=== PATIENT | male | born 1950 | race Caucasian/White ===

== ENCOUNTER → 2021-05-08 | Outpatient (CLI) | payer OTHER ==
[~2021-05-08] MED LIST: ATOR80TA59 PO; FLOM0.4C39 PO; METF-839 PO; OMEP10CASR PO; RAMI1CAP21 PO; VITA-183 PO; VITMTA PO
== END ==
LOC: M LABSMTC 09:11
PROVIDERS: ATTEND Anesthesiology
DX: Z11.52 Encounter for screening for COVID-19 (principal)

== ENCOUNTER 2021-05-13 12:52 | Day surgery (SDC) | payer OTHER ==
[~2021-05-13] VITALS: Ht 182.9 cm; Wt 71.3 kg
[~2021-05-13 12:52] MED LIST changes: +LR 1,000 ML IV ONE; +ceFAZolin SOD 2 GM in IV 1 EA IV ONE
--- OUTSIDE RECORDS SUMMARY | 2021-05-13 12:57 | CCD ---
Author Author [facility] Organization [facility] Address Unknown Phone Unavailable Care Team Providers Care Negative Cutter Name Role Phone Amado Nj Unavailable PROBLEMS Type Condition ICD9-CM Code [id number] Code Onset Dates Condition S tatus W/U Status Risk SNOMED Code Notes Problem Elevated PSA R97.20 Active confirmed 5744735 05 Problem Prostate cancer C61 Active confirmed 2549 92204 Problem Other specified disorders of kidney and ureter N28 .89 Active confirmed 634474978 Problem Urinary retention due to benign prostatic hyperplasia N28.89 Active confirmed 837911516 ALLERGIES Allergen (clinical drug ingredient) Drug/Non Drug Allergy do cumented on EMR Reaction Allergy Type Onset Date Status Bee Sting Unknown Drug Allergy Active ENCOUNTERS from 1950 to 2021-05-06 Encounter Location Date Provider Diagnosis [facility] Urology [address] [phone] [place] [address] May, Amado Nj Urinary retention due to benign prostati c hyperplasia N28.89 IMMUNIZATIONS No Information SOCIAL HISTORY Tobacco Use: Social History Observation Description Date Details (start date - stop date) Current Smoker Sex Assigned At : Social History Observation Description Sex Assigned At Unknown Tobacco Use: Question Answer Notes Are you a: current smoker How many cigarettes a day do you smoke? 05-25 REASON FOR REFERRAL No Information VITAL SIGNS Weight 165 lbs May, Weight-kg 74.84 kg May, Height 72 in May, BMI 22.38 kg/m2 May, Heart Rate 88 /min May, Respiratory Rate 18 /min May, Temperature 97.6 degrees Fahrenheit May, Oximetry 99 May, Blood pressure systolic 126 mm Hg May, Blood pressure diastolic 74 mm Hg May, MEDICATIONS Medication SIG (Take, Route, Frequency, Duration) Notes Start Da te End Date Status metFORMIN HCl 500 MG 1 tablet with a meal Orally Once a day for 30 da y(s) Active Tamsulosin HCl 0.4 MG 1 capsule Orally Once a day for 30 day(s) Active Cipro 500 MG 1 tablet Orally every 12 hrs (start taking the evening prior to your procedure) Jan, Not-Taking Ciprofloxacin HCl 500 MG 1 tablet Orally every 12 hrs for 10 day(s) Not-Taking Digestive Advantage - as directed Orally Active Fleet Enema 7-19 GM/118ML as directed Rectal as direct ed the morning of procedure Jan, Not-Taking Atorvastatin Calcium 80 MG 1 tablet Orally Once a day for 30 day(s) Active Multivitamin - 1 tablet Orally Once a day for 30 day(s) Active Ramipril 1.25 MG 1 capsule Orally Once a day for 30 day(s) Active Cholecalciferol 25 MCG (1000 UT) 1 capsule Orally Once a day for 30 day(s) Active Omeprazole 20 MG 1 capsule 30 minutes before morning meal Orally Once a day for 30 day(s) Active PROCEDURES from 1950 to 2021-05-06 Procedure Date Ordered Result Body Site Valdez Catheter Insertion 16F 2021-05-06 N/A Med: Lidocaine Jelly 2% 6ml Intravesically (Glydo) 2021-05-06 N/A RESULTS No Results REASON FOR VISIT CATH CHANGE WITH UCULT COLLECTION MEDICAL (GENERAL) HISTORY Type Description Date Medical History diabetes type 2 Medical History gross hematuria Medical History urinary retention Medical History elevated psa Medical History prostate cancer Surgical History hernia repair Surgical History appendectomy Surgical History stent placement in heart Surgical History TRUS Bx Surgical History fiducial marker placement 02/2021 Hospitalization History surgery Goals Section No Information Health Concerns No Information MEDICAL EQUIPMENT No Information MENTAL STATUS No Information FUNCTIONAL STATUS No Information ASSESSMENTS Encounter Date Diagnosis Assessment Notes Treatment Notes Treatm ent Clinical Notes May, Urinary retention due to sherman ign prostatic hyperplasia (ICD-10 - N28.89) PLAN OF TREATMENT Future Test Test Name Order Date URINE CULTURE [id number] UA URINALYSIS [id number] Next Appt Details Provider Name:Zeynep Oh, 2021-05-06 0 08:00:00 AM, [address], , [place], [address], Provider Name:Amado Llanos Clem, 01:00:00 PM, [address] [address], , [place], [address], Insurance Providers Payer Name Payer Address Payer Phone Insured Name Patient Relati onship to Insured Coverage Start Date Coverage End Date MEDICARE Part A and B [address] [facility] [address] [place] 'S ADMINSTRATION [place] CARE [address] [address] [facility] [address] [place]
--- OUTSIDE RECORDS SUMMARY | 2021-05-13 12:57 | CCD ---
Author Author [facility] Organization [facility] Address Unknown Phone Unavailable Care Team Providers Care Cap And Hat Production Supervisor Name Role Phone Clem Amado Unavailable PROBLEMS Type Condition ICD9-CM Code [id number] Code Onset Dates Condition S tatus W/U Status Risk SNOMED Code Notes Problem Elevated PSA R97.20 Active confirmed 1844503 05 Problem Prostate cancer C61 Active confirmed 2549 27447 Problem Other specified disorders of kidney and ureter N28 .89 Active confirmed 094513754 Problem Urinary retention due to benign prostatic hyperplasia N28.89 Active confirmed 038387553 ALLERGIES Allergen (clinical drug ingredient) Drug/Non Drug Allergy do cumented on EMR Reaction Allergy Type Onset Date Status Bee Sting Unknown Drug Allergy Active ENCOUNTERS from 1950 to 2021-05-10 Encounter Location Date Provider Diagnosis [facility] Urology [address] [address] [phone] [place] [address] May, Amado Nj IMMUNIZATIONS No Information SOCIAL HISTORY Tobacco Use: Social History Observation Description Date Details (start date - stop date) Current Smoker Sex Assigned At : Social History Observation Description Sex Assigned At Unknown Tobacco Use: Question Answer Notes Are you a: current smoker How many cigarettes a day do you smoke? 05-25 REASON FOR REFERRAL No Information VITAL SIGNS No information MEDICATIONS Medication SIG (Take, Route, Frequency, Duration) Notes Start Da te End Date Status Atorvastatin Calcium 80 MG 1 tablet Orally Once a day for 30 day(s) Unknown Multivitamin - 1 tablet Orally Once a day for 30 day(s) Unknown Tamsulosin HCl 0.4 MG 1 capsule Orally Once a day for 30 day(s) Unknown Cipro 500 MG 1 tablet Orally every 12 hrs (start taking the evening prior to your procedure) Jan, Unknown Omeprazole 20 MG 1 capsule 30 minutes before morning meal Orally Once a day for 30 day(s) Unknown Fleet Enema 7-19 GM/118ML as directed Rectal as direct ed the morning of procedure Jan, Unknown Cholecalciferol 25 MCG (1000 UT) 1 capsule Orally Once a day for 30 day(s) Unknown metFORMIN HCl 500 MG 1 tablet with a meal Orally Once a day for 30 da y(s) Unknown Ciprofloxacin HCl 500 MG 1 tablet Orally every 12 hrs for 10 day(s) Unknown levoFLOXacin 500 MG 1 tablet Orally Once a day May, Active Ramipril 1.25 MG 1 capsule Orally Once a day for 30 day(s) Unknown Digestive Advantage - as directed Orally Unknown PROCEDURES No Information RESULTS No Results REASON FOR VISIT abx MEDICAL (GENERAL) HISTORY Type Description Date Medical [...] No Information FUNCTIONAL STATUS No Information ASSESSMENTS No Information PLAN OF TREATMENT Medication Medication Name Sig Start Date Stop Date levoFLOXacin 500 MG 1 tablet Orally Once a day May, Next Appt Details Provider Name:Zeynep Oh, 2021-05-06 0 08:00:00 AM, [address] [address], , [place], [address], Provider Name:Amado Nj, 01:00:00 PM, [address] [address], , [place], [address], Insurance Providers Payer Name Payer Address Payer Phone Insured Name Patient Relati onship to Insured Coverage Start Date Coverage End Date MEDICARE Part A and B [address] [facility] [phone] [place] 'S ADMINSTRATION [place]) NON VA CARE [address] [address] [place] [address] [address] [address]
--- OUTSIDE RECORDS SUMMARY | 2021-05-13 12:57 | CCD ---
Author Author [facility] Organization [facility] Address Unknown Phone Unavailable Care Team Providers Care Salvager Helper Name Role Phone Clem Amado Unavailable PROBLEMS Type Condition ICD9-CM Code INM46-NC Code Onset Dates Condition S tatus W/U Status Risk SNOMED Code Notes Problem Elevated PSA R97.20 Active confirmed 7827278 05 Problem Prostate cancer C61 Active confirmed 2549 59516 Problem Other specified disorders of kidney and ureter N28 .89 Active confirmed 348021790 Problem Urinary retention due to benign prostatic hyperplasia N28.89 Active confirmed 095222676 ALLERGIES Allergen (clinical drug ingredient) Drug/Non Drug Allergy do cumented on EMR Reaction Allergy Type Onset Date Status Bee Sting Unknown Drug Allergy Active ENCOUNTERS from 1950 to 2021-05-06 Encounter Location Date Provider Diagnosis [facility] Urology [address] [address] [phone] [place] [address] May, Amado Nj IMMUNIZATIONS No Information SOCIAL [...] a day for 30 day(s) Active PROCEDURES No Information RESULTS No Results REASON FOR VISIT cath orders and culture orders MEDICAL (GENERAL) HISTORY Type Description Date Medical [...] Information ASSESSMENTS No Information PLAN OF TREATMENT Next Appt Details Provider Name:Zeynep Oh, 2021-05-06 0 08:00:00 AM, [address] [address], , [place], [address], Provider Name:Amado Nj, 01:00:00 PM, [address] [address], , [place], [address], Insurance Providers Payer Name Payer Address Payer Phone Insured Name Patient Relati onship to Insured Coverage Start Date Coverage End Date 'S ADMINSTRATION ([place]) NON VA CARE [address] [address] [facility] [address] [place] MEDICARE Part A and B [address] [facility] [address] [place]
--- OUTSIDE RECORDS SUMMARY | 2021-05-13 12:58 | CCD ---
Author Author [facility] Organization [facility] ems Address Unknown Phone Unavailable Care Team Providers Care Ice Cream Truck Driver Name Role Phone Amado Nj Unavailable PROBLEMS Type Condition ICD9-CM Code UFY40-DG Code Onset Dates Condition S tatus W/U Status Risk SNOMED Code Notes Problem Elevated PSA R97.20 Active confirmed 5555841 05 Problem Prostate cancer C61 Active confirmed 2549 75303 Problem Urinary retention due to benign prostatic hyperplasia N28.89 Active confirmed 968222309 ALLERGIES Allergen (clinical drug ingredient) Drug/Non Drug Allergy do cumented on EMR Reaction Allergy Type Onset Date Status Bees Unknown Non Drug Allergy Active ENCOUNTERS from 1950 to 2021-02-26 Encounter Location Date Provider Diagnosis [facility] Urology [address] [facility] [phone] [place] [address] Feb, Amadodane Montenegroler Prostate cancer C61 IMMUNIZATIONS No Information SOCIAL HISTORY Tobacco Use: Social History Observation Description Date Details (start date - stop date) Current Smoker Sex Assigned At : Social History Observation Description Sex Assigned At Unknown Tobacco Use: Question Answer Notes Are you a: current smoker How many cigarettes a day do you smoke? 05-25 REASON FOR REFERRAL No Information VITAL SIGNS Weight 165 lbs Feb, Weight-kg 74.84 kg Feb, Height 72 in Feb, BMI 22.38 kg/m2 Feb, Heart Rate 97 /min Feb, Respiratory Rate 18 /min Feb, Oximetry 98 Feb, Blood pressure systolic 124 mm Hg Feb, Blood pressure diastolic 80 mm Hg Feb, MEDICATIONS Medication SIG (Take, Route, Frequency, Duration) Notes Start Da te End Date Status metFORMIN HCl 500 MG 1 tablet with a meal Orally Once a day for 30 da y(s) Active Ciprofloxacin HCl 500 MG 1 tablet Orally every 12 hrs for 10 day(s) Not-Taking Atorvastatin Calcium 80 MG 1 tablet Orally Once a day for 30 day(s) Active Omeprazole 20 MG 1 capsule 30 minutes before morning meal Orally Once a day for 30 day(s) Active Fleet Enema 7-19 GM/118ML as directed Rectal as direct ed the morning of procedure Jan, Active Tamsulosin HCl 0.4 MG 1 capsule Orally Once a day for 30 day(s) Active Digestive Advantage - as directed Orally Active Multivitamin - 1 tablet Orally Once a day for 30 day(s) Active Ramipril 1.25 MG 1 capsule Orally Once a day for 30 day(s) Active Cholecalciferol 25 MCG (1000 UT) 1 capsule Orally Once a day for 30 day(s) Active Cipro 500 MG 1 tablet Orally every 12 hrs (start taking the evening prior to your procedure) Jan, Active PROCEDURES No Information RESULTS No Results REASON FOR VISIT f/u CT and Bone Scan results MEDICAL (GENERAL) HISTORY Type Description Date Medical History diabetes type 2 Medical History gross hematuria Medical History urinary retention Medical History elevated psa Surgical History hernia repair Surgical History appendectomy Surgical History stent placement in heart Surgical History TRUS Bx Hospitalization History surgery Goals Section No Information Health Concerns No Information MEDICAL EQUIPMENT No Information MENTAL STATUS No Information FUNCTIONAL STATUS No Information ASSESSMENTS Encounter Date Diagnosis Assessment Notes Treatment Notes Treatm ent Clinical Notes Feb, Prostate cancer (ICD-10 - C61) - CT and bone scan results discussed - EBRT recommended for treatment - will send a referral to [facility] rad onc for EBRT - informed consent signed for prostate fiducial marker placement - f/u for fiducials, eligard injection, and cath change in approx 2 wks PLAN OF TREATMENT Medication Medication Name Sig Start Date Stop Date Cipro 500 MG 1 tablet Orally every 12 hrs (start taking the evening prior to your procedure) Jan, Fleet Enema 7-19 GM/118ML as directed Rectal as direct ed the morning of procedure Jan, Treatment Notes Assessment Notes Clinical Notes Prostate cancer - CT and bone scan r esults discussed- EBRT recommended for treatment- will send a referral to [facility] rad onc for EBRT- informed consent signed for prostate fiducial marker placement- f/u for fiducials, eligard injection, and cath change in approx 2 wks Next Appt Details Provider Name:Amado Nj, 10:15:00 AM, [address] [address], , [place], [address], Insurance Providers Payer Name Payer Address Payer Phone Insured Name Patient Relati onship to Insured Coverage Start Date Coverage End Date 'S ADMINSTRATION ([place]) NON VA CARE [address] [address] [facility] [address] [address] MEDICARE Part A and B [address] [facility] [address] [place] self
--- OUTSIDE RECORDS SUMMARY | 2021-05-13 12:58 | CCD ---
Author Author [facility] [employer] Organization [facility] [employer] [facility] Address Unknown Phone Unavailable Care Team Providers Care Loaf Counter Name Role Phone Amado Nj Unavailable PROBLEMS Type Condition ICD9-CM Code CDH34-TL Code Onset Dates Condition S tatus W/U Status Risk SNOMED Code Notes Problem Elevated PSA R97.20 Active confirmed 2171438 05 Problem Prostate cancer C61 Active confirmed 2549 13892 Problem Urinary retention due to benign prostatic hyperplasia N28.89 Active confirmed 671319684 ALLERGIES Allergen (clinical drug ingredient) Drug/Non Drug Allergy do cumented on EMR Reaction Allergy Type Onset Date Status Bees Unknown Non Drug Allergy Active ENCOUNTERS from 1950 to 2021-03-06 Encounter Location Date Provider Diagnosis [facility] [address] [facility] [facility] [phone] [place] [address] Feb, Amado Nj Prostate cancer C61 and Urinary retentio n due to benign prostatic hyperplasia N28.89 IMMUNIZATIONS No Information SOCIAL HISTORY Tobacco Use: Social History Observation Description Date Details (start date - stop date) Current Smoker Sex Assigned At : Social History Observation Description Sex Assigned At Unknown Tobacco Use: Question Answer Notes Are you a: current smoker How many cigarettes a day do you smoke? 11-20 REASON FOR REFERRAL No Information VITAL SIGNS No information MEDICATIONS Medication SIG (Take, Route, Frequency, Duration) Notes Start Da te End Date Status Digestive Advantage - as directed Orally Active metFORMIN HCl 500 MG 1 tablet with a meal Orally Once a day for 30 da y(s) Active Cholecalciferol 25 MCG (1000 UT) 1 capsule Orally Once a day for 30 day(s) Active Multivitamin - 1 tablet Orally Once a day for 30 day(s) Active Cipro 500 MG 1 tablet Orally every 12 hrs (start taking the evening prior to your procedure) Jan, Active Ciprofloxacin HCl 500 MG 1 tablet Orally every 12 hrs for 10 day(s) Not-Taking Ramipril 1.25 MG 1 capsule Orally Once a day for 30 day(s) Active Omeprazole 20 MG 1 capsule 30 minutes before morning meal Orally Once a day for 30 day(s) Active Atorvastatin Calcium 80 MG 1 tablet Orally Once a day for 30 day(s) Active Tamsulosin HCl 0.4 MG 1 capsule Orally Once a day for 30 day(s) Active Fleet Enema 7-19 GM/118ML as directed Rectal as direct ed the morning of procedure Jan, Active PROCEDURES from 1950 to 2021-03-06 Procedure Date Ordered Result Body Site Valdez Catheter Coude Insertion 16F 2021-03-05 N/A Medication: Bupivacaine 0.25% Dilutent 30ml (Marcaine) 2021-02-05 1 N/A Medication: 2% Lidocaine Dilutent 2021-03-05 N/A Medication: Eligard 45mg SQ (Leuprolide) 2021-03-05 N/A Med: Lidocaine Jelly 2% 6ml Intravesically (Glydo) 2021-03-05 N/A RESULTS No Results REASON FOR VISIT fiducial marker, Eligarmariana, Cath change MEDICAL (GENERAL) HISTORY Type Description Date Medical [...] Notes Feb, Prostate cancer (ICD-10 - C61) Feb, Urinary retention due to sherman ign prostatic hyperplasia (ICD-10 - N28.89) PLAN OF TREATMENT Treatment Notes Test Name Order Date SMT FIDUCIARY MARKER PLACEMENT 2021-03-05 Next Appt Details monthly on nurse schedule for humza navarro, 6 months w/ me for eligard and TOV Reason:prostate cancer, urinary retention Provider Name:Amado Nj, 09:00:00 AM, [address] [address], , [place], [address], Provider Name:Amado Nj, 01:00:00 PM, [address] [address], , [place], [address], Follow Up:monthly on nurse schedule for cath changes, 6 months w/ me for eligard and TOVprostate cancer, urinary retention Insurance Providers Payer Name Payer Address Payer Phone Insured Name Patient Relati onship to Insured Coverage Start Date Coverage End Date MEDICARE Part A and B [address] [facility] [phone] [place] 'S [place]MINSTRATION [place]) NON [place]ARE [address] [address] [facility] [address] [address] [address] [address]
--- OUTSIDE RECORDS SUMMARY | 2021-05-13 12:58 | CCD ---
Author Author [facility] [employer] [facility] Organization [facility] [employer] Address Unknown Phone Unavailable Care Team Providers Care Oracle Hrms Developer Name Role Phone ClemAmado russell Unavailable PROBLEMS Type Condition ICD9-CM Code [id number] Code Onset Dates Condition S tatus W/U Status Risk SNOMED Code Notes Problem Elevated PSA R97.20 Active confirmed 6103797 05 Problem Prostate cancer C61 Active confirmed 2549 41500 Problem Urinary retention due to benign prostatic hyperplasia N28.89 Active confirmed 972941924 ALLERGIES Allergen (clinical drug ingredient) Drug/Non Drug Allergy do cumented on EMR Reaction Allergy Type Onset Date Status Bees Unknown Non Drug Allergy Active ENCOUNTERS from 1950 to 2021-02-20 Encounter Location Date Provider Diagnosis [facility] [address] [facility] [facility] [phone] [place] [address] Feb, Amado Nj IMMUNIZATIONS No Information SOCIAL HISTORY [...] a day for 30 da y(s) Active Fleet Enema 7-19 GM/118ML as directed Rectal as directed the morning of biopsy Jan, Active Cholecalciferol 25 MCG (1000 UT) 1 capsule Orally Once a day for 30 day(s) Active Multivitamin - 1 tablet Orally Once a day for 30 day(s) Active Digestive Advantage - as directed Orally Active Omeprazole 20 MG 1 capsule 30 minutes before morning meal Orally Once a day for 30 day(s) Active Cipro 500 MG 1 tablet Orally 1 tab the ni ght before biospy and 1 tab the morning of Jan, Active Atorvastatin Calcium 80 MG 1 tablet Orally Once a day for 30 day(s) Active Ramipril 1.25 MG 1 capsule Orally Once a day for 30 day(s) Active Ciprofloxacin HCl 500 MG 1 tablet Orally every 12 hrs for 10 day(s) Active Tamsulosin HCl 0.4 MG 1 capsule Orally Once a day for 30 day(s) Active PROCEDURES No Information RESULTS No Results REASON FOR VISIT Needs Appt MEDICAL (GENERAL) HISTORY Type Description Date Medical History diabetes type 2 Medical History gross hematuria Medical History urinary retention Medical History elevated psa Surgical History hernia repair Surgical History appendectomy Surgical History stent placement in heart Hospitalization History surgery Goals Section No Information Health Concerns No Information MEDICAL EQUIPMENT No Information MENTAL STATUS No Information FUNCTIONAL STATUS No Information ASSESSMENTS No Information PLAN OF TREATMENT Next Appt Details Provider Name:Amado Nj, 02:00:00 PM, [address] [address], , [place], [address], Insurance Providers Payer Name Payer Address Payer Phone Insured Name Patient Relati onship to Insured Coverage Start Date Coverage End Date MEDICARE Part A and B [address] [facility] [phone] [place] 'S [place]STRATION [place]) [place] [address] [address] [facility] [id number] [place]
--- OUTSIDE RECORDS SUMMARY | 2021-05-13 12:58 | CCD | Summary of Care ---
Author Author [facility] Organization [facility] Address Unknown Phone Unavailable Care Team Providers Care Juice Weigher Name Role Phone Jose Maria Montes De Oca MD PCP Reason for Visit * Reason Comments Prostate Cancer Consult * Consultation (Routine) Referred By Contact Referred To Contact Status Reason Specialty Diagnoses [place] [address] [place] [address] Naren Roque MD [address] [place] [id number] Authorized Radiation Diagnoses Oncology Prostate Ca P rocedures CONSULT Encounter Details Care Team Description Date Type Department Naren Roque MD [address] [place] [address] [id number] Malignant neoplasm of prostate (CMS/HCC) (Primary Dx) 03/13/2021 [facility] RADIATION MEDI CINE Encounter [facility] [address] [place] [address] Allergies No Known Active Allergiesdocumented as of this encounter (statuses as of 04/13/2021) Medications End Date Status Medication Sig Dispensed Refills Start Date Active tamsulosin (FLOMAX) 0.4 Take 0.4 mg 0 mg 24 hr capsule by mouth 1 1 (one) time each day. Active cholecalciferol, vitamin Take by 0 D3, 100 mcg (4,000 unit) mouth. capsule Active multivitamin capsule Take 1 0 capsule by mouth 1 (one) time each day. Active metFORMIN (GLUCOPHAGE) Take 500 mg 0 500 mg tablet by mouth 1 (one) time each day. Active ramipriL (ALTACE) 1.25 mg Take 1.25 mg 0 capsule by mouth 1 (one) time each day. Active atorvastatin (LIPITOR) 80 Take 80 mg by 0 mg tablet mouth 1 (one) time each day. Active omeprazole (PriLOSEC) 20 Take 20 mg by [address] capsule mouth 1 (one) time each day. Do not crush or chew. documented as of this encounter (statuses as of 04/13/2021) Active Problems Problem Noted Date Malignant neoplasm of prostate 03/13/2021 Cancer Staging: Clinical: Stage IIIA (c T1c, cN0, cM0, PSA: 53, Grade Group: 4) - Signed by Naren Roque MD on 03/13/20 21 documented as of this encounter (statuses as of 04/13/2021) Social History Date Tobacco Use Types Packs/Day Years Used Current Every Day Smoker Cigarettes 1 62 Smokeless Tobacco: Never Used Comments Alcohol Use Standard Drinks/Week rare use Yes 0 (1 standard drink = 0.6 o z pure alcohol) Alcohol Habits Answer Date Recorded How often do you have a drink containing alcohol? No t asked How many drinks containing alcohol do you have on No t asked a typical day when you are drinking? How often do you have six or more drinks on one Not asked occasion? Comment: rare use 03/13/2021 Sex Assigned at Date Recorded Not on file Date Recorded COVID-19 Exposure Response 03/13/2021 2:26 PM EDT In the last month, have you been in contact with No / Unsure someone who was confirmed or suspected to have Coronavirus / COVID-19? documented as of this encounter Last Filed Vital Signs Reading Time Taken Comments Vital Sign 132/75 03/13/2021 2:43 PM EDT Blood Pressure 94 03/13/2021 2:43 PM EDT Pulse 36.5 C (97.7 F) 03/13/2021 2:43 PM EDT Temperature 20 03/13/2021 2:43 PM EDT Respiratory Rate - - Oxygen Saturation - - Inhaled Oxygen Concentration 74.3 kg (163 lb 12.8 oz) 03/13/2021 2:43 PM EDT Weight 177.8 cm (5' 10") 03/13/2021 2:43 PM EDT Height 23.5 03/13/2021 2:43 PM EDT Body Mass Index documented in this encounter Progress Notes * Naren Roque MD - 03/13/2021 3:00 PM EDT Images from the original note were not included. RADIATION ONCOLOGY CONSULT NAME: Jerson Ken Date of consultation: 03/13/2021 Referring doctor: Amado Nj MD RADIATION ONCOLOGIST: Dr. Roque UROLOGIST: Dr. Nj PCP: Dr. Montes De Oca Diagnosis and stage: Cancer Staging Malignant neoplasm of prostate (CMS/HCC) Staging form: Prostate, AJCC 8th Edition - Clinical: Stage IIIA (cT1c, cN0, cM0, PSA: 53, Grade Group: 4) - Signed by Virgil Roque MD on 03/13/2021 Subjective HISTORY OF PRESENT ILLNESS: Jerson Ken is a 70 y.o. male with prostate carcinoma group IIIA ([id number], Gleaso n 8 = 4 + 4, pre-treatment PSA 53). The patient is here for discussion about ra diotherapy by the request of Dr. Nj. His oncologic history started with an elevated PSA. He underwent prostate biopsy on 01/22/21. 06/16 cores positive for carcinoma. T he highest score was Abrahan 8 = 4 + 4. Bone scan and CT abd/pelvis on 02/13/21 was negative for disease. He underwent ADT and prostate fiducials on 03/05/21. He currently has a catheter placed because of urinary obstruction. His current AUA symptom breakdown is as follows: Symptom Score Incomplete Emptying 0 Frequency 5 Intermittency 0 Urgency 0 Weak Stream 0 Straining 0 Nocturia 0 Total AUA Symptom Score 5 (Total: 0-7 mild symptoms; 8-19 moderate; 20-35 severe) His current quality of life due to urinary symptoms is: Terrible His modified international index of erectile function (IIEF) breakdown is as fol lows: Domain Score Erectile Confidence 1 Penetration Difficulty 0 Erectile Maintenance 0 Erectile Durability 0 [place] Satisfaction 0 Total Erectile Function Score 1 (Total: 0-7 severe dysfunction; 8-11 moderate; 12-16 [id number], 17-21 mil d, 22-25 none) History of radiation therapy: No History of connective tissue disorders: No Pacemaker present: No Last colonoscopy: Never ECO PAST MEDICAL HISTORY: Past Medical History: Diagnosis Date Chronic kidney disease COPD (chronic obstructive pulmonary disease) ([facility]/HCC) Diabetes mellitus (CMS/HCC) GERD (gastroesophageal reflux disease) Hypertension Myocardial infarction (CMS/HCC) Prostate cancer (CMS/HCC) 01/22/2021 Prostatic adenocarcinoma PAST SURGICAL HISTORY: Past Surgical History: Procedure Laterality Date APPENDECTOMY CORONARY ARTERY BYPASS GRAFT HERNIA REPAIR N/A FAMILY HISTORY: Family History Problem Relation Age of Onset Cancer Mother Cancer Father Cancer Sister Cervical cancer Sister Cancer Maternal Grandmother Cancer Maternal Grandfather Cancer Paternal Grandmother Cancer Paternal Grandfather SOCIAL HISTORY: Social History Tobacco Use Smoking status: Current Every Day Smoker Packs/day: 1.00 Years: 62.00 Pack years: 62.00 Types: Cigarettes Smokeless tobacco: Never Used Substance Use Topics Alcohol use: Yes Comment: rare use Drug use: Never ALLERGIES: Allergies as of 03/13/2021 (No Known Allergies) MEDICATIONS: Current Outpatient Medications Medication Sig Dispense Refill atorvastatin (LIPITOR) 80 mg tablet Take 80 mg by mouth 1 (one) time each day. cholecalciferol, vitamin D3, 100 mcg (4,000 unit) capsule Take by mouth. metFORMIN (GLUCOPHAGE) 500 mg tablet Take 500 mg by mouth 1 (one) time ea ch day. multivitamin capsule Take 1 capsule by mouth 1 (one) time each day. omeprazole (PriLOSEC) [address] capsule Take 20 mg by mouth 1 (one) time e ach day. Do not crush or chew. ramipriL (ALTACE) 1.25 mg capsule Take 1.25 mg by mouth 1 (one) time each day. tamsulosin (FLOMAX) 0.4 mg 24 hr capsule Take 0.4 mg by mouth 1 (one) cain e each day. No current facility-administered medications for this encounter. REVIEW OF SYSTEMS: Review of Systems All other systems reviewed and are negative. Objective PHYSICAL EXAM: Visit Vitals BP 132/75 Pulse (!) 94 Temp 36.5 C (97.7 F) Resp 20 Ht 1.778 m (5' 10") Wt 74.3 kg (163 lb 12.8 oz) BMI 23.50 kg/m Smoking Status Current Every Day Smoker BSA 1.92 m Body mass index is 23.5 kg/m. Physical Exam Vitals and nursing note reviewed. Constitutional: Appearance: Normal appearance. HENT: Head: Normocephalic and atraumatic. Pulmonary: Effort: Pulmonary effort is normal. Neurological: General: No focal deficit present. Mental Status: He is alert and oriented to person, place, and time. Psychiatric: Mood and Affect: Mood normal. Behavior: Behavior normal. Thought Content: Thought content normal. Judgment: Judgment normal. Assessment/Plan IMPRESSION: Jerson Ken is a 70 y.o. male with prostate carcinoma group IIIA ([id number], Gleaso n 8 = 4 + 4, pre-treatment PSA 53). RECOMMENDATIONS: The patient has high risk prostate cancer. Staging work-up is complete. Treatment options were discussed in detail with the patient including active randee veillance, external beam radiation therapy, brachytherapy, and prostatectomy. We would not recommend active surveillance given high risk disease. Prostatectomy is not an options. He is only a candidate for external beam radiation. The logi stics, advantages, and disadvantages of all treatment approaches were discussed at length. The details of course of external beam radiation therapy including those of martín tment planning simulation to be followed daily treatments given Thursday through for 20 to 30 minutes of his time daily was described at length. Patient is only eligible for 9 weeks of treatment. We have concern for 5.5 week s with his current urinary obstruction and risk of increased acute side effects. He is not a candidate for brachytherapy. Side effects of radiation therapy may include but are not necessarily limited to fatigue, increased urinary frequency, urgency, nocturia, and dysuria. The patie nt may additionally experience increased frequency of bowel movements, loose sto ols, rectal straining, gas, eructation, or diarrhea. Long-term risks include but not limited to urinary stricture, urinary incontinence, dysuria, proctitis, rec moody ulcer, change in bowel habits, small bowel obstruction, increased risk of pe lvic fracture, lymphedema. Long-term risks of erectile dysfunction were discuss ed in detail. The rare but potentially serious complications permanent tissue in jury to the bladder or rectum requiring surgical intervention to correct was dis cussed as well. We finally discussed the risk of secondary malignancy from radi ation. The use of androgen deprivation therapy (ADT) was discussed in detail including the pros and cons. The patient will follow-up with his urologist to discuss and obtain ADT. For high risk prostate cancer, he will require 2-3 years of the rmones. We will discuss treatment for his urinary obstruction. We have concern that con tinuing with radiation now may lead to persistent urinary obstruction and/or per manent carbone need. We will talk to Dr. Nj about management. 45 minutes were spent [id number] with the patient with more than 50 percent co unseling and/or coordination of care including discussing work-up and treatment. At the end of our consultation, all questions were answered in great detail to lamar leon and the patient demonstrated a good understanding of our recom mendations. Thank you very much for allowing us to participate in the care of your patient. Should there be any questions or concerns regarding any aspect of this consulta tion please feel free to contact me directly. Naren Roque MD Cloud Architect of Radiation Oncology, [facility] Clinical Science Tutor, [facility] * Erendira Paul RN - 03/13/2021 3:00 PM EDT Todays date: 03/13/2021 Patients name: Jerson Ken Patients : 1950 Visit Vitals BP 132/75 Pulse (!) 94 Temp 36.5 C (97.7 F) Resp 20 Ht 1.778 m (5' 10") Wt 74.3 kg (163 lb 12.8 oz) BMI 23.50 kg/m Smoking Status Current Every Day Smoker BSA 1.92 m The patient does not have a documented plan of care to address pain. No Known Allergies Current Outpatient Medications on File Prior to Encounter Medication Sig Dispense Refill atorvastatin (LIPITOR) 80 mg tablet Take 80 mg by mouth 1 (one) time each day. cholecalciferol, vitamin D3, 100 mcg (4,000 unit) capsule Take by mouth. metFORMIN (GLUCOPHAGE) 500 mg tablet Take 500 mg by mouth 1 (one) time ea ch day. multivitamin capsule Take 1 capsule by mouth 1 (one) time each day. omeprazole (PriLOSEC) [address] capsule Take 20 mg by mouth 1 (one) time e ach day. Do not crush or chew. ramipriL (ALTACE) 1.25 mg capsule Take 1.25 mg by mouth 1 (one) time each day. tamsulosin (FLOMAX) 0.4 mg 24 hr capsule Take 0.4 mg by mouth 1 (one) cain e each day. No current facility-administered medications on file prior to encounter. Review of Systems Constitutional: Positive for appetite change and unexpected weight change. Negat ochoa for fatigue. 40 pound weight loss in past two months Respiratory: Positive for cough. Negative for hemoptysis and shortness of breath . Cardiovascular: Negative for chest pain and palpitations. Gastrointestinal: Negative for constipation, diarrhea, nausea and vomiting. Genitourinary: Positive for difficulty urinating. Indwelling catheter since January 11 due. Erendira Paul RN [facility] Radiation Oncology documented in this encounter Plan of Treatment Health Maintenance Due Date Last Done Comments Colonoscopy 1950 Colorectal Cancer 1950 Screening FIT-DNA 1950 FOBT Annual 1950 Sigmoidoscopy 1950 MMR Vaccines (1 of 1 - 10/12/1951 Standard series) Varicella Vaccines (1 of 10/12/1951 2 - 2-dose childhood series) Pneumococcal Vaccine: 65+ 1956 Years (1 of 4 - PCV13) DTaP,Tdap,and Td Vaccines 1957 (1 - Tdap) COVID-19 Vaccine (1) 1966 Lung Cancer Screening 2005 Influenza Vaccine (#1) 2021 HIB Vaccines Aged Out No longer eligible based on patient's age to complete this topic Hepatitis A Vaccines Aged Out No longer eligibl e based on patient's age to complete this topic Hepatitis B Vaccines Aged Out No longer eligibl e based on patient's age to complete this topic IPV Vaccines Aged Out No longer eligible based on patient's age to complete this topic documented as of this encounter Results Not on filedocumented in this encounter Visit Diagnoses Diagnosis Malignant neoplasm of prostate (CMS/HCC ) - Primary Malignant neoplasm of prostate documented in this encounter Insurance Type Payer Benefit Subscriber ID Effective Phone Address Plan / Dates Group [employer] VACCN [id number] 2014- [phone] [place] [address] [phone] documented as of this encounter
--- OUTSIDE RECORDS SUMMARY | 2021-05-13 12:58 | CCD ---
Author Author [facility] Organization [facility] Address Unknown Phone Unavailable Care Team Providers Care Head Inspector And Center Marker Name Role Phone Zeynep Oh Unavailable PROBLEMS Type Condition ICD9-CM Code [id number] Code Onset Dates Condition S tatus W/U Status Risk SNOMED Code Notes Problem Elevated PSA R97.20 Active confirmed 2831638 05 Problem Prostate cancer C61 Active confirmed 2549 30998 Problem Urinary retention due to benign prostatic hyperplasia N28.89 Active confirmed 259411363 ALLERGIES Allergen (clinical drug ingredient) Drug/Non Drug Allergy do cumented on EMR Reaction Allergy Type Onset Date Status Bees Unknown Non Drug Allergy Active ENCOUNTERS from 1950 to 2021-04-05 Encounter Location Date Provider Diagnosis [facility] [address] [phone] [place] [address] Mar, Zeynep Oh Urinary retention due to benign prostati c hyperplasia N28.89 ; Prostate cancer C61 and Pre-op testing Z01.818 IMMUNIZATIONS No Information SOCIAL HISTORY Tobacco Use: Social History Observation Description Date Details (start date - stop date) Current Smoker Sex Assigned At : Social History Observation Description Sex Assigned At Unknown Tobacco Use: Question Answer Notes Are you a: current smoker How many cigarettes a day do you smoke? - REASON FOR REFERRAL No Information VITAL SIGNS Weight 165 lbs Mar, Height 72 in Mar, BMI 22.38 kg/m2 Mar, Heart Rate 92 /min Mar, Respiratory Rate 18 /min Mar, Temperature 97.0 degrees Fahrenheit Mar, Oximetry 97 Mar, Blood pressure systolic 128 mm Hg Mar, Blood pressure diastolic 66 mm Hg Mar, MEDICATIONS Medication SIG (Take, Route, Frequency, Duration) Notes Start Da te End Date Status Fleet Enema 7-19 GM/118ML as directed Rectal as direct ed the morning of procedure Jan, Not-Taking Ciprofloxacin HCl 500 MG 1 tablet Orally every 12 hrs for 10 day(s) Not-Taking Cipro 500 MG 1 tablet Orally every 12 hrs (start taking the evening prior to your procedure) Jan, Not-Taking Tamsulosin HCl 0.4 MG 1 capsule Orally Once a day for 30 day(s) Active Ramipril 1.25 MG 1 capsule Orally Once a day for 30 day(s) Active metFORMIN HCl 500 MG 1 tablet with a meal Orally Once a day for 30 da y(s) Active Multivitamin - 1 tablet Orally Once [...] 30 day(s) Active PROCEDURES from 1950 to 2021-04-05 Procedure Date Ordered Result Body Site Valdez Catheter Insertion 16F 2021-04-04 N/A Med: Lidocaine Jelly 2% 6ml Intravesically (Glydo) 2021-04-04 N/A RESULTS No Results REASON FOR VISIT set up surg - see tcom per Dr. Nj cath [facility] MEDICAL (GENERAL) HISTORY Type Description Date Medical [...] Notes Treatment Notes Treatm ent Clinical Notes Mar, Urinary retention due to sherman ign prostatic hyperplasia (ICD-10 - N28.89) Mar, Prostate cancer (ICD-10 - C61) Mar, Pre-op testing (ICD-10 - Z01.818) PLAN OF TREATMENT Treatment Notes Test Name Order Date PLZ CHEST 2 VIEW 2021-04-04 Electrocardiogram (EKG) 2021-04-04 Future Test Test Name Order Date Basic Metabolic Profile (BMP) [id number] CBC - Complete Blood Count [id number] PT & APTT [id number] Next Appt Details Provider Name:Amado Nj, 01:00:00 PM, [address] , , [place], [address], Insurance Providers Payer Name Payer Address Payer Phone Insured Name Patient Relati onship to Insured Coverage Start Date Coverage End Date MEDICARE Part A and B [address] [facility] [phone] [address] 'S ADMINSTRATION [place] [address] [address] [facility] [id number] [address] [address]
--- OUTSIDE RECORDS SUMMARY | 2021-05-13 12:58 | CCD ---
Author Author [facility] Organization [facility] Address Unknown Phone Unavailable Care Team Providers Care Thread Laster Name Role Phone ClemAmado russell Unavailable PROBLEMS Type Condition ICD9-CM Code KEP94-WH Code Onset Dates Condition S tatus W/U Status Risk SNOMED Code Notes Problem Elevated PSA R97.20 Active confirmed 2806987 05 Problem Prostate cancer C61 Active confirmed 2549 23377 Problem Urinary retention due to benign prostatic hyperplasia N28.89 Active confirmed 188574877 ALLERGIES Allergen (clinical drug ingredient) Drug/Non Drug Allergy do cumented on EMR Reaction Allergy Type Onset Date Status Bees Unknown Non Drug Allergy Active ENCOUNTERS from 1950 to 2021-04-02 Encounter Location Date Provider Diagnosis [facility] [address] [phone] [place] [address] Mar, Amado Nj IMMUNIZATIONS No Information SOCIAL HISTORY Tobacco Use: Social History Observation Description Date Details (start date - stop date) Current Smoker Sex Assigned At : Social History Observation Description Sex Assigned At Unknown Tobacco Use: Question Answer Notes Are you a: current smoker How many cigarettes a day do you smoke? -20 REASON FOR REFERRAL No Information VITAL SIGNS [...] the morning of procedure Jan, Active PROCEDURES No Information RESULTS No Results REASON FOR VISIT turP/[facility] MEDICAL (GENERAL) HISTORY Type Description Date Medical [...] TREATMENT Next Appt Details Provider Name:Zeynep Oh, 2021-03-08 0 08:30:00 AM, [address], , [place], [address], Provider Name:Amado Nj, 01:00:00 PM, [address], , [place], [address], Insurance Providers Payer Name Payer Address Payer Phone Insured Name Patient Relati onship to Insured Coverage Start Date Coverage End Date 'S [place]STR[place] CARE [address] [address] [facility] [id number] [address] MEDICARE Part A and B [address] [facility] [id number] [phone] [address] [employer] [address]
--- OUTSIDE RECORDS SUMMARY | 2021-05-13 12:59 | CCD ---
Author Author [facility] Organization [facility] Address Unknown Phone Unavailable Care Team Providers Care Religious Studies Professor Name Role Phone CASSANDRA, Srinivas HERNANDEZ MD Unavailable Unavailable PARSHALL, A DAVID CHU Unavailable Unavailable PARSHALL, A DAVID CHU Unavailable Unavailable PARSHALL, A DAVID CHU Unavailable Unavailable PARSHALL, A DAVID CHU Unavailable Unavailable PARSHALL, A DAVID CHU Unavailable Unavailable PARSHALL, A DAVID CHU Unavailable Unavailable PARSHALL, A DAVID CHU Unavailable Unavailable PARSHALL, A DAVID CHU Unavailable Unavailable PARSHALL, A DAVID CHU Unavailable Unavailable PARSHALL, A DAVID CHU Unavailable Unavailable PARSHALL, A DAVID CHU Unavailable Unavailable PARSHALL, A DAVID CHU Unavailable Unavailable PARSHALL, A DAVID CHU Unavailable Unavailable PARSHALL, A DAVID CHU Unavailable Unavailable PARSHALL, A DAVID CHU Unavailable Unavailable PARSHALL, A DAVID CHU Unavailable Unavailable PARSHALL, A DAVID CHU Unavailable Unavailable PARSHALL, A DAVID CHU Unavailable Unavailable PARSHALL, A DAVID CHU Unavailable Unavailable PARSHALL, A DAVID CHU Unavailable Unavailable PARSHALL, A DAVID CHU Unavailable Unavailable PARSHALL, A DAVID CHU Unavailable Unavailable PARSHALL, A DAVID CHU Unavailable Unavailable PARSHALL, A DAVID CHU Unavailable Unavailable PARSHALL, A DAVID CHU Unavailable Unavailable PARSHALL, A DAVID CHU Unavailable Unavailable PARSHALL, A DAVID CHU Unavailable Unavailable PARSHALL, A DAVID CHU Unavailable Unavailable PARSHALL, A DAVID CHU Unavailable Unavailable PARSHALL, A DAVID CHU Unavailable Unavailable PARSHALL, A DAVID CHU Unavailable Unavailable DiBella, Thiago Jiménez MD Unavailable Unavailable DiBella, Thiago Jiménez MD Unavailable Unavailable DiBella, Thiago Jiménez MD Unavailable Unavailable DiBella, Thiago Jiménez MD Unavailable Unavailable DiBella, Thiago Jiménez MD Unavailable Unavailable DiBella, Thiago Jiménez MD Unavailable Unavailable DiBella, Thiago Jiménez MD Unavailable Unavailable DiBella, Thiago Jiménez MD Unavailable Unavailable KOPIDLANSKY, Mary Ann COPPOLA JAVA LEAD ENGINEER-WEB CONTENT PRODUCER-C Unavailable Unava ilable KOPIDLANSKY, Mary Ann COPPOLA JAVA LEAD ENGINEER-WEB CONTENT PRODUCER-C Unavailable Unava ilable KOPIDLANSKY, Mary Ann COPPOLA APRN-WEB CONTENT PRODUCER-C Unavailable Unava ilable KOPIDLANSKY, Mary Ann COPPOLA APRN-WEB CONTENT PRODUCER-C Unavailable Unava ilable KOPIDLANSKY, Mary Ann COPPOLA APRN-WEB CONTENT PRODUCER-C Unavailable Unava ilable KOPIDLANSKY, Mary Ann COPPOLA APRN-WEB CONTENT PRODUCER-C Unavailable Unava ilable KOPIDLANSKY, Mary Ann COPPOLA APRN-WEB CONTENT PRODUCER-C Unavailable Unava ilable KOPIDLANSKY, Mary Ann COPPOLA APRN-WEB CONTENT PRODUCER-C Unavailable Unava ilable KOPIDLANSKY, Mary Ann COPPOLA APRN-WEB CONTENT PRODUCER-C Unavailable Unava ilable KOPIDLANSKY, Mary Ann COPPOLA APRN-WEB CONTENT PRODUCER-C Unavailable Unava ilable KOPIDLANSKY, Mary Ann COPPOLA JAVA LEAD ENGINEER-WEB CONTENT PRODUCER-C Unavailable Unava ilable KOPIDLANSKY, Mary Ann COPPOLA JAVA LEAD ENGINEER-WEB CONTENT PRODUCER-C Unavailable Unava ilable KOPIDLANSKY, Mary Ann COPPOLA JAVA LEAD ENGINEER-WEB CONTENT PRODUCER-C Unavailable Unava ilable KOPIDLANSKY, Mary Ann COPPOLA JAVA LEAD ENGINEER-WEB CONTENT PRODUCER-C Unavailable Unava ilable KOPIDLANSKY, Mary Ann COPPOLA APRN-WEB CONTENT PRODUCER-C Unavailable Unava ilable KOPIDLANSKY, Mary Ann COPPOLA APRN-WEB CONTENT PRODUCER-C Unavailable Unava ilable KOPIDLANSKY, Mary Ann COPPOLA JAVA LEAD ENGINEER-WEB CONTENT PRODUCER-C Unavailable Unava ilable KOPIDLANSKY, Mary Ann COPPOLA JAVA LEAD ENGINEER-WEB CONTENT PRODUCER-C Unavailable Unava ilable KOPIDLANSKY, Mary Ann COPPOLA JAVA LEAD ENGINEER-WEB CONTENT PRODUCER-C Unavailable Unava ilable KOPIDLANSKY, Mary Ann COPPOLA JAVA LEAD ENGINEER-WEB CONTENT PRODUCER-C Unavailable Unava ilable KOPIDLANSKY, Mary Ann COPPOLA APRN-WEB CONTENT PRODUCER-C Unavailable Unava ilable KOPIDLANSKY, Mary Ann COPPOLA APRN-WEB CONTENT PRODUCER-C Unavailable Unava ilable KOPIDLANSKY, Mary Ann COPPOLA APRN-WEB CONTENT PRODUCER-C Unavailable Unava ilable KOPIDLANSKY, Mary Ann COPPOLA APRN-WEB CONTENT PRODUCER-C Unavailable Unava ilable KOPIDLANSKY, Mary Ann COPPOLA APRN-WEB CONTENT PRODUCER-C Unavailable Unava ilable KOPIDLANSKY, Mary Ann COPPOLA APRN-WEB CONTENT PRODUCER-C Unavailable Unava ilable KOPIDLANSKY, Mary Ann COPPOLA APRN-WEB CONTENT PRODUCER-C Unavailable Unava ilable KOPIDLANSKY, Mary Ann COPPOLA APRN-WEB CONTENT PRODUCER-C Unavailable Unava ilable KOPIDLANSKY, Mary Ann COPPOLA APRN-WEB CONTENT PRODUCER-C Unavailable Unava ilable KOPIDLANSKY, Mary Ann COPPOLA APRN-WEB CONTENT PRODUCER-C Unavailable Unava ilable KOPIDLANSKY, Mary Ann COPPOLA APRN-WEB CONTENT PRODUCER-C Unavailable Unava ilable KOPIDLANSKY, Mary Ann COPPOLA APRN-WEB CONTENT PRODUCER-C Unavailable Unava ilable KOPIDLANSKY, Mary Ann COPPOLA APRN-WEB CONTENT PRODUCER-C Unavailable Unava ilable KOPIDLANSKY, Mary Ann COPPOLA JAVA LEAD ENGINEER-WEB CONTENT PRODUCER-C Unavailable Unava ilable Recore, Zeynep Jesi WHNP Unavailable Unavailable Recore, Zeynep Jesi WHNP Unavailable Unavailable Recore, Zeynep Jesi WHNP Unavailable Unavailable Recore, Zeynep Jesi WHNP Unavailable Unavailable Recore, Zeynep Jesi WHNP Unavailable Unavailable Recore, Zeynep Jesi WHNP Unavailable Unavailable Recore, Zeynep Jesi WHNP Unavailable Unavailable Recore, Zeynep Jesi WHNP Unavailable Unavailable Recore, Zeynep Jesi WHNP Unavailable Unavailable Recore, Zeynep Jesi WHNP Unavailable Unavailable Recore, Zeynep Jesi WHNP Unavailable Unavailable Recore, Zeynep Jesi WHNP Unavailable Unavailable Recore, Zeynep Jesi WHNP Unavailable Unavailable Recore, Zeynep Jesi WHNP Unavailable Unavailable Recore, Zeynep Jesi WHNP Unavailable Unavailable Recore, Zeynep Jesi WHNP Unavailable Unavailable Recore, Zeynep Jesi WHNP Unavailable Unavailable Recore, Zeynep Jesi WHNP Unavailable Unavailable Recore, Zeynep Jesi WHNP Unavailable Unavailable Recore, Zeynep Jesi WHNP Unavailable Unavailable Recore, Zeynep Jesi WHNP Unavailable Unavailable Recore, Zeynep Jesi WHNP Unavailable Unavailable Recore, Zeynep Jesi WHNP Unavailable Unavailable Recore, Zeynep Jesi WHNP Unavailable Unavailable Recore, Zeynep Jesi WHNP Unavailable Unavailable Recore, Zeynep Jesi WHNP Unavailable Unavailable Recore, Zeynep Jesi WHNP Unavailable Unavailable Recore, Zeynep Jesi WHNP Unavailable Unavailable Recore, Zeynep Jesi WHNP Unavailable Unavailable Recore, Zeynep Jesi WHNP Unavailable Unavailable Recore, Zeynep Jesi WHNP Unavailable Unavailable Boaz Gambino PA-C Unavailable Unavailable Boaz Gambino PA-C Unavailable Unavailable Mya, T Naren MD Unavailable Unavailable Mya, T Naren MD Unavailable Unavailable Mya, T Naren MD Unavailable Unavailable Mya, T Naren MD Unavailable Unavailable Mya, T Naren MD Unavailable Unavailable Mya, T Naren MD Unavailable Unavailable Mya, T Naren MD Unavailable Unavailable Mya, T Naren MD Unavailable Unavailable Mya, T Naren MD Unavailable Unavailable Mya, T Naren MD Unavailable Unavailable Mya, T Naren MD Unavailable Unavailable Mya, T Naren MD Unavailable Unavailable Mya, T Naren MD Unavailable Unavailable Mya, T Naren MD Unavailable Unavailable Mya, T Naren MD Unavailable Unavailable Mya, T Naren MD Unavailable Unavailable Mya, T Naern MD Unavailable Unavailable Mya, T Naren MD Unavailable Unavailable Mya, T Naren MD Unavailable Unavailable Mya, T Naren MD Unavailable Unavailable Mya, T Naren MD Unavailable Unavailable Mya, T Naren MD Unavailable Unavailable AMADO TORO Unavailable Unavailable Romi TORO MD Unavailable Unavailable Romi TORO MD Unavailable Unavailable Romi TORO MD Unavailable Unavailable Romi TORO MD Unavailable Unavailable Romi TORO MD Unavailable Unavailable Romi TORO MD Unavailable Unavailable Romi TORO MD Unavailable Unavailable Romi TORO MD Unavailable Unavailable Romi TORO MD Unavailable Unavailable Romi TORO MD Unavailable Unavailable Romi TORO MD Unavailable Unavailable Romi TORO MD Unavailable Unavailable Romi TORO MD Unavailable Unavailable Romi TORO MD Unavailable Unavailable Romi TORO MD Unavailable Unavailable Romi TORO MD Unavailable Unavailable Romi TORO MD Unavailable Unavailable Romi TORO MD Unavailable Unavailable Romi TORO MD Unavailable Unavailable Romi TORO MD Unavailable Unavailable Romi TORO MD Unavailable Unavailable Romi TORO MD Unavailable Unavailable Romi TORO MD Unavailable Unavailable Romi TORO MD Unavailable Unavailable Romi TORO MD Unavailable Unavailable Romi TORO MD Unavailable Unavailable Romi TORO MD Unavailable Unavailable Romi TORO MD Unavailable Unavailable Romi TORO MD Unavailable Unavailable Romi TORO MD Unavailable Unavailable Romi TORO MD Unavailable Unavailable Romi TORO MD Unavailable Unavailable Romi TORO MD Unavailable Unavailable Romi TORO MD Unavailable Unavailable Romi TORO MD Unavailable Unavailable Romi TORO MD Unavailable Unavailable Romi TORO MD Unavailable Unavailable Romi TORO MD Unavailable Unavailable Romi TORO MD Unavailable Unavailable Romi TORO MD Unavailable Unavailable Romi TORO MD Unavailable Unavailable BRANDON, Srinivas HUA MD Unavailable Unavailable TAYLOR, Srinivas HUA MD Unavailable Unavailable TAYLOR, Srinivas JOSE MD Unavailable Unavailable TAYLOR, Srinivas JOSE MD Unavailable Unavailable TAYLOR, Srinivas JOSE MD Unavailable Unavailable TAYLOR, Srinivas JOSE MD Unavailable Unavailable TAYLOR, Srinivas JOSE MD Unavailable Unavailable TAYLOR, Srinivas JOSE MD Unavailable Unavailable TAYLOR, Srinivas JOSE MD Unavailable Unavailable TAYLOR, Srinivas JOSE MD Unavailable Unavailable TAYLOR, A JOSE MD Unavailable Unavailable TAYLOR, A JOSE MD Unavailable Unavailable TAYLOR, A JOSE MD Unavailable Unavailable TAYLOR, A JOSE MD Unavailable Unavailable TAYLOR, A JOSE MD Unavailable Unavailable TAYLOR, A JOSE MD Unavailable Unavailable TAYLOR, A JOSE MD Unavailable Unavailable TAYLOR, Srinivas JOSE MD Unavailable Unavailable TAYLOR, A JOSE MD Unavailable Unavailable TAYLOR, A JOSE MD Unavailable Unavailable TAYLOR, A JOSE MD Unavailable Unavailable TAYLOR, A JOSE MD Unavailable Unavailable TAYLOR, A JOSE MD Unavailable Unavailable TAYLOR, A JOSE MD Unavailable Unavailable TAYLOR, A JOSE MD Unavailable Unavailable TAYLOR, A JOSE MD Unavailable Unavailable TAYLOR, A JOSE MD Unavailable Unavailable TAYLOR, A JOSE MD Unavailable Unavailable TAYLOR, A JOSE MD Unavailable Unavailable TAYLOR, A JOSE MD Unavailable Unavailable Re-disclosure Warning The records that you are about to access may contain information from federally-assisted alcohol or drug abuse programs. If such information is present, then the following federally mandated warning applies: This information has been disclosed to you from records protected by federal confidentiality rules (42 CFR part 2). The federal rules prohibit you from making any further disclosure of this information unless further disclosure is expressly permitted by the written consent of the person to whom it pertains or as otherwise permitted by 42 CFR part 2. A general authorization for the release of medical or other information is NOT sufficient for this purpose. The Federal rules restrict any use of the information to criminally investigate or prosecute any alcohol or drug abuse patient.The records that you are about to access may contain highly sensitive health information, the redisclosure of which is protected by Article 27-F of the [facility] Public Health law. If you continue you may have access to information: Regarding HIV / AIDS; Provided by facilities licensed or operated by the [facility] Office of Mental Health; or Provided by the [facility] Office for People With Developmental Disabilities. If such information is present, then the following [facility] mandated warning applies: This information has been disclosed to you from confidential records which are protected by state law. State law prohibits you from making any further disclosure of this information without the specific written consent of the person to whom it pertains, or as otherwise permitted by law. Any unauthorized further disclosure in violation of state law may result in a fine or long-term sentence or both. A general authorization for the release of medical or other information is NOT sufficient authorization for further disc losure. Allergies and Adverse Reactions Type Description Substance Reaction Status Data Source(s ) Propensity to adverse reactions NO ALLERGIES ON FILE NO ALLERGIES ON FILE [facility] Propensity to adverse reactions NO KNOWN ALLERGIES NO KNOWN ALLERGIES [facility] Environmental Allergy BEE STINGS BEE STINGS ANGIOEDEMA SV [facility] NKDA [facility] Family History Family Member Name Family Member Gender Family Member Status Date o f Status Description Data Source(s) Unknown Condition [facility] Unknown Condition [facility] Unknown Condition [facility] Unknown Condition [facility] Unknown Condition [facility] Unknown Condition [facility] Unknown Condition [facility] Unknown Condition [facility] Unknown Condition [facility] Unknown Condition [facility] Unknown Condition [facility] Unknown Condition [facility] Unknown Condition [facility] Unknown Condition [facility] Unknown Condition [facility] Unknown Condition [facility] Unknown Condition [facility] Unknown [facility] Unknown Condition [facility] Unknown Condition [facility] Unknown Condition [facility] Unknown Condition [facility] Unknown Condition [facility] Unknown Condition [facility] Encounters Encounter Providers Location Date Indications Data Source(s ) Unknown [address] [place] [id number] 05/10/2021 12:00:00 AM EDT eCW1 ([facility]) Outpatient [address] [place] [phone] 05/06/2021 12:00:00 AM EDT eCW1 ([facility]) Unknown [address] [place] [phone] 05/06/2021 12:00:00 AM EDT eCW1 ([facility]) Outpatient Attender: Zeynep YEUNG 021 07:19:00 AM EDT N28.89,Z01.818,PRE OP [facility] N28.89,Z01.818,PRE OP Outpatient [address] [place] [phone] 04/04/2021 12:00:00 AM EDT eCW1 ([facility]) Unknown [address] [place] [id number] 03/19/2021 12:00:00 AM EDT eCW1 ([facility]) RADIATION/ON Attender: Naren Roque MDReferrer: AMADO TORO 5F-RO 03/13/2021 02:31:28 PM EDT [facility] (Trus Bx1) Urology [address] [place] [address] 03/05/2021 12:00:00 AM EDT eCW1 ([facility]) Outpatient Attender: Naren Roque MD 5F-RO 02/25/2021 09:26:09 AM EDT [facility] Admission cancelled. Disregard status an d admitted date. [place] [address] [facility] [address] 02/22/2021 12:00:00 AM EDT eCW1 ([facility]) [place] [address] [facility] [address] 02/20/2021 12:00:00 AM EDT eCW1 ([facility]) Outpatient Attender: AMADO TORO MD 02/13/2021 08 :35:00 AM EDT PROSTATE CANCER,C61 [facility] PROSTATE CANCER,C61 Outpatient [address] [facility] [address] 02/04/2021 12:00:00 AM EDT eCW1 ([facility]) Emergency Attender: JOSE TAYLOR MD 01/04 10:59:00 AM EDT - 01/26/2021 01:02:00 PM EDT CATHETER PLUGGED [facility] CATHETER PLUGGED Patient discharged. Emergency Attender: JOSE TAYLOR MD 01/04 02:33:00 PM EDT - 01/25/2021 03:28:00 PM EDT CATHETAR PLUGGED [facility] CATHETAR PLUGGED Patient discharged. [place] [address] [facility] [address] 01/23/2021 12:00:00 AM EDT eCW1 ([facility]) (Trus Bx1) Urology [address] [place] [address] 01/22/2021 12:00:00 AM EDT eCW1 ([facility]) [place] [address] [facility] [address] 01/18/2021 12:00:00 AM EDT eCW1 ([facility]) Emergency Attender: DAVID WOODARD MD 01/17 01:41:00 PM EDT - 01/17/2021 02:55:00 PM EDT PLUGGED CATHETER [facility] PLUGGED CATHETER Patient discharged. Emergency Attender: JOSE TAYLOR MD 01/03 07:16:00 PM EDT - 01/16/2021 10:03:00 PM EDT SOB,CATHETER IS PLUGGED [facility] SOB,CATHETER IS PLUGGED Patient discharged. Emergency Attender: Donny Gambino PA-C 06/2021 07:33:00 PM EDT - 01/15/2021 12:48:00 AM EDT BLOOD IN CATHETER [facility] BLOOD IN CATHETER Patient discharged. Emergency Attender: ANAT KHAN APRN-FNP-CAttender: Tino Desir MDConsultant: ANAT JHA 01/13/20 02:13:00 PM EDT - 01/12/2021 07:11:00 PM EDT CATHETER FALLING OUT [facility] al CATHETER FALLING OUT Patient discharged. Emergency Attender: Donny Gambino PA-C 02/2021 05:05:00 AM EDT - 01/10/2021 07:23:00 AM EDT BACK PAIN, ABDOMINAL PAIN, TROUBLE URINATING [facility] BACK PAIN, ABDOMINAL PAIN, TROUBLE URINA TING Patient discharged. Emergency Attender: Tino Desir MD 01/2021 01:22:00 PM EDT - 01/09/2021 01:50:00 PM EDT URINARY RETENTION [facility] URINARY RETENTION Patient discharged. Medications Medication Brand Name Start Date Product Form Dose Route Admi nistrative Instructions Pharmacy Instructions Status Indications Reaction Description Data Source(s) Levofloxacin 500 MG Oral Tablet levoFLOXacin 500 MG levoFLOX acin 500 MG 05/10/2021 12:00:00 AM EDT 1.0 {tablet} active levoFLOXacin 500 MG eCW1 ([facility]) 500 mg 02/22/2021 12:00:00 AM EDT tablet 2 TAKE ONE TABLET BY MOUTH EVERY 12 HOURS *START THE EVENING PRIOR TO PROCEDURE TAKE ONE TABLET BY MOUTH EVERY 12 HOURS *START THE EVENING PRIOR TO PROCEDURE SOLD: 02/25/2021 [facility] 500 mg 01/21/2021 12:00:00 AM EDT tablet 2 TAKE ONE TABLET BY MOUTH THE NIGHT BEFORE BIOPSY AND 1 THE MORNING OF TAKE ONE TABLET BY MOUTH THE NIGHT BEFORE BIOPSY AND 1 THE MORNING OF SOLD: 01/21/2021 [facility] Sodium Phosphate, Dibasic 59.3 MG/ML / S odium Phosphate, Monobasic 161 MG/ML Enema [facility] Enema 7-19 GM/118ML Fleet Enema 7-19 GM/118ML 01/18/2021 12:00:00 AM EDT active Fleet Enema 7-19 GM/118ML eCW1 ([facility]) Sodium Phosphate, Dibasic 59.3 MG/ML / S odium Phosphate, Monobasic 161 MG/ML Enema Fleet Enema 7-19 GM/118ML Fleet Enema 7-19 GM/118ML 01/18/2021 12:00:00 AM EDT suspended Fleet Enema 7- 19 GM/118ML eCW1 ([facility]) Ciprofloxacin 500 MG Oral Tablet [Cipro] Cipro 500 MG Cipro 500 MG 01/18/2021 12:00:00 AM EDT 1.0 {tablet} active Ci pro 500 MG eCW1 ([facility]) Ciprofloxacin 500 MG Oral Tablet [Cipro] Cipro 500 MG Cipro 500 MG 01/18/2021 12:00:00 AM EDT 1.0 {tablet} active eCW1 ([facility]) Ciprofloxacin 500 MG Oral Tablet [Cipro] Cipro 500 MG Cipro 500 MG 01/18/2021 12:00:00 AM EDT 1.0 {tablet} active Ci pro 500 MG eCW1 ([facility]) Ciprofloxacin 500 MG Oral Tablet [Cipro] Cipro 500 MG Cipro 500 MG 01/18/2021 12:00:00 AM EDT 1.0 {tablet} active Ci pro 500 MG eCW1 ([facility]) Ciprofloxacin 500 MG Oral Tablet [Cipro] Cipro 500 MG Cipro 500 MG 01/18/2021 12:00:00 AM EDT 1.0 {tablet} active Ci pro 500 MG eCW1 ([facility]) Ciprofloxacin 500 MG Oral Tablet [Cipro] Cipro 500 MG Cipro 500 MG 01/18/2021 12:00:00 AM EDT 1.0 {tablet} suspended Cipro 500 MG eCW1 ([facility]) Sodium Phosphate, Dibasic 59.3 MG/ML / S odium Phosphate, Monobasic 161 MG/ML Enema Fleet Enema 7-19 GM/118ML Fleet Enema 7-19 GM/118ML 01/18/2021 12:00:00 AM EDT active Fleet Enema 7-19 GM/118ML eCW1 ([facility]) Sodium Phosphate, Dibasic 59.3 MG/ML / S odium Phosphate, Monobasic 161 MG/ML Enema Fleet Enema 7-19 GM/118ML Fleet Enema 7-19 GM/118ML 01/18/2021 12:00:00 AM EDT active Fleet Enema 7-19 GM/118ML eCW1 ([facility]) Sodium Phosphate, Dibasic 59.3 MG/ML / S odium Phosphate, Monobasic 161 MG/ML Enema Fleet Enema 7-19 GM/118ML Fleet Enema 7-19 GM/118ML 01/18/2021 12:00:00 AM EDT active Fleet Enema 7-19 GM/118ML eCW1 ([facility]) Ciprofloxacin 500 MG Oral Tablet [Cipro] Cipro 500 MG Cipro 500 MG 01/18/2021 12:00:00 AM EDT 1.0 {tablet} suspended Cipro 500 MG eCW1 ([facility]) Sodium Phosphate, Dibasic 59.3 MG/ML / S odium Phosphate, Monobasic 161 MG/ML Enema Fleet Enema 7-19 GM/118ML Fleet Enema 7-19 GM/118ML 01/18/2021 12:00:00 AM EDT active Fleet Enema 7-19 GM/118ML eCW1 ([facility]) Sodium Phosphate, Dibasic 59.3 MG/ML / S odium Phosphate, Monobasic 161 MG/ML Enema Fleet Enema 7-19 GM/118ML Fleet Enema 7-19 GM/118ML 01/18/2021 12:00:00 AM EDT active Fleet Enema 7-19 GM/118ML eCW1 ([facility]) Sodium Phosphate, Dibasic 59.3 MG/ML / S odium Phosphate, Monobasic 161 MG/ML Enema Fleet Enema 7-19 GM/118ML Fleet Enema 7-19 GM/118ML 01/18/2021 12:00:00 AM EDT active Fleet Enema 7-19 GM/118ML eCW1 ([facility]) Sodium Phosphate, Dibasic 59.3 MG/ML / S odium Phosphate, Monobasic 161 MG/ML Enema Fleet Enema 7-19 GM/118ML Fleet Enema 7-19 GM/118ML 01/18/2021 12:00:00 AM EDT active eCW1 ([facility]) Ciprofloxacin 500 MG Oral Tablet [Cipro] Cipro 500 MG Cipro 500 MG 01/18/2021 12:00:00 AM EDT 1.0 {tablet} active Ci pro 500 MG eCW1 ([facility]) Sodium Phosphate, Dibasic 59.3 MG/ML / S odium Phosphate, Monobasic 161 MG/ML Enema Fleet Enema 7-19 GM/118ML Fleet Enema 7-19 GM/118ML 01/18/2021 12:00:00 AM EDT active Fleet Enema 7-19 GM/118ML eCW1 ([facility]) Ciprofloxacin 500 MG Oral Tablet [Cipro] Cipro 500 MG Cipro 500 MG 01/18/2021 12:00:00 AM EDT 1.0 {tablet} suspended Cipro 500 MG eCW1 ([facility]) Ciprofloxacin 500 MG Oral Tablet [Cipro] Cipro 500 MG Cipro 500 MG 01/18/2021 12:00:00 AM EDT 1.0 {tablet} active Ci pro 500 MG eCW1 ([facility]) Ciprofloxacin 500 MG Oral Tablet [Cipro] Cipro 500 MG Cipro 500 MG 01/18/2021 12:00:00 AM EDT 1.0 {tablet} active Ci pro 500 MG eCW1 ([facility]) Sodium Phosphate, Dibasic 59.3 MG/ML / S odium Phosphate, Monobasic 161 MG/ML Enema Fleet Enema 7-19 GM/118ML Fleet Enema 7-19 GM/118ML 01/18/2021 12:00:00 AM EDT suspended Fleet Enema 7- 19 GM/118ML eCW1 ([facility]) Ciprofloxacin 500 MG Oral Tablet [Cipro] Cipro 500 MG Cipro 500 MG 01/18/2021 12:00:00 AM EDT 1.0 {tablet} active Ci pro 500 MG eCW1 ([facility]) Sodium Phosphate, Dibasic 59.3 MG/ML / S odium Phosphate, Monobasic 161 MG/ML Enema Fleet Enema 7-19 GM/118ML Fleet Enema 7-19 GM/118ML 01/18/2021 12:00:00 AM EDT suspended Fleet Enema 7- 19 GM/118ML eCW1 ([facility]) Tamsulosin hydrochloride 0.4 MG Oral Capsule Tamsulosi n (Flomax) 0.4 mg capsule Tamsulosin (Flomax) 0.4 mg capsule 01/15/2021 12:10:51 AM EDT 0.4 MG active [facility] 0.4 mg 01/15/2021 12:00:00 AM EDT capsule 10 TAKE ONE CAPSULE BY MOUTH EVERY DAY TAKE ONE CAPSULE BY MOUTH EVERY DAY SOLD: 01/17/2021 [facility] Tamsulosin hydrochloride 0.4 MG Oral Cap jonny tamsulosin (FLOMAX) 0.4 mg 24 hr capsule tamsulosin (FLOMAX) 0.4 mg 24 hr capsule 01/15/2021 12:00:00 AM EDT 0.4 mg oral active Take 0.4 mg by mouth 1 ( one) time each day. [place] [facility] 01/13/2021 12:00:00 AM EDT tablet 20 TAKE ONE TABLET BY MOUTH TWICE A DAY TAKE ONE TABLET BY MOUTH TWICE A DAY SOLD: 01/13/2021 [facility] Bacillus Coagulans (Probiotic (B. Coagul ans)) 10 billion cell capsule,delayed release(DR/EC) 01/12/2021 06:57:20 PM EDT 1 CELL a ctive [facility] Ciprofloxacin 500 MG Oral Tablet Ciprofloxacin Hcl (Ci pro) 500 mg tablet Ciprofloxacin Hcl (Cipro) 500 mg tablet 01/12/2021 06:56:59 PM EDT 50 0 MG active [facility] Sulfamethoxazole 800 MG / Trimethoprim 1 60 MG Oral Tablet Sulfamethoxazole- Trimethoprim (Bactrim Ds) 800-160 mg tablet Sulfamethoxazole-Trimethoprim (Bactrim Ds) 800-160 mg tablet 01/10/2021 07:10:56 AM EDT 1 TAB completed [facility] 800-160 mg 01/10/2021 12:00:00 AM EDT tablet 7 TAKE ONE TABLET BY MOUTH TWICE A DAY TAKE ONE TABLET BY MOUTH TWICE A DAY SOLD: 01/11/2021 [facility] Lisinopril 5 MG Oral Tablet Lisinopril 01/02/2014 12:38:00 PM EDT 5 MG completed [facility] Albuterol Sulfate (Proair Hfa) 8.5 GM HFA aerosol inhaler 12/27/2013 06:34:00 PM EDT 2 PUFFS completed [facility] Acetaminophen 325 MG / Oxycodone Hydroch loride 7.5 MG Oral Tablet Oxycodone- Acetaminophen (Percocet 7.5-325 Mg Tablet) 1 EACH tablet Oxycodone-Acetaminophen (Percocet 7.5-325 Mg Tablet) 1 EACH tablet 12/09/2013 08:40:00 AM EDT TAB completed [facility] Pregabalin (Lyrica) 50 MG capsule 12/09/2013 08:40:00 AM EDT 50 MG completed [facility] Aspirin 325 MG Oral Tablet Aspirin 12/05/2013 03:07:00 PM EDT 32 5 MG [facility] Fluticasone Propion-Salmeterol (Advair 2 50-50 Diskus) 1 EACH blister with device 10/28/2013 04:43:00 PM EDT 1 PUFFS completed [facility] Sertraline 50 MG Oral Tablet Sertraline (Zoloft) 50 MG tablet Sertraline (Zoloft) 50 MG tablet 10/27/2013 10:51:00 AM EDT 50 MG c ompleted [facility] Albuterol Sulfate (Proair Hfa) 8.5 GM HFA aerosol inhaler 09/06/2013 09:31:00 AM EST 2 PUFFS completed [facility] Niacin 08/08/2013 03:59:00 PM EST 3 TAB completed [facility] Insurance Providers Payer name Policy type / Coverage type Policy ID Covered green party ID Covered green party's relationship to galicia Policy Galicia Plan Information [employer] [id number] [employer] [id number] Self [id number] 0 'S ADMINISTRATION [id number] SP [id number] OPTUM [facility] [id number] SP [id number] MEDICARE [id number] SP [id number] [employer] Problems, Conditions, and Diagnoses Code Display Name Description Problem Type Effective Dates Data Source(s) Consult Consult Diagnosis 03/13/2021 02:31:28 PM ED T [facility] Prostate Cancer Prostate Cancer Diagnosis 03/13/2021 02:3 1:28 PM EDT [facility] N28.89 [id number] Other specified disorders of kidney and u reter Problem 04/22/2021 12:00:00 AM EDT eCW1 ([facility]) C61 Prostate cancer Prostate cancer Problem 02/04/2021 12:0 0:00 AM EDT eCW1 ([facility]) R97.20 Elevated PSA Elevated PSA Problem 01/22/2021 12:00:00 A M EDT eCW1 ([facility]) N28.89 Disorder of kidney and/or ureter Urinary retention due to benign prostatic hyperplasia Problem 01/18/2021 12:00:00 AM EDT eCW1 ([facility]) Surgeries/Procedures Procedure Description Date Indications Data Source(s) Med: Lidocaine Jelly 2% 6ml Intravesically (Glydo) 05/06/2021 12:00:00 AM EDT eCW1 ([facility]) Carbone Catheter Insertion 16F 05/06/2021 12:00:00 AM ED T eCW1 ([facility]) Med: Lidocaine Jelly 2% 6ml Intravesically (Glydo) 04/04/2021 12:00:00 AM EDT eCW1 ([facility]) Carbone Catheter Insertion 16F 04/04/2021 12:00:00 AM ED T eCW1 ([facility]) Med: Lidocaine Jelly 2% 6ml Intravesically (Glydo) 03/05/2021 12:00:00 AM EDT eCW1 ([facility]) Medication: 2% Lidocaine Dilutent 03/05/2021 12:00:00 AM EDT eCW1 ([facility]) Medication: Bupivacaine 0.25% Dilutent 30ml (Marcaine) 03/05/2021 12:00:00 AM EDT eCW1 ([facility]) Carbone Catheter Coude Insertion 16F 03/05/2021 12:00:00 AM EDT eCW1 ([facility]) Med: Lidocaine Jelly 2% 6ml Intravesically (Glydo) 02/04/2021 12:00:00 AM EDT eCW1 ([facility]) 02/04/2021 12:00:00 AM EDT e CW1 ([facility]) Urine Culture 01/25/2021 12:00:00 AM EDT [facility] Med: Lidocaine Jelly 2% 6ml Intravesically (Glydo) 01/22/2021 12:00:00 AM EDT eCW1 ([facility]) Medication: 2% Lidocaine Dilutent 01/22/2021 12:00:00 AM EDT eCW1 ([facility]) Medication: Bupivacaine 0.25% Dilutent 30ml (Marcaine) 01/22/2021 12:00:00 AM EDT eCW1 ([facility]) Carbone Catheter Insertion 18F 01/22/2021 12:00:00 AM ED T eCW1 ([facility]) Urine culture (procedure) 01/16/2021 12:00:00 AM EDT [facility] Urine culture (procedure) 01/14/2021 12:00:00 AM EDT [facility] Urine culture (procedure) 01/12/2021 12:00:00 AM [facility] Blood culture for bacteria, including anaerobic screen (proc edure) 01/12/2021 12:00:00 AM EDT [facility] Blood culture for bacteria, including anaerobic screen (proc edure) 01/12/2021 12:00:00 AM EDT [facility] Plain chest X-ray (procedure) 01/10/2021 05:40:00 AM E DT [facility] CT Abd/pel w/o contrast 01/10/2021 05:39:00 AM T [facility] Blood culture for bacteria, including anaerobic screen (proc edure) 01/10/2021 12:00:00 AM [facility] Results ID Date Data Source [id number] 04/30/2021 08:32:00 AM [facility] [address] [place] [id number] [phone] NAME SEX PT STATUS ACCOUNT NUMBER MCKINLEY KEN SR REG REF [id number] ORDERING PHYSICIAN LOCATION MEDICAL RECORD NO. Zeynep MENDIETA [facility] [id number] ATTENDING PHYSICIAN DATE OF DATE OF EXAM/TIME KARINE MONTES DE OCA 1950 04/30/21743 TYPE / EXAM Xray Chest 2 view PA/LAT REASON FOR EXAM URINARY RETENTION DUE TO PROSTATIC HYPERPLASIA, PRE OP CLINICAL HISTORY: [facility] URINARY RETENTION DUE TO PROSTATIC HYPERPLASIA, PRE OP TECHNIQUE: 2 view chest x-ray. COMPARISON: January 10, 2021.. FINDINGS: The lungs are well-inflated and clear. The pleural angles are sharp. Heart size is normal. Pulmonary vasculature is not increased. No significant bony abnormality is seen.. IMPRESSION: No active disease. Reported By Shahid Lazo MD on 04/30/21831 Signed By Shahid Lazo MD on 04/30/21832 Date Time CC: Karine Montes De Oca; Shahid Lazo M.D. Techn: FROSA Trans Dt/Tm: Trans by: DT Prt Dt/Tm: [id number]: Total DLP = 0.00 mGy-cm Fluoroscopy Time (in secs): Name Value Range Interpretation Code Description Data Martine rce(s) Supporting Document(s) ID Date Data Source [id number] 04/30/2021 07:40:00 AM EDT [facility] Name Value Range Interpretation Code Description Data Martine rce(s) Supporting Document(s) Leukocytes [#/volume] in Blood by Automated count 5.6 10*3/uL 4.45-10 .71 N [facility] Erythrocytes [#/volume] in Blood by Automated count 4.02 10*6/uL 4.3-6.1 Below low normal [facility] Hemoglobin [Moles/volume] in Blood 11.9 g/dL 13-18 Below low no rmal [facility] Hematocrit [Volume Fraction] of Blood by Automated count 36.3 % 42-52 Below low normal [facility] Erythrocyte mean corpuscular volume [Ent itic volume] in Cord blood by Automated count 90 fL 80-96 N [facility] ital Erythrocyte mean corpuscular hemoglobin [Entitic mass] by Au tomated count 30 pg 27-31 N [facility] Erythrocyte mean corpuscular hemoglobin concentration [Mass/volume] in Cord blood 33 g/dL 33-37 N [facility] ital Erythrocyte distribution width [Entitic volume] by Automated count 14 % 11-15 N [facility] Platelets [#/volume] in Blood by Automated count 241 10*3/uL 130-472 N [facility] Platelet mean volume [Entitic volume] in Blood 10.1 fL 9.1-13.1 N [facility] Neutrophils/100 leukocytes in Blood by Automated count 60.4 % 41- 77 N [facility] Neutrophils [#/volume] in Blood by Automated count 3.4 U 1.7-7.6 N [facility] Lymphocytes/100 leukocytes in Blood by Automated count 25.9 % 14- 46 N [facility] Lymphocytes [#/volume] in Blood by Automated count 1.4 U 0.6-4.6 N [facility] Monocytes/100 leukocytes in Blood by Automated count 9.2 % 4-12 N [facility] Monocytes [#/volume] in Blood by Automated count 0.5 U 0.2-1.2 N [facility] Eosinophils/100 leukocytes in Blood by Automated count 3.6 % 0-7 N [facility] Eosinophils [#/volume] in Blood by Automated count 0.2 U 0.0-0.5 N [facility] Basophils/100 leukocytes in Blood by Automated count 0.5 % 0.4-1 .3 N [facility] Basophils [#/volume] in Blood by Automated count 0.0 U 0.0-0.2 N [facility] NUCLEATED RED BLOOD CELL 0 % [facility] NUCLEATED RED BLOOD CELL# 0 U [facility] Immature granulocytes [Presence] in Blood by Automated count 0-2 N [facility] Immature granulocytes [#/volume] in Blood by Automated count 0.0 U 0-0.1 [facility] Manual Differential panel - Blood NO [facility] ID Date Data Source [id number] 04/30/2021 08:00:00 AM EDT [facility] Name Value Range Interpretation Code Description Data Martine rce(s) Supporting Document(s) Prothrombin Time (Patient) 10.7 s 9.6-12.3 N [facility] INR 1.0 0.9-1.1 [facility] THE INR IS OPERATIONALLY DEFINED FOR DIVINE SH PLASMA FROMPATIENTS STABILIZED ON ORAL ANTICOAGULANTS.ROUTINE ANTICOAGULANT THERAPY 2.0-3.0RECURRENT SYSTEMIC EMBOLISM/HEART VALVE REPLACEMENT 2.5-3.5 aPTT.lupus sensitive (LA screen) 27.1 s 22.7-31.6 N [facility] ID Date Data Source [id number] 04/30/2021 08:32:00 AM EDT [facility] Name Value Range Interpretation Code Description Data Martine rce(s) Supporting Document(s) Urea nitrogen [Mass/volume] in Serum or Plasma 14 mg/dL 9-23 N [facility] Sodium [Moles/volume] in Serum or Plasma 142 mmol/L 132-146 [facility] Potassium [Moles/volume] in Serum or Plasma 4.3 mmol/L 3.5-5.5 [facility] Chloride [Moles/volume] in Serum or Plasma 107 mmol/L 99-109 [facility] Carbon dioxide, total [Moles/volume] in Serum or Plasma 30 mmol/L 20 -31 N [facility] Anion gap in Serum or Plasma 9 mmol/L 8-16 N [facility] Glucose [Mass/volume] in Serum or Plasma 96 mg/dL 74-106 N [facility] Creatinine 1.1 mg/dL 0.5-1.1 [facility] Glomerular filtration rate/1.73 sq M.pre dicted [Volume Rate/Area] in Serum or Plasma Greater Than 60 ABOVE 60 [facility] Calcium [Mass/volume] in Serum or Plasma 9.8 mg/dL 8.5-10.1 N [facility] ID Date Data Source [id number] 03/15/2021 01:44:15 PM EDT [facility] Name Value Range Interpretation Code Description Data Martine rce(s) Supporting Document(s) Progress Notes [facility] KOVNOb7jOvMHYuWh42/BCJqtNUZqv7NtXIdgLEp3WMscWNBfF7ZyXWU4tA8fZYO5DHsXFoCeUhVkPSSj lbm TnMizHIpPdDRGmMggEJpVjUFqmNxwuaQVxXZ1CrLS5TSScO00yRTMfDUQwV5CeHKD8Dea+Hb1EVJFlgE BvTW2ZLnzZ8Cuwa9z40jmJ+x/6ftSuu9KvdQsyUsSG3mdWVQ7tQUp0+3F3phMLu4Y0XiZnb2Cn1+eUOb PbUv5WlBnalfB0jpURshgJW7cFD045C/7vx5jPITSF +39TnJConJqce9/nNWeJpk7k8tVcJIZeJlQCjntH3UQyTa5g9hsHqAjDwpSnwfp4R3vtcH/5NpkwyuU5 HYJfh+dwDHdBMYd3iuOAM55QC44YwEyn9oLIwr/G1V1ddlZDJgn0WUx8Ew1wXQfu4Igg3suc6kAmXl1I JSuXYVStzqpNpZxYV+UyindBA+F+hIDuqyVPXGdfQx [file] AgICAgICAgICAgICAgICAgICAgICAgICAgICAgICAgICAgICAgICAgICAgICAgICAgICAgICAgICAgIC IsJQQxODWpMKJgZDWkBIGuKQTcKFDrGBXyORWtJKExYRGzGO8YQOCpRZFkNTDzZUXkMQZxLFXaITOzUY AgICAgICAgICAgICAgICAgICAgICAgICAgICAgICAg KEJnOADtHPGjLOGqZQVsEAWdMFQmMMHcPOHlJGWwCQBgIQKnFAViLJToEQHfGK8JRJIiYIWyHWDlDZTs ICAgICAgICAgICAgICAgICAgICAgICAgICAgICAgICAgICAgICAgICAgICAgICAgICAgICAgICAgICAg JGIfHGNwCREeAJWoOSJxFQLkXGWqENRkSDTjAS3JGZ AgICAgICAgICAgICAgICAgICAgICAgICAgICAgICAgICAgICAgICAgICAgICAgICAgICAgICAgICAgIC WqCCIxUMKlKQKwLTBrLBSbIMTqAVRdRYEoUBSiSCTtTZPcMHKiFX1VZQDzFVXlQCXbAYZeHVWkVYOaBV AgICAgICAgICAgICAgICAgICAgICAgICAgICAgICAg ELYcAOTwMVCyMHDcBHIdDFYvVWYgTWKjBCSqGXZxGEEyHZJkXBMdLAMjTMSgTSCfEO8IHVIiXWGmCSDn ICAgICAgICAgICAgICAgICAgICAgICAgICAgICAgICAgICAgICAgICAgICAgICAgICAgICAgICAgICAg ICAgICAgICAgICAgICAgICAgICAgICAgICAgICAgIA 0KICAgICAgICAgICAgICAgICAgICAgICAgICAgICAgICAgICAgICAgICAgICAgICAgICAgICAgICAgIC YdSOFhTXNaJXYpTCDdRKGiYXWaKABrMYMeCOQcRYZgRTOeLPNiAYIvHY8ITQTcIFJbJPPaBGPjCKKpSJ AgICAgICAgICAgICAgICAgICAgICAgICAgICAgICAg XRObJBOjCYAaMRXmOXOrKZNxLWPtTLPkXWIeZQIrGDInKXOqJCTxKFVsFQGbRHDeKNKsFJ3TQLTyYWBs ICAgICAgICAgICAgICAgICAgICAgICAgICAgICAgICAgICAgICAgICAgICAgICAgICAgICAgICAgICAg ICAgICAgICAgICAgICAgICAgICAgICAgICAgICAgIC DnNS0QYQQpNZNdXXBiNEInDQSvRQAbDBPtCCDhDRMhSKSzPFJzWTOlEGCkAFWtMVQkAAVnWUIlAESvZD DnQSVgDBBcYQCbFPVhVJYxXUGjSDJiSIYbEJUcGBNnHACrRJQqVPUwBLChLZ6LMU18zNLkg8X4PFVhDJ 0ndyc/Zi9GKBwrqcKibUUtOV4AQpRiZL3fqb4LCvUz ZX1fob7KDQdQCzXcR4N8xZAiGGUgQDXKLkIaZ38gHPqcZr73GVjyUREyYfHdVSp5Hq2XMlGqX6ffFSKj LtS2YWUtEoO7NZFhZxGeTSPmNESjIDCoSLJREHZ7EQIaLkDnUeIrSTSvRQ6ZQDMqT022esJwZn7JFz3O JsCiJR5jlb6ZBHfmENGiUbsOLzy6PVrzFG4ZuNTgyM R8SFPgWNYUHwCwR0iyb0MePZCqQUHLOXenEY9Rx9MmaHVhCCz+Lj0EPM2hp7WjSLh7FTWbOH7fne6QSF dDYeRqH5VtjZyhYCXvk3apZKXuZU5xnKHdAUX8XCemqb2sUWS5taFfOE7GCKG3BVxtRZ7cAXNfMKJrNr SlGCFLFZ2GIHEsNSKasCKpZSTzMRJEWR5WTCnnPKV0 IrrtmpQwhHTyRXbaNC1RFYDidwAwHJvoNCTMKEf+Sp7NVF8py4VkIWc8YBAdl6ClMPw3DL6NLUAaTTiz JTEzRX5gt5SwN6A8DiG0xECoN0vmccwkM4MefeImwsHwXDIkIROtER1NCK5VDS6AFKSrKTbfGW2TJTE8 JSg3PwT7GRzvKYIeJKUqON7eSIhvBU4LOTe8C0VrK3 RKWJCgBCCDACUglLW6GQUGNk7VF7MRUbtMVNHNDx5SUmDwJ2PQI3eBH50KIV6FJUZ+PiANCj4+DQplbm YzOsiWBiVnGNFoy7GbYWs5AK6CMXPuQQsnOE3FPKKyvT7dTBenBV4HLgW2PjIzOUQEMbLmM55baAAnYI h4X3PkMzJoPYNyQrhrZMXmVNinUzCzMADdStVbAJez ID4+ID4+GQnlMS3RCCokwiTyFCMrVt4VGBTqCMQsSJ6oOLJaMDObX1N4nAbdMGVFFjSdD5upjwcvPO8r BORtD513fPkevxQxOFU4QASkDh2SNDWmLQS7LTHevEDrYAicTNHZFYfjXP6SyQIsFXE4uW0bBXdfZRGf XFDvM9oOVgCtyHdcMV89jVspvzPwxDKtUPy+Pg0KZW 9uu2JhBZv0vjYsQKmfQFMeGZzeAXRdOUSrWDZuZXI4TOU3SNUGPvUiNPUwPDLzEGcdWXToPQNiip0UJM FwAWR4OER5OHIeSVFtYYLzXZhdXAIuMQDoBpFaNDVgBSQnGD0VQsDvAEAlQVYeJEizLYVdXGQxbx6HOL ZlZNWiZkY4VnOlOVDrADHxQRlbWWRvXYYjKWMcEEWd MOZnVZ2VSwXbITMiIRO2SLuhZERzEQAcig7IDPHrUIAaMUQlQLTtFCGuSIKeWOrkZDFcLEY6WgAcGVZk NILyKZ8EYoGrRWAeSNr2XFTwZSLqPFVuin2LXUCkUTQaGcKiNJPfUODgGOIyWKyrSABiGPC3IXNdWDOm MVMtJD3UGkOuYMUnIHDnKEgwEKMzTTFoip9ZQAQmZD QuZiY8BCLyRBEtZYLvIUuiMFQgZKKyKlF5KTHwYYXcEG9VVqXqRWKqBLO8XcIeFZXkUJQodf2JINBvNV XeBZNbFySjCSEpZIYjFBvtQHWvBYU6XYh6GWDjPULlFY4EPnBgJHOxBQDdCXbbHCDzODRrrp3XNMIfJT AxYcU9ZTCyUZEaNHMaQQzcFHOuBEA9CQN7KZBsWYTj GQ6ZRtEzATHxITf7LMGnXCVsMKQdlg4VXATcQVCxMgvcNZDpFTNiGYHkYCgjSYHjILEhLOf9EKIlJHWx GP0BJjNsPVCnMqB2UDZmGIHdZXNwol8RLECeGFFeQAJ2EETdDINoFAJnIMphYRDmHHCeIOT3ICTqNJJw TS1FSxPoNTLnCcOwGVSvWTPoYHXpiw4RJDNlFZVxNz ZeMGOfQMTpTVLnINqsRSPdPYWhLkI8OMDlWNUhVY8CTeYwITNvTrQeTZweXTOtFTAard9HWPXqKHMaMw EtQAGeUTFqMBCbNOtpPAXpBOCjPCT1UWYvBOBpUC1CQsUoXWPmTyY1MBnpROZqZOSbag2OISFsWSLxJJ D3JMSeJBPaILSoFUldRISkGWF5MEJ8WFWdICBtGU4A SpXkKEEjObXyEsYvHACyHEJylq1BLDRbJTQxQJe9GKDkUIMtMMHnZYsvAPBkAQM4HIQ1RAKvTRKdPD4W QaAzTTZzGzArJlzlFGOlBCEmrr9WPNAaLLD5YDG4YzRrHGBxXMVxKTmoRVEjLBJ3OYq9LNIrEXJdBP1B ViMsKQFuUEPlIUTgQUWyGIKedw2SLJEmNGD4UZGcUd ViMVFwEZLmZVehVOSsDNYgFFcxFXNgPRWnLB7OLrJmVYRxUPZ3MEwoOFInTODkub7XIFKzNMR7NGP2Zk XhPCAbJJJrBFfqZBGwJXQ9KBAgSLKhNANvKQ8RNdHbPMThPeIkZxBrUEFmDFKqbv8LNCFlUNQ8BNJdKx NyWTBmFPSySLfzAUReTBJsYqD2JXUgUWNmIV0RExZl SRvkGOUPEwg5QGkiE0b4BJH6Jp1PZ6Ibu3CmJQZrMEUPTOeaRM2aplOrRXNzMg9ZL2iCMdqgICXiTMA2 RcBaEuSmFbBvFSX2GHZjMsLtAMYgVSqtVP5sDLV6KCJ6AOFyXbCgZDQlNpUuMKo3ZFUoBQQvH1M0GZGk HbQmZU1AYy4AJqH9GOJ2qKMaVo2ZKwB2XmLWMdYnQL5UDAh= ID Date Data Source [id number] 03/13/2021 02:59:33 PM EDT [facility] Name Value Range Interpretation Code Description Data Martine rce(s) Supporting Document(s) Progress Notes [facility] LYNJMo3aKzWDTfIt51/VWBdsZQVrl1BwSUueWCu5STwtHDKaQ6NvXUP5tO8vTUU6FDiGLdNoOqPvJKB7 lbm [file] ICAgICAgICAgICAgICAgICAgICAgICAgICAgICAgIC EzPGPwCWGoEMBvGWQyPFEnFSEsNXMvPSNqYOTmABQwYOYjOPCbDEWpKRGoETWpXJ1YSUJvVMGzRDQwVL AgICAgICAgICAgICAgICAgICAgICAgICAgICAgICAgICAgICAgICAgICAgICAgICAgICAgICAgICAgIC CjYBYlBSGyKIBtCAHtVQPpBHNeUZOfYJLaYOHaNR8O ICAgICAgICAgICAgICAgICAgICAgICAgICAgICAgICAgICAgICAgICAgICAgICAgICAgICAgICAgICAg FTItLBLbOKSbAMPfRNAzNVGgTEFhUDUgSDGsWJBzCTYnGCCcXQBqIC8XCWIcZFDpRHWvAVXxJZDmNQBu ICAgICAgICAgICAgICAgICAgICAgICAgICAgICAgIC BcEAYiJWUhIXCcPOUhWPVhMGFeENEtHDKsLFJtTVIyIIZmJKQaWYYyZKQiYMMeZDTzNF2HYWZpXIPsOO AgICAgICAgICAgICAgICAgICAgICAgICAgICAgICAgICAgICAgICAgICAgICAgICAgICAgICAgICAgIC AgICAgICAgICAgICAgICAgICAgICAgICAgICAgICAg SN0PYIFdGWEiGZSaLMOyILYfXRZpRMUsKIBqULDdHGIfNCKtESPdUSDhLQKeNXQoIDHxMHKkYSNnIYFi UGClXLQdIDWcLPSbSLIbYWWdWADeAZXmAAMiVIQeWDJpXDEoFYWaRVHrKT8WHLSnUXDbBRGySKBjCOWy ICAgICAgICAgICAgICAgICAgICAgICAgICAgICAgIC MxLGBiHQUwZWLpUPCkYUNtSXYaHSBdRNBhNCXiOLVdCTMdKRIaUSGrWGAsHVUeFYMlCSPvVS6BHYCyFN AgICAgICAgICAgICAgICAgICAgICAgICAgICAgICAgICAgICAgICAgICAgICAgICAgICAgICAgICAgIC AgICAgICAgICAgICAgICAgICAgICAgICAgICAgICAg YPAoNF8GYCQkCGIdCWOmEGAbEGBxTPHzQRNpTGOoZEUeYKHqFALxJKHaWEBsEMGoACQuGAUpWPYxINOr DVCkRVMiUPBsKLUdGCTtQCUuIALbOCYjTFWeAGXdAJGuGQNoJAHnTPLnWMCjDY5XVRQkLLBeWZJfWFEz ICAgICAgICAgICAgICAgICAgICAgICAgICAgICAgIC ShTCXmBRHpMBPmRIQmBOLuPOSjDMScELKiAMHuWFJpRWXgKLKhTMTqZAFjJTMqPKRgRZCmUEKyET4BBD 95zPIcn0D2IGUbAQ6poal/Qu6XOIwxiaKatUJxBJ4FFyDdCI7qfd5NGkHvFV8xhx8STIzUEaXbP5C8wM RbZTEpLQAXAbSzY73ySJrxLc40JSppMMMxFkOkTKu2 Gm1APhIvC9vgUYFvBqS4XKPxOjE6MXIqFyJeJQbxET5Xh3LubLPcISn+Dc2YUN5wn0JpUXlpBGIeQE6m we5EHLcVChTcM9VgqlP8WSU3DORbNq2VHQCmPZCniFByFfUdTEPGZzMhS9YcyU89BNHQDa1+DQplbmRv XloVNxO2BNKit2CoIQn9OK5TUXHoOBn2vBOaDXWtH6 Dgx1XuEa02ITOmAvxeR7Dls2a7nm8bGKviBW1mQCMCRRA8YYefZC7tOUAqZUWrQcPbIKVOAE7NZRUmKD FljEYaUDBiZAAOEV1ZAKjxDUS6YkubtpMxgBLvNXedHV6XRZXbtfMnEsOkIWMEGRe+Cu8KNR2no4LdAG drJiTgOY3ejw4VBEaFWoWlC8H1lADfX8J8WByeAn9T CDUfIYRkKmOjBHFHGVnzFR6RDB0jyeK6EE8UuIFmWXIiAFEgoTFjFTi7J29jvSPoQEauPZ2FICS+Hardy+ Oz9MZODtTFHsQQUsLkLkHUFUYkHoF9MgA5EVd0JaW9YaTX51eLvejeRsUFmaWL2UHC6jCKSdKTYKPK9V gJBsmS4csrBuEWTfBZBZXjFnS45bxDFfCUKtBLR0BA DyZi6FSWPqL1GtnyNdgKqvqzMpGOAbDYSSWW0URQiqgnGcvJWvjLdpCI58oElaHN5LLo4LJmBaCY4knt 9XxQAkXr6JSQLjMD8BIZAtIUMxQHBgIXF2CZYoFoGhETryYBSwZUEaCJN7HNMmTRAcYP9JBhPzKYLwIs f2XxsgOMDaHYUcqw3TUQXzTSP5SPY4SVDpEWHfIZVi SMegSGVkNJYuBSD3HUGlHNCsUM6BZfGgWMUkAUY6NEQaQSJjVYOsrl0KZYAbOXXrCcl3AFKqTNTrJVZq FGxmPSThSAW4QGGmLSJsMYXjDY8OWmPtGTUmKIL8OYXdNICuGBTebc1XLJUqFXWhDPYrLDQpTOAkTTEg AZotKCHcJMH8QHV2KGQrZTFiQM3GNjKwXRViQNU1ZV IwVOKmOIQtjo1JYHKrUMRpBhg9FSNuNCElTXGkTLbjLMOgROZ2NUC0KZDeEGJdIT3UZhKuTZEeJTyfUq GuORNhYJNfmp1BYWWpAULdPRK0CZNkDHHyMPUsDPgwEMDoKCW2FUi4YASiGFZtBH4DFlIdFYYaFdRoQN PjUJOnKEUzny0UURBfDIZpSQC7VDRcWVDfKRZiEZoo NDCsFRVzOPtfMFTyCNMlGK0TAeXqSCWtHuG4MpIjHHGiEKSnin9IKREvFWIlFYlhVTAxBBVpGKDvLAyw WSGuQNFtUVffENVtKMRyWJ1HZyWmLBPxVoC5WyOjZWInCBQidu0YRXVfABNgQtKaOKIiCFWqIHXaWTwt UQKmZLTdWIqgRGMhMFRfNV2RWkSzQSQgXrQuVfHpEI OgVRPwls9ITRPyFGYvFYWoQMGtGWInCKZcLVhwCZDmOAF4CMXqHWLqRZZsPW0ZQjLtLOYjDck1VxCbPD HqPQPivd1BAISuELBhJTY3TzSnOJOcRIPlMAnwGULnMRW0SyN4FYZrHRAgJH8XPrZvOVMvFws0FCraED QxSJUfgf9VHNGfGZTdAZr2FcFaELOiJFSqZMggBNNl UTA8EfUxYUTsFYQnTM5OXlHmFNEsYIF3LIRaKFJpHCPvit4XDVLyCNB7KLsqLcNbBIEpBDAwPLztAWDn OKHuQCf6OGHkAWWxGB7QBnPxOJwoNJUAOcp3WThqI9v9IUPaXH1MC9Rwj6GtQvbhPEXETYwjWN5nxsCi BIFwWp1WK4mOJzo6ZuVhLuK6XnUtHKHuHlrxUFI0Rl X8WQhjDQCrFVAyNU4kVTn6HMFmOuyrHTI1ETYzB5J4UMY6SWL4HKY6PaQgCcMeRlBdQS9WBm2LLbB6JJ H3hTHvUt5WTSXnPCgOSaShCR9THJi= ID Date Data Source [id number] 02/13/2021 01:24:00 PM EDT [facility] [address] [place] [address] [phone] NAME SEX PT STATUS ACCOUNT NUMBER MCKINLEY KEN SR Boaz REG REF [id number] ORDERING PHYSICIAN LOCATION MEDICAL RECORD NO. Amado Toro MD [place] [id number] ATTENDING PHYSICIAN DATE OF DATE OF EXAM/TIME Doctor Provided,No Family 1950 02/13/21899 TYPE / EXAM NM Bone Scan - Whole Body REASON FOR EXAM prostate cancer CLINICAL HISTORY: [facility] prostate cancer COMPARISON: CT scan abdomen and pelvis same day TECHNIQUE: 26.4mCi IV technetium 99m MDP. FINDINGS: There is some degenerative uptake within the shoulders and sternal clavicular joint spaces as well as within the feet. No localized uptake is seen suggest metastatic prostate carcinoma. Kidneys and urinary bladder are unremarkable. IMPRESSION: No evidence for metastatic prostate carcinoma. Reported By Abdifatah Duncan MD on 02/13/211323 Signed By Abdifatah Duncan MD on 02/13/211324 Date Time CC: Abdifatah Duncan M.D.; No Family PHYS Provided Techn: GRAMR Trans Dt/Tm: Trans by: DT Prt Dt/Tm: 1: Total DLP = 0.00 mGy-cm : Total Radiation Dose = 0.0000 mSv Lifetime Dose: 13.6200 mSv Name Value Range Interpretation Code Description Data Martine rce(s) Supporting Document(s) ID Date Data Source [id number] 02/13/2021 10:09:00 AM EDT [facility] [address] [facility] [address] [place], [place] [id number] [phone] NAME SEX PT STATUS ACCOUNT NUMBER MCKINLEY KEN M REG REF [id number] ORDERING PHYSICIAN LOCATION MEDICAL RECORD NO. Amado Toro MD NM [id number] ATTENDING PHYSICIAN DATE OF DATE OF EXAM/TIME Doctor Provided,No Family 1950 02/13/21954 TYPE / EXAM CT Abd/pel w/ contrast REASON FOR EXAM PROSTATE CANCER MCKINLEY KEN SR [id number] 1950 ADDENDUM Impression should have read prostatomegaly without evidence for metastatic prostate carcinoma. Addendum Reported By Abdifatah Duncan M.D. on 02/13/211324 Signed By Abdifatah Duncan M.D. on 02/13/211325 Trans Dt/Tm: Trans by: MEDQ [p pg] CLINICAL HISTORY: [facility] PROSTATE CANCER COMPARISON: January 10, 2021 TECHNIQUE: CT images through the abdomen and pelvis obtained with intravenous contrast. Dose reduction techniques were used including automated exposure control and adjustment of mA and/or KV according to patient size. RADIATION DOSE: DLP: 459 FINDINGS: LUNG BASES: COPD changes are identified. LIVER: Mild fatty infiltration is present. GALLBLADDER: CT appearance is unremarkable. SPLEEN: Unremarkable. PANCREAS: Normal CT appearance. ADRENALS: No nodules. KIDNEYS: No solid lesions. No calculi. No hydroureteronephrosis. BOWEL: Nondilated. MESENTERY/PERITONEUM: Unremarkable. NODES: Nondilated. PELVIS: Prostate gland shows moderate enlargement without discrete masses identified. Carbone catheter seen within urinary bladder which is decompressed.. BONE WINDOWS: Degenerative changes are identified in the lower lumbar and lumbosacral spine. No metastatic lesions are seen. VASCULATURE: Normal opacification is identified with mild aneurysmal change of the distal abdominalaorta which measures 3.3 cm. SOFT TISSUES: Unremarkable. IMPRESSION: Prostatomegaly. There is no evidence for anesthetic prostate carcinoma. Mild distal abdominal aortic aneurysm. Reported By Abdifatah Duncan MD on 02/13/21 1009 Signed By Abdifatah Duncan MD on 02/13/21 1012 Date Time CC: Abdifatah Duncan M.D.; No Family PHYS Provided Techn: KRIS Trans Dt/Tm: Trans by: DT Prt Dt/Tm: : Total DLP = 459.00 mGy-cm : Total Radiation Dose = 6.8850 mSv Lifetime Dose: 13.6200 mSv Name Value Range Interpretation Code Description Data Martine rce(s) Supporting Document(s) ID Date Data Source [id number] 02/13/2021 09:29:00 AM EDT [facility] Name Value Range Interpretation Code Description Data Martine rce(s) Supporting Document(s) Urea nitrogen [Mass/volume] in Serum or Plasma 19 mg/dL 9-23 [facility] Sodium [Moles/volume] in Serum or Plasma 140 mmol/L 132-146 [facility] Potassium [Moles/volume] in Serum or Plasma 4.8 mmol/L 3.5-5.5 [facility] Chloride [Moles/volume] in Serum or Plasma 108 mmol/L 99-109 [facility] Carbon dioxide, total [Moles/volume] in Serum or Plasma 30 mmol/L 20 -31 [facility] Anion gap in Serum or Plasma 7 mmol/L 8-16 Below low normal [facility] Glucose [Mass/volume] in Serum or Plasma 103 mg/dL 74-106 N [facility] Creatinine 1.2 mg/dL 0.5-1.1 Above high normal [facility] Glomerular filtration rate/1.73 sq M.pre dicted [Volume Rate/Area] in Serum or Plasma 60 ml/min ABOVE 60 [facility] Calcium [Mass/volume] in Serum or Plasma 9.5 mg/dL 8.5-10.1 [facility] ID Date Data Source [id number] 01/26/2021 12:46:00 PM EDT [facility] ED Physician Documentation NAME: MCKINLEY KEN : 1950 AGE: 70 MR#: [id number] SERVICE DATE: 01/26/[address]: Jose Taylor MD PRIMARY CARE DR: Karine Montes De Oca ROOM#: HPI (Adult, General) General Chief Complaint: Urogenital Time Seen by Provider: 01/26/21 11:12 History of Present Illness Narrative: Patient is here yet again. This is the third time I have seenhim. He has a chronic indwelling Carbone catheter and probably has a neoplastic lesion in his bladderthat is causing bleeding. He has seen urologist in [place] and they have done biopsies just recently. He does not have a formal diagnosis as of yet. I saw him in my last shift. He comes in here today but the difference is that his catheter which is translucent is now draining clear yellowurine his leg bag also has clear yellow urine in it there are no clots visible to me. As he has been in the emergency room the bag is filled with more clear urine and we did a bladder scan and there was no residual urine in his bladder. Is unclear exactly why he is here today. He has no pain fever just thinks that his Carbone catheter is not draining well. He is yet again here with his . Allergies/Home Meds Allergies Allergy/AdvReac Type Severity Reaction Status Date / Time BEE STINGS [BEE STING] Allergy Severe ANGIOEDEMA Verified 01/26/21 11:13 Home Medications Medication Instructions Recorded Confirmed Last Taken Type Nitroglycerin (Nitrek 0.4 mg TRANSDERMAL PRN #1 err.other 06/18/12 01/26/21 01/26/21 Rx (Nitroglycerin)) lancing device with lancets #1 pkg 02/08/13 01/26/21 01/26/21 Rx [Accu-Chek Multiclix Lancet] metformin 500 mg PO BID #60 tab 07/07/13 01/26/21 01/26/21 Rx omeprazole magnesium 1 tab PO DAILY #30 cap 07/07/13 01/26/21 01/26/21 Rx Blood Sugar Diagnostic (Test Strip) 1 strip IN DAILY #1 box 08/08/13 01/26/21 01/26/21 Rx omega-3 acid ethyl esters [Lovaza] 2 g PO BID #120 cap 08/08/13 01/26/21 01/26/21 Rx isosorbide mononitrate 20 mg PO TID #90 tab 10/27/13 01/26/21 01/26/21 History ferrous sulfate 324 mg PO BID #60 tab 11/25/13 01/26/21 01/26/21 History tiotropium bromide [Spiriva] 1 cap INHALATION DAILY #30 cap 11/25/13 01/26/21 01/26/21 History epinephrine [Epipen 2-Golden] 0.3 mg IM PRN #1 ea 01/12/14 01/26/21 Unknown History Bacillus coagulans [Probiotic (B. 1 cell PO BID #60 cap 01/12/21 01/26/21 01/26/21 Rx coagulans)] ciprofloxacin HCl [Cipro] 500 mg PO BID #20 tab 01/12/21 01/26/21 01/26/21 Rx tamsulosin [Flomax] 0.4 mg PO DAILY #10 cap 01/15/21 01/26/21 01/26/21 Rx PMH (from Triage) Patient Medical History PMH Reviewed/Updated as Needed: Yes PMH/PSH from Triage: Medical History (Updated 01/17/21 @ 14:40 by David Woodard) Chronic obstructive lung disease (Medical) Coronary Artery Disease (Medical 05/30/09) One srent Depressive disorder (Medical) Diabetes mellitus (Medical) Fat Lesion in liver (Medical) HX:MRSA (Medical) Hyperlipidemia (Medical) Insomnia (Medical) Iron deficiency anemia (Medical) Prostate Problem (Medical 01/2011) PSa 14.9 Severe low back pain (Medical) Tobacco use disorder, continuous (Medical) Surgical History (Updated 12/28/18 @ 11:59 by [email or web address] [place]) History of - surgery (Surgical) (L) repair Stented coronary artery (Surgical 05/30/09) one stent Hx Drug Resistant Infections Hx MRSA: (Methicillin- resistant Staphylococcus aureus): No Hx VRE (Vancomycin-resistant enterococci): No Hx C.Diff: No Hx CRKP: No Hx Other Resistant Infection?: No Isolation: Standard precautions Hx Recent Travel Out of the country within 10 days (where): No Hx Fever: No Hx Fever with a rash?: No Nurse screening for coronavirus: Recent Travel outside the No country (where) Has patient experienced No coronavirus symptoms Social History Does patient have suicidal/homicidal thoughts or ideation?: No Are you in a relationship with/Does anyone hit you, yell/swear at you, steal from you?: No Substance Use Second Hand Smoke Exposure: No Smoking Status: Current every day smoker Tobacco Use Tobacco Products:: Cigarettes 1/2 PPD Hx Chewing Tobacco Use: No Vaccination History Hx/Date of Tetanus, Diphtheria Vaccination: Yes Hx/Date of Influenza Vaccination: No Hx/Date of Pneumococcal Vaccination: No Immunizations Up to Date: Yes Immunizations Comment: covid vaccine received [facility] Medical History Chronic obstructive lung disease Coronary Artery Disease (05/30/09) Depressive disorder Diabetes mellitus Fat Lesion in liver HX:MRSA Hyperlipidemia Insomnia Iron deficiency anemia Prostate Problem ( 01/2011) Severe low back pain Tobacco use disorder, continuous Surgical History History of - surgery Stented coronary artery (05/30/09) Family History Mother Diabetes Hypertension Obesity Father No problems noted. Sister No problems noted. Social History Does the Patient have a Healthcare Proxy: Yes (-Lis Ken) Does Patient have a DNR?: No Does Patient have a Living Will?: No Hx Recent Travel (where): No Smoking Status: Current every day smoker ROS Review of Systems ROS Narrative: Problems with his catheter drain Constitutional: Denies fever Eyes: Denies vision change, eye discharge/drng or redness ENT: Denies mouth pain or mouth swelling Respiratory: Denies cough, sputum, SOB w/exertion rest, SOB with excertion, SOB at rest or wheezing Cardiovascular: Denies chest pain or palpitations Gastrointestinal: Reports No Symptoms/Complaints; Denies nausea, vomiting or abdominal pain Genitourinary-Male: Denies dysuria Musculoskeletal: Denies neck pain, shoulder pain or muscle weakness Skin/Breasts: Denies rash or lesions Neurologic: Denies weakness, numbness or headache Psychiatric: Reports No Symptoms/Complaints Endocrine: Reports No Symptoms/Complaints Hematological/Lymphatic: Reports No Symptoms/Complaints Allergic/Immunologic: Reports No Symptoms/Complaints Physical Exam General Physical Exam Narrative: Elderly white male here no acute distress Carbone catheter draining well to a leg bag. No abdominal pain no distention. Limitations: no limitations Head Head exam: Present atraumatic and normocephalic Eye Eye exam: Present normal apperance, PERRL and EOMI; Absent scleral icterus or conjunctival injection Pupils: Present normal accommodation ENT ENT exam: Present normal exam and normal orophraynx Neck Neck exam: Present normal inspection and full ROM; Absent tenderness or meningismus Respiratory Respiratory exam: Present normal lung sounds bilaterally; Absent respiratory distress, wheezes, rales, rhonchi or chest wall tenderness Cardiovascular Cardiovascular Exam: Present regular rate, normal rhythm, normal heart sounds and no murmur GI/Abdominal GI/Abdominal exam: Present Abd soft, bowel sounds present all quadrents, soft and normal bowel sounds; Absent distended or tenderness Rectal Rectal exam: Present deferred Extremities Exam Extremities exam: Present normal inspection, Full ROM without tenderness, capillary refill brisk, full ROM and capillary refill brisk; Absent tenderness, pedal edema or calf tenderness Back Exam Back exam: Present normal inspection and full ROM Neurological Exam Neurological exam: Present alert, oriented X3, CN II-XII int act and normal gait Psychiatric Psychiatric exam: Present normal affect Skin Skin exam: Present warm, dry and intact; Absent petechiae Vital Signs Vital Signs: Vital Signs 01/26/21 11:11 Temperature 98.0 F Pulse Rate 76 Respiratory Rate 18 Blood Pressure 154/71 O2 Sat by Pulse Oximetry 96 MDM (comprehensive) Medical Decision Making Free Text/Narative:: Not sure what motivated his appearance here today. His catheter is draining well and the bladder scan confirms that there is no residual urine within the bladder. He is reassured he can be discharged to follow-up with his urologist. Discharge Plan Admission/Discharge Dx Primary DC Diagnosis: Carbone catheter problem ED Provider: Jose Taylor ED Status: Physician Time Seen by Provider: 01/26/21 11:12 Triaged At: 01/26/21 11:00 Discharge Detail Disposition: Home, Self-Care Med Rec New Prescriptions: No Action ciprofloxacin HCl [Cipro] 500 mg tablet 500 mg PO BID Qty: 20 RF: 0 Probiotic (B. coagulans) 10 billion cell capsule,delayed release(DR/EC) 1 cell PO BID Qty: 60 RF: 0 tamsulosin [Flomax] 0.4 mg capsule 0.4 mg PO DAILY Qty: 10 RF: 0 Nitroglycerin (Nitrek (Nitroglycerin)) 0.4 mg Transdermal PRN Qty: 1 RF: 0 (DME) lancing device with lancets [Accu-Chek Multiclix Lancet] Kit 1 ea miscellaneous DAILY Qty: 1 RF: 5 metformin 500 mg tablet 500 mg PO BID Qty: 60 RF: 5 omeprazole magnesium 20 mg capsule,delayed release(DR/EC) 1 tab PO DAILY Qty: 30 RF: 5 Blood Sugar Diagnostic (Test Strip) 1 strip IN DAILY Qty: 1 RF: 5 omega-3 acid ethyl esters [Lovaza] 1 gram capsule 2 g PO BID Qty: 120 RF: 5 isosorbide mononitrate 20 MG tablet 20 mg PO TID Qty: 90 RF: 5 Spiriva with HandiHaler 18 MCG capsule, w/inhalation device 1 cap Inhalation DAILY Qty: 30 RF: 5 ferrous sulfate 324 MG tablet,delayed release (DR/EC) 324 mg PO BID Qty: 60 RF: 11 epinephrine [EpiPen] 0.3 MG/0.3 ML auto-injector 0.3 mg IM PRN Qty: 1 RF: 0 Follow Up Care/Instructions Diet/Activity/Wound Care..: Please continue to care for your catheter as you have been. Return to the emergency room if he gets plugged again. Keep in touch with your urologist and their follow-up plans. Return the emergency room for chills or fever. *Discharge Patient* Discharge Orders: Discharge Order (Routine); Ordered 01/26/21 Ordered By: Jose Taylor Interventions Interventions: ED Urogenital Last Done: 01/26/21 11:03 Report Signers: <Electronically signed by Jose Taylor MD> Jose Taylor MD 01/26/21 1250 Jose Taylor MD SIGNATURE DA Report Cosigners: D: BENJI 01/26/21 1246 T: BENJI 01/26/21 1246 CC: Karine Montes De Oca Name Value Range Interpretation Code Description Data Martine rce(s) Supporting Document(s) ID Date Data Source [id number] 01/25/2021 04:12:00 PM EDT [facility] Reason for ordering culture: Abnormal fi ndings UA@01/25/21 1543: UA W/ MICRO added. RFLXG = UMIC CIF.Method of Collection:: Voided @01/25/21 1612: Urine culture added. RFL XG = CULT.ADD.25,000 CFU/ML Staph spp, Strep spp, Corynebacterium sppProbable contaminants no senst done Reason for ordering culture: Abnormal fi ndings UA@01/25/21 1543: UA W/ MICRO added. RFLXG = UMIC CIF.Method of Collection:: Voided Name Value Range Interpretation Code Description Data Martine rce(s) Supporting Document(s) Color of Urine [facility] Appearance of Urine CLEAR Abnormal (applies to non-nu meric results) [facility] pH of Urine by Test strip 5.5 5-8 [facility] Specific gravity of Urine by Refractometry 1.003 1.005 -1.030 Abnormal (applies to non-numeric results) [facility] Leukocyte esterase [Presence] in Urine by Test strip NEGATIVE Abnormal (applies to non-numeric results) [facility] Culture has been added to this specimen per established criteria Nitrite [Presence] in Urine by Test strip NEGATIVE [facility] Protein [Presence] in Urine by Test strip NEGATIVE [facility] Glucose [Mass/volume] in Urine by Automated test strip NEGATIVE NEG ATIVE [facility] Ketones [Presence] in Urine by Test strip NEGATIVE [facility] Urobilinogen [Presence] in Urine 0.2-1 EU/dl [facility] Bilirubin.total [Presence] in Urine by Automated test strip NEGATIVE [facility] Erythrocytes [#/volume] in Urine by Test strip LARGE N EGATIVE Abnormal (applies to non-numeric results) [facility] @DO MICRO!!!!A Culture has been added to this specimen per established criteria URINE MICROSCOPIC? (CIF) Microscopic Added [facility] ID Date Data Source [id number] 01/27/2021 06:47:00 AM EDT [facility] Reason for ordering culture: Abnormal fi ndings UA@01/25/21 1543: UA W/ MICRO added. RFLXG = UMIC CIF.Method of Collection:: Voided @01/25/21 1612: Urine culture added. RFL XG = CULT.ADD.25,000 CFU/ML Staph spp, Strep spp, Corynebacterium sppProbable contaminants no senst done Reason for ordering culture: Abnormal fi ndings UA@01/25/21 1543: UA W/ MICRO added. RFLXG = UMIC CIF.Method of Collection:: Voided Name Value Range Interpretation Code Description Data Martine rce(s) Supporting Document(s) ID Date Data Source [id number] 01/25/2021 04:12:00 PM EDT [facility] Reason for ordering culture: Abnormal fi ndings UA@01/25/21 1543: UA W/ MICRO added. RFLXG = UMIC CIF.Method of Collection:: Voided @01/25/21 1612: Urine culture added. RFL XG = CULT.ADD.25,000 CFU/ML Staph spp, Strep spp, Corynebacterium sppProbable contaminants no senst done Reason for ordering culture: Abnormal fi ndings UA@01/25/21 1543: UA W/ MICRO added. RFLXG = UMIC CIF.Method of Collection:: Voided Name Value Range Interpretation Code Description Data Martine rce(s) Supporting Document(s) Erythrocytes [#/volume] in Urine by Manual count 31-40 /hpf 0-5 Above high normal [facility] Leukocytes [#/volume] in Urine by Manual count OCCASIONAL 0-5 [facility] Bacteria [Presence] in Urine sediment by Light microscopy NEGATIVE Above high normal [facility] ID Date Data Source [id number] 01/25/2021 03:21:00 PM EDT [facility] ED Physician Documentation NAME: MCKINLEY KEN SR : 1950 AGE: 70 MR#: [id number] SERVICE DATE: 01/25/[address]: Jose Taylor MD PRIMARY CARE DR: No Family PHYS Provided ROOM#: [facility] (Adult, General) General Chief Complaint: Urogenital Stated Complaint: CATHETAR PLUGGED Time Seen by Provider: 01/25/21 14:52 History of Present Illness Narrative: Patient is a 70-year-old white male known to me from previous ER visit who has a chronic indwelling Carbone catheter. Today just his last presentation he presentedwith a plugged Carbone catheter which was alleviated by irrigation by our nursing staff. He warns us not to try and change it because it took "an hour" for previous staff to replace the catheter. Since I have seen him he tells me he has seen the urologist and has had a cystoscopy. Although I donot have records he tells me that it is his prostate but that they "did take samples" from his bladder so the diagnosis of bladder cancer is probably not entirely off the table. He put about 5 to 600 cc of iced tea colored urine tinged with small amounts of bright red blood but eventually hisbladder was emptied. Allergies/Home Meds Allergies Allergy/AdvReac Type Severity Reaction Status Date / Time BEE STINGS [BEE STING] Allergy Severe ANGIOEDEMA Verified 01/25/21 15:00 Home Medications Medication Instructions Recorded Confirmed Last Taken Type Nitroglycerin (Nitrek 0.4 mg TRANSDERMAL PRN #1 err.other 06/18/12 Unknown Rx (Nitroglycerin)) lancing device with lancets #1 pkg 02/08/13 Unknown Rx [Accu-Chek Multiclix Lancet] metformin 500 mg PO BID #60 tab 07/07/13 Unknown Rx omeprazole magnesium 1 tab PO DAILY #30 cap 07/07/13 Unknown Rx Blood Bruno gar Diagnostic (Test Strip) 1 strip IN DAILY #1 box 08/08/13 Unknown Rx niacin 3 tab PO BID #180 tab 08/08/13 Unknown Rx omega-3 acid ethyl esters [Lovaza] 2 g PO BID #120 cap 08/08/13 Unknown Rx albuterol sulfate [Proair Hfa] 2 puff INHALATION Q4HPRN PRN #1 ea 09/06/13 Unknown History isosorbide mononitrate 20 mg PO TID #90 tab 10/27/13 Unknown History sertraline [Zoloft] 50 mg PO DAILY #30 tab 10/27/13 Unknown History fluticasone propion-salmeterol 1 puff INHALATION BID #1 ea 10/28/13 Unknown History [Advair 250-50 Diskus] ferrous sulfate 324 mg PO BID #60 tab 11/25/13 Unknown History tiotropium bromide [Spiriva] 1 cap INHALATION DAILY #30 cap 11/25/13 Unknown History aspirin 325 mg PO DAILY #30 tab 12/05/13 Unknown History oxycodone-acetaminophen [Percocet 1 - 2 tab PO Q6HPRN PRN #240 tab 12/09/13 Unknown History 7.5-325 Mg Tablet] pregabalin [Lyrica] 50 mg PO BID #60 err.none 12/09/13 Unknown History albuterol sulfate [Proair Hfa] 2 puff INHALATION Q4HPRN PRN #1 ea 12/27/13 Unknown History lisinopril 5 mg PO DAILY #30 tab 01/02/14 Unknown History epinephrine [Epipen 2-Golden] 0.3 mg IM PRN #1 ea 01/12/14 Unknown History sulfamethoxazole-trimethoprim 1 tab PO BID #7 tab 01/10/21 Unknown Rx [Bactrim DS] Bacillus coagulans [Probiotic (B. 1 cell PO BID #60 cap 01/12/21 Unknown Rx coagulan s)] ciprofloxacin HCl [Cipro] 500 mg PO BID #20 tab 01/12/21 Unknown Rx tamsulosin [Flomax] 0.4 mg PO DAILY #10 cap 01/15/21 Unknown Rx PMH (from Triage) Patient Medical History PMH Reviewed/Updated as Needed: Yes PMH/PSH from Triage: Medical History (Updated 01/17/21 @ 14:40 by David Woodard) Chronic obstructive lung disease (Medical) Coronary Artery Disease (Medical 05/30/09) One srent Depressive disorder (Medical) Diabetes mellitus (Medical) Fat Lesion in liver (Medical) HX:MRSA (Medical) Hyperlipidemia (Medical) Insomnia (Medical) Iron deficiency anemia (Medical) Prostate Problem (Medical 01/2011) PSa 14.9 Severe low back pain (Medical) Tobacco use disorder, continuous (Medical) Surgical History (Updated 12/28/18 @ 11:59 by [email or web address] [place]) History of - surgery (Surgical) (L) repair Stented coronary artery (Surgical 05/30/09) one stent Hx Drug Resistant Infections Hx MRSA: (Methicillin-resis tant Staphylococcus aureus): No Hx VRE (Vancomycin-resistant enterococci): No Hx C.Diff: No Hx CRKP: No Hx Other Resistant Infection?: No Isolation: Standard precautions Hx Recent Travel Out of the country within 10 days (where): No Hx Fever: No Hx Fever with a rash?: No Nurse screening for coronavirus: Recent Travel outside the No country (where) Has patient experienced No coronavirus symptoms Social History Does patient have suicidal/homicidal thoughts or ideation?: No Are you in a relationship with/Does anyone hit you, yell/swear at you, steal from you?: No Substance Use Smoking Status: Current every day smoker Tobacco Use Tobacco Products:: Cigarettes 1 Pack per day Hx Chewing Tobacco Use: No Vaccination History Hx/Date of Tetanus, Diphtheria Vaccination: Yes Hx/Date of Influenza Vaccination: No Hx/Date of Pneumococcal Vaccination: No Immunizations Up to Date: Yes PFSH Medical History Chronic obstructive lung disease Coronary Artery Disease (05/30/09) Depressive disorder Diabetes mellitus Fat Lesion in liver HX:MRSA Hyperlipidemia Insomnia Iron deficiency anemia Prostate Problem ( 01/2011) Severe low back pain Tobacco use disorder, continuous Surgical History History of - surgery Stented coronary artery (05/30/09) Family History Mother Diabetes Hypertension Obesity Father No problems noted. Sister No problems noted. Social History Does the Patient have a Healthcare Proxy: Yes (-Lis Ken) Does Patient have a DNR?: No Does Patient have a Living Will?: No Hx Recent Travel (where): No Smoking Status: Current every day smoker ROS Review of Systems ROS Narrative: Plugged catheter Constitutional: Denies fever Eyes: Denies vision change, eye discharge/drng or redness ENT: Denies mouth pain or mouth swelling Respiratory: Denies cough, sputum, SOB w/exertion rest, SOB with excertion, SOB at rest or wheezing Cardiovascular: Denies chest pain or palpitations Gastrointestinal: Reports No Symptoms/Complaints; Denies nausea, vomiting or abdominal pain Genitourinary- Male: Denies dysuria Musculoskeletal: Denies neck pain, shoulder pain or muscle weakness Skin/Breasts: Denies rash or lesions Neurologic: Denies weakness, numbness or headache Psychiatric: Reports No Symptoms/Complaints Endocrine: Reports No Symptoms/Complaints Hematological/Lymphatic: Reports No Symptoms/Complaints Allergic/Immunologic: Reports No Symptoms/Complaints Physical Exam General Physical Exam Narrative: Elderly gentleman no acute distress unlike last time. Carbone catheter was plugged and was irrigated by our nursing staff and is now draining. Limitations: no limitations Head Head exam: Present atraumatic and normocephalic Eye Eye exam: Present normal apperance, PERRL and EOMI; Absent scleral icterus or conjunctival injection Pupils: Present normal accommodation ENT ENT exam: Present normal exam and normal orophraynx Neck Neck exam: Present normal inspection and full ROM; Absent tenderness or meningismus Respiratory Respiratory exam: Present normal lung sounds bilaterally; Absent respiratory distress, wheezes, rales, rhonchi or chest wall tenderness Cardiovascular Cardiovascular Exam: Present regular rate, normal rhythm, normal heart sounds and no murmur GI/Abdominal GI/Abdominal exam: Present Abd soft, bowel sounds present all quadrents, soft, normal bowel sounds and other (Carbone has now drained to empty. Urine has cleared.); Absent distended or tenderness Rectal Rectal exam: Present deferred Extremities Exam Extremities exam: Present normal inspection, Full ROM without tenderness, capillary refill brisk, full ROM and capillary refill brisk; Absent tenderness, pedal edema or calf tenderness Back Exam Back exam: Present normal inspection and full ROM Neurological Exam Neurological exam: Present alert, oriented X3, CN II-XII intact and normal gait Psychiatric Psychiatric exam: Present normal affect Skin Skin exam: Present warm, dry and intact; Absent petechiae Vital Signs Vital Signs: Vital Signs 01/25/21 14:33 Temperature 98 F Pulse Rate 75 Respiratory Rate 16 Blood Pressure 152/79 O2 Sat by Pulse Oximetry 96 MDM (comprehensive) Medical Decision Making Free Text/Narative:: Unfortunately he may have more problems like this until his diagnosis has been definitively understood. This will be up to the urologist. He is advised to return every time this is plugged so that he can avoid infection and sepsis etc. His understands this completely. He can be discharged. Discharge Plan Admission/Discharge Dx Primary DC Diagnosis: Plugged Carbone catheter ED Provider: Jose Taylor ED Status: Registered Time Seen by Provider: 01/25/21 14:52 Triaged At: 01/25/21 14:33 Discharge Detail Disposition: Home, Self-Care Med Rec New Prescriptions: No Action sulfamethoxazole- trimethoprim [Bactrim DS] 800-160 mg tablet 1 tab PO BID Qty: 7 RF: 0 ciprofloxacin HCl [Cipro] 500 mg tablet 500 mg PO BID Qty: 20 RF: 0 Probiotic (B. coagulans) 10 billion cell capsule,delayed release(DR/EC) 1 cell PO BID Qty: 60 RF: 0 tamsulosin [Flomax] 0.4 mg capsule 0.4 mg PO DAILY Qty: 10 RF: 0 Nitroglycerin (Nitrek (Nitroglycerin)) 0.4 mg Transdermal PRN Qty: 1 RF: 0 (DME) lancing device with lancets [Accu-Chek Multiclix Lancet] Kit 1 ea miscellaneous DAILY Qty: 1 RF: 5 metformin 500 mg tablet 500 mg PO BID Qty: 60 RF: 5 omeprazole magnesium 20 mg capsule,delayed release(DR/EC) 1 tab PO DAILY Qty: 30 RF: 5 Blood Sugar Diagnostic (Test Strip) 1 strip IN DAILY Qty: 1 RF: 5 niacin 500 mg tablet 3 tab PO BID Qty: 180 RF: 5 omega-3 acid ethyl esters [Lovaza] 1 gram capsule 2 g PO BID Qty: 120 RF: 5 albuterol sulfate [ProAir HFA] 8.5 GM HFA aerosol inhaler 2 puff Inhalation Q4HPRN PRN (Reason: Shortness Of Breath) Qty: 1 RF: 5 isosorbide mononitrate 20 MG tablet 20 mg PO TID Qty: 90 RF: 5 sertraline [Zoloft] 50 MG tablet 50 mg PO DAILY Qty: 30 RF: 5 fluticasone propion-salmeterol [Advair Diskus] 1 EACH blister with device 1 puff Inhalation BID Qty: 1 RF: 5 Spiriva with HandiHaler 18 MCG capsule, w/inhalation device 1 cap Inhalation DAILY Qty: 30 RF: 5 ferrous sulfate 324 MG tablet,delayed release (DR/EC) 324 mg PO BID Qty: 60 RF: 11 aspirin 325 MG tablet 325 mg PO DAILY Qty: 30 RF: 5 oxycodone- acetaminophen [Percocet] 1 EACH tablet 1 - 2 tab PO Q6HPRN PRN (Reason: SO B) Qty: 240 RF: 0 pregabalin [Lyrica] 50 MG capsule 50 mg PO BID Qty: 60 RF: 0 albuterol sulfate [ProAir HFA] 8.5 GM HFA aerosol inhaler 2 puff Inhalation Q4HPRN PRN (Reason: SOB) Qty: 1 RF: 0 lisinopril 5 MG tablet 5 mg PO DAILY Qty: 30 RF: 0 epinephrine [EpiPen] 0.3 MG/0.3 ML auto-injector 0.3 mg IM PRN Qty: 1 RF: 0 Follow Up Care/Instructions Diet/Activity/Wound Care..: Continue to monitor your catheter output and return to the emergency room if it becomes plugged. Return the emergency room if you develop fever chills or concern. Continue follow-up with your urologist. *Discharge Patient* Discharge Orders: Discharge Order (Routine); Ordered 01/25/21 Ordered By: Jose Taylor Report Signers: <Electronically signed by Jose Taylor MD> Jose Taylor MD 01/25/21 1527 Jose Taylor MD SIGNATURE DA Report Cosigners: D: BENJI 01/25/21 1521 T: BENJI 01/25/21 1521 CC: No Family PHYS Provided Name Value Range Interpretation Code Description Data Martine rce(s) Supporting Document(s) ID Date Data Source [id number] 01/17/2021 02:37:00 PM EDT [facility] ED Physician Documentation NAME: MCKINLEY KEN SR : 1950 AGE: 70 MR#: [id number] SERVICE DATE: 01/17/[address]: David Woodard MD PRIMARY CARE DR: [place] [facility] ROOM#: HPI (Adult, General) General Chief Complaint: Urogenital Stated Complaint: PLUGGED CATHETER Time Seen by Provider: 01/17/21 14:04 Source: patient Exam Limitations: no limitations History of Present Illness Narrative: This is a 70-year-old gentleman who comes in complaining of having a feeling that his bladder is full and that the catheter that was placed several days ago is blocked. The patient is scheduled to see his urologist tomorrow but is conc erned that if the catheter is blocked he is not going to be a urinate throughout the course of the evening. Patient denies any fever or chills. Allergies/Home Meds Allergies Allergy/AdvReac Type Severity Reaction Status Date / Time BEE STINGS [BEE STING] Allergy Severe ANGIOEDEMA Verified 01/16/21 20:44 NKDA Allergy Unknown Uncoded 01/16/21 20:44 Home Medications Medication Instructions Recorded Confirmed Last Taken Type Nitroglycerin (Nitrek 0.4 mg TRANSDERMAL PRN #1 err.other 06/18/12 Unknown Rx (Nitroglycerin)) lancing device with lancets #1 pkg 02/08/13 Unknown Rx [Accu-Chek Multiclix Lancet] metformin 500 mg PO BID #60 tab 07/07/13 Unknown Rx omeprazole magnesium 1 tab PO DAILY #30 cap 07/07/13 Unknown Rx Blood Sugar Diagnostic (Test Strip) 1 strip IN DAILY #1 box 08/08/13 Unknown Rx niacin 3 tab PO BID #180 tab 08/08/13 Unknown Rx omega-3 acid ethyl esters [Lovaza] 2 g PO BID #120 cap 08/08/13 Unknown Rx albuterol sulfate [Proair Hfa] 2 puff INHALATION Q4HPRN PRN #1 ea 09/06/13 Unknown History isosorbide mononitrate 20 mg PO TID #90 tab 10/27/13 Unknown History sertraline [Zoloft] 50 mg PO DAILY #30 tab 10/27/13 Unknown History fluticasone propion-salmeterol 1 puff INHALATION BID #1 ea 10/28/13 Unknown History [Advair 250-50 Diskus] ferrous sulfate 324 mg PO BID #60 tab 11/25/13 Unknown History tiotropium bromide [Spiriva] 1 cap INHALATION DAILY #30 cap 11/25/13 Unknown History aspirin 325 mg PO DAILY #30 tab 12/05/13 Unknown History oxycodone-acetaminophen [Percocet 1 - 2 tab PO Q6HPRN PRN #240 tab 12/09/13 Unknown History 7.5-325 Mg Tablet] pregabalin [Lyrica] 50 mg PO BID #60 err.none 12/09/13 Unknown History albuterol sulfate [Proair Hfa] 2 puff INHALATION Q4HPRN PRN #1 ea 12/27/13 Unknown History lisinopril 5 mg PO DAILY #30 tab 01/02/14 Unknown History epinephrine [Epipen 2-Golden] 0.3 mg IM PRN #1 ea 01/12/14 Unknown History sulfamethoxazole-trimethoprim 1 tab PO BID #7 tab 01/10/21 Unknown Rx [Bactrim DS] Bacillus coagulans [Probiotic (B. 1 cell PO BID #60 cap 01/12/21 Unknown Rx coagulans)] ciprofloxacin HCl [Cipro] 500 mg PO BID #20 tab 01/12/21 Unknown Rx tamsulosin [Flomax] 0.4 mg PO DAILY #10 cap 01/15/21 Unknown Rx PMH (from Triage) Patient Medical History PMH Reviewed/Updated as Needed: Yes PMH/PSH from Triage: Medical History (Updated 01/12/21 @ 18:59 by Anat Jerome NP) Chronic obstructive lung disease (Medical) Coronary Artery Disease (Medical 05/30/09) One srent Depressive disorder (Medical) Diabetes mellitus (Medical) Fat Lesion in liver (Medical) HX:MRSA (Medical) Hyperlipidemia (Medical) Insomnia (Medical) Iron deficiency anemia (Medical) Prostate Problem (Medical 01/2011) PSa 14.9 Severe low back pain (Medical) Tobacco use disorder, continuous (Medical) Surgical History (Updated 12/28/18 @ 11:59 by [email or web address] [place]) History of - surgery (Surgical) (L) repair Stented coronary artery (Surgical 05/30/09) one stent Hx Drug Resistant Infections Hx MRSA: (Methicillin-resistant Staphylococcus aureus): No Hx VRE (Vancomycin-resistant enterococci): No Hx C.Diff: No Hx CRKP: No Hx Other Resistant Infection?: No Isolation: Standard precautions Hx Recent Travel Out of the country within 10 days (where): No Hx Fever: No Hx Fever with a rash?: No Nurse screening for coronavirus: Recent Travel outside the No country (where) Has patient experienced No coronavirus symptoms Social History Does patient have suicidal/homicidal thoughts or ideation?: No Are you in a relationship with/Does anyone hit you, yell/swear at you, steal from you?: No Substance Use Smoking Status: Current every day smoker Tobacco Use Hx Chewing Tobacco Use: No Vaccination History Hx/Date of Tetanus, Diphtheria Vaccination: Yes Hx/Date of Influenza Vaccination: No Hx/Date of Pneumococcal Vaccination: No Immunizations Up to Date: Yes PFSH Medical History Chronic obstructive lung disease Coronary Artery Disease (05/30/09) Depressive disorder Diabetes mellitus Fat Lesion in liver HX:MRSA Hyperlipidemia Insomnia Iron deficiency anemia Prostate Problem ( 01/2011) Severe low back pain Tobacco use disorder, continuous Surgical History History of - surgery Stented coronary artery (05/30/09) Family History Mother Diabetes Hypertension Obesity Father No problems noted. Sister No problems noted. Social History Does the Patient have a Healthcare Proxy: Yes (-Lis Ken) Does Patient have a DNR?: No Does Patient have a Living Will?: No Hx Recent Travel (where): No Smoking Status: Current every day smoker ROS Review of Systems Constitutional: Denies fever, chills, sweats, weakness, malaise, weight loss, weight gain or other ENT: Denies mouth pain, mouth swelling, dental pain, dry mouth, bleeding gums, ear pain, hearing loss, tinnitis, ear discharge, nasal pain, nasal discharge, nasal congestion, post nasal drip, epistaxis, throat pain, throat swelling, hoarseness, constant throat clearing, pain upon swallowing, recent head trauma, recent airplane travel, recent swimming/diving, uses hearing aid/ear plugs, pain worse with motion, prolonged use of topical meds or other Respiratory: Denies cough, sputum, orthopnea, SOB w/exertion rest, SOB with excertion, SOB at rest, SOB, stridor, wheezing, hemoptysis, pleuritic pain, exposures or other Cardiovascular: Denies chest pain, palpitations, orthopnea, hypertension, paroxysmal noc dyspnea, edema, light headedness, dyspnea on exertion, syncope, known heart murmurs, leg cramps w/walking, pain in feet/toes at night, varicose veins or other Gastrointestinal: Denies No Symptoms/Complaints, nausea, vomiting, abdominal pain, diarrhea, constipation, heartburn, reflux/regurg, frequent belching, hemorrhoids, hematemesis, black tarry stools, melena, hematochezia, coffee grounds emesis, stomach pain relieved by food, hx of jaundice or other Genitourinary-Male: Reports retention (Objective feeling of) and prostate issue Musculoskeletal: Denies neck pain, shoulder pain, arm pain, back pain, hand pain, leg pain, foot pain, thigh or calf cramps, muscle weakness, muscle tenderness, joint swelling, sciatica, muscle pain, joint pain or other Physical Exam General Physical Exam Narrative: So well-nourished well-developed 7-year-old gentleman was awake alert [place] x3 no acute distress. Limitations: no limitations Head Head exam: Present atraumatic, normocephalic and normal inspection Eye Eye exam: Present normal apperance, PERRL and EOMI; Absent scleral icterus ENT ENT exam: Present normal exam, normal orophraynx and mucous membranes moist GI/Abdominal GI/Abdominal exam: Present Abd soft, bowel sounds present all quadrents and normal bowel sounds; Absent distended, tenderness, guarding, rebound or rigid Rectal Rectal exam: Present deferred exam: Present normal inspection and other (Carbone c atheter is in place. There is a small amount of slightly yellowish but clear urine in the tube.); Absent testicular tenderness or urethral discharge Extremities Exam Extremities exam: Present normal inspection and other Back Exam Back exam: Present normal inspection and full ROM; Absent CVA tenderness (R) or CVA tenderness (L) Neurological Exam Neurological exam: Present alert, oriented X3, CN II-XII intact and normal gait Psychiatric Psychiatric exam: Present normal affect and normal mood Skin Skin exam: Present warm, dry, intact and normal color Vital Signs Vital Signs: Vital Signs 01/17/21 13:42 Temperature 98.4 F Pulse Rate 94 Respiratory Rate 16 Blood Pressure 153/86 O2 Sat by Pulse Oximetry 95 MDM (comprehensive) Medical Decision Making Free Text/Narative:: The Carbone catheter was irrigated with sterile water. We did retrieve several fairly significant particulate matters of old blood most likely retained from the time of insertion. Ultimately the catheter showed clear urine. Upon placing the bag in a dependent position the patient did drain clear yellow urine. He states he felt much better. I did discuss him that he really did not have an awful lot a urine in the bladder and very possibly that his sensation was secondary to catheter irritation of the bladder. In either event there is no signs of obstruction at this point in time and the patient is draining urine without difficulty. Discharge Plan Admission/Discharge Dx Primary DC Diagnosis: Plugged Carbone catheter ED Provider: David Woodard ED Status: Ready for Discharge Time Seen by Provider: 01/17/21 14:04 Triaged At: 01/17/21 13:42 Condition Condition: Good Discharge Detail Disposition: Home, Self-Care Med Rec New Prescriptions: No Action sulfamethoxazole- trimethoprim [Bactrim DS] 800-160 mg tablet 1 tab PO BID Qty: 7 RF: 0 ciprofloxacin HCl [Cipro] 500 mg tablet 500 mg PO BID Qty: 20 RF: 0 Probiotic (B. coagulans) 10 billion cell capsule,delayed release(DR/EC) 1 cell PO BID Qty: 60 RF: 0 tamsulosin [Flomax] 0.4 mg capsule 0.4 mg PO DAILY Qty: 10 RF: 0 Nitroglycerin (Nitrek (Nitroglycerin)) 0.4 mg Transdermal PRN Qty: 1 RF: 0 (DME) lancing device with lancets [Accu-Chek Multiclix Lancet] Kit 1 ea miscellaneous DAILY Qty: 1 RF: 5 metformin 500 mg tablet 500 mg PO BID Qty: 60 RF: 5 omeprazole magnesium 20 mg capsule,delayed release(DR/EC) 1 tab PO DAILY Qty: 30 RF: 5 Blood Sugar Diagnostic (Test Strip) 1 strip IN DAILY Qty: 1 RF: 5 niacin 500 mg tablet 3 tab PO BID Qty: 180 RF: 5 omega-3 acid ethyl esters [Lovaza] 1 gram capsule 2 g PO BID Qty: 120 RF: 5 albuterol sulfate [ProAir HFA] 8.5 GM HFA aerosol inhaler 2 puff Inhalation Q4HPRN PRN (Reason: Shortness Of Breath) Qty: 1 RF: 5 isosorbide mononitrate 20 MG tablet 20 mg PO TID Qty: 90 RF: 5 sertraline [Zoloft] 50 MG tablet 50 mg PO DAILY Qty: 30 RF: 5 fluticasone propion-salmeterol [Advair Diskus] 1 EACH blister with device 1 puff Inhalation BID Qty: 1 RF: 5 Spiriva with HandiHaler 18 MCG capsule, w/inhalation device 1 cap Inhalation DAILY Qty: 30 RF: 5 ferrous sulfate 324 MG tablet,delayed release (DR/EC) 324 mg PO BID Qty: 60 RF: 11 aspirin 325 MG tablet 325 mg PO DAILY Qty: 30 RF: 5 oxycodone- acetaminophen [Percocet] 1 EACH tablet 1 - 2 tab PO Q6HPRN PRN (Reason: SOB) Qty: 240 RF: 0 pregabalin [Lyrica] 50 MG capsule 50 mg PO BID Qty: 60 RF: 0 albuterol sulfate [ProAir HFA] 8.5 GM HFA aerosol inhaler 2 puff Inhalation Q4HPRN PRN (Reason: SOB) Qty: 1 RF: 0 lisinopril 5 MG tablet 5 mg PO DAILY Qty: 30 RF: 0 epinephrine [EpiPen] 0.3 MG/0.3 ML auto-injector 0.3 mg IM PRN Qty: 1 RF: 0 Discharge Education Printouts: Carbone Catheter Placement and Care (ED) Follow Up Visit/Referrals: AMADO TORO [PHYSICIAN] - (Keep appointment as already scheduled for tomorrow) Discharge Problem: Complication, blocked Carbone catheter Follow Up Care/Instructions Diet/Activity/Wound Care..: As we discussed and you were able to observe you did have some small old particles of blood that were blocking the outlet of your Carbone catheter. Despite that you did not have an excessive amount of urine in your catheter but in any event, as you also saw the catheter is now draining without difficulty. At this point time there is not much else to do. You should follow-up with the urologist as already scheduled. *Discharge Patient* Discharge Orders: Discharge Order (Routine); Ordered 01/17/21 Ordered By: David Woodard Interventions Interventions: ED Urogenital Last Done: 01/17/21 13:56 Report Signers: <Electronically signed by David Woodard > David Woodard 01/17/21 1445 David Woodard SIGNATURE DA Report Cosigners: D: FELISA 01/17/21 1437 T: FELISA 01/17/21 1437 CC: [facility] Name Value Range Interpretation Code Description Data Amrtine rce(s) Supporting Document(s) ID Date Data Source [id number] 01/17/2021 01:12:00 AM EDT [facility] ED Physician Documentation NAME: MCKINLEY KEN SR : 1950 AGE: 70 MR#: [id number] SERVICE DATE: 01/16/[address]: Jose Taylor MD PRIMARY CARE DR: Karine Montes De Oca ROOM#: [facility] (Adult, General) General Chief Complaint: Urogenital Stated Complaint: SOB,CATHETAR IS PLUGGED Time Seen by Provider: 01/16/21 19:53 History of Present Illness Narrative: Patient is a 70-year-old white male who presents here with a chief complaint of plugged Carbone catheter. He is in a fair amount of pain. Apparently this is the third time this is happened. He gets care through the [facility]. He apparently does have an appointment to [facility]rologist in consultation in the very near future. His pastmedical history is significant for COPD diabetes he continues to smoke and he has already had a CT scan done during the ER visit for placement of the catheter which showed bilateral hydronephrosis and positive nitrites however his urine cultures on 3 occasions of all been negative. Was concerning as I see a PSA of 53 in the record. He is aware that his PSA is elevated. CT scan did not show bladder mass according to the report. Allergies/Home Meds Allergies Allergy/AdvReac Type Severity Reaction Status Date / Time BEE STINGS [BEE STING] Allergy Severe ANGIOEDEMA Verified 01/16/21 20:44 NKDA Allergy Unknown Uncoded 01/16/21 20:44 Home Medications Medication Instructions Recorded Confirmed Last Taken Type Nitroglycerin (Nitrek 0.4 mg TRANSDERMAL PRN #1 err.other 06/18/12 Unknown Rx (Nitroglycerin)) lancing device with lancets #1 pkg 02/08/13 Unknown Rx [Accu-Chek Multiclix Lancet] metformin 500 mg PO BID #60 tab 07/07/13 Unknown Rx omeprazole magnesium 1 tab PO DAILY #30 cap 07/07/13 Unknown Rx Blood Sugar Diagnostic (Test Strip) 1 strip IN DAILY #1 box 08/08/13 Unknown Rx niacin 3 tab PO BID #180 tab 08/08/13 Unknown Rx omega-3 acid ethyl esters [Lovaza] 2 g PO BID #120 cap 08/08/13 Unknown Rx albuterol sulfate [Proair Hfa] 2 puff INHALATION Q4HPRN PRN #1 ea 09/06/13 Unknown History isosorbide mononitrate 20 mg PO TID #90 tab 10/27/13 Unknown History sertraline [Zoloft] 50 mg PO DAILY #30 tab 10/27/13 Unknown History fluticasone propion-salmeterol 1 puff INHALATION BID #1 ea 10/28/13 Unknown History [Advair 250-50 Diskus] ferrous sulfate 324 mg PO BID #60 tab 11/25/13 Unknown History tiotropium bromide [Spiriva] 1 cap INHALATION DAILY #30 cap 11/25/13 Unknown History aspirin 325 mg PO DAILY #30 tab 12/05/13 Unknown History oxycodone-acetaminophen [Percocet 1 - 2 tab PO Q6HPRN PRN #240 tab 12/09/13 Unknown History 7.5-325 Mg Tablet] pregabalin [Lyrica] 50 mg PO BID #60 err.none 12/09/13 Unknown History albuterol sulfate [Proair Hfa] 2 puff INHALATION Q4HPRN PRN #1 ea 12/27/13 Unknown History lisinopril 5 mg PO DAILY #30 tab 01/02/14 Unknown History epinephrine [Epipen 2-Golden] 0.3 mg IM PRN #1 ea 01/12/14 Unknown History sulfamethoxazole-trimethoprim 1 tab PO BID #7 tab 01/10/21 Unknown Rx [Bactrim DS] Bacillus coagulans [Probiotic (B. 1 cell PO BID #60 cap 01/12/21 Unknown Rx coagulans)] ciprofloxacin HCl [Cipro] 500 mg PO BID #20 tab 01/12/21 Unknown Rx tamsulosin [Flomax] 0.4 mg PO DAILY #10 cap 01/15/21 Unknown Rx PMH (from Triage) Patient Medical History PMH Reviewed/Updated as Needed: Yes PMH/PSH from Triage: Medical History (Updated 01/12/21 @ 18:59 by Anat Jerome NP) Chronic obstructive lung disease (Medical) Coronary Artery Disease (Medical 05/30/09) One srent Depressive disorder (Medical) Diabetes mellitus (Medical) Fat Lesion in liver (Medical) HX:MRSA (Medical) Hyperlipidemia (Medical) Insomnia (Medical) Iron deficiency anemia (Medical) Prostate Problem (Medical 01/2011) PSa 14.9 Severe low back pain (Medical) Tobacco use disorder, continuous (Medical) Surgical History (Updated 12/28/18 @ 11:59 by [email or web address] [place]) History of - surgery (Surgical) (L) repair Stented coronary artery (Surgical 05/30/09) one stent Hx Drug Resistant Infections Hx MRSA: (Methicillin-resistant Staphylococcus aureus): No Hx VRE (Vancomycin-resistant enterococci): No Hx C.Diff: No Hx CRKP: No Hx Other Resistant Infection?: No Isolation: Standard precautions Hx Recent Travel Out of the country within 10 days (where): No Hx Fever: No Hx Fever with a rash?: No Nurse screening for coronavirus: Recent Travel outside the No country (where) Social History Does patient have suicidal/homicidal thoughts or ideation?: No Are you in a relationship with/Does anyone hit you, yell/swear at you, steal from you?: No Substance Use Smoking Status: Current every day smoker Tobacco Use Hx Chewing Tobacco Use: No Vaccination History Hx/Date of Tetanus, Diphtheria Vaccination: Yes Hx/Date of Influenza Vaccination: No Hx/Date of Pneumococcal Vaccination: No PFSH Medical History Chronic obstructive lung disease Coronary Artery Disease (05/30/09) Depressive disorder Diabetes mellitus Fat Lesion in liver HX:MRSA Hyperlipidemia Insomnia Iron deficiency anemia Prostate Problem ( 01/2011) Severe low back pain Tobacco use disorder, continuous Surgical History History of - surgery Stented coronary artery (05/30/09) Family History Mother Diabetes Hypertension Obesity Father No problems noted. Sister No problems noted. Social History Does the Patient have a Healthcare Proxy: Yes (-Lis Ken) Does Patient have a DNR?: No Does Patient have a Living Will?: No Hx Recent Travel (where): No Smoking Status: Current every day smoker ROS Review of Systems ROS Narrative: Severe pain lower abdomen Carbone catheter plugged. Constitutional: Denies fever Eyes: Denies vision change, eye discharge/drng or redness ENT: Denies mouth pain or mouth swelling Respiratory: Denies cough, sputum, SOB w/exertion rest, SOB with excertion, SOB at rest or wheezing Cardiovascular: Denies chest pain or palpitations Gastrointestinal: Reports abdominal pain; Denies nausea or vomiting Genitourinary-Male: Reports dysuria, retention and cloudy or smoky urine Musculoskeletal: Denies neck pain, shoulder pain or muscle weakness Skin/Breasts: Denies rash or lesions Neurologic: Denies weakness, numbness or headache Psychiatric: Reports No Symptoms/Complaints Endocrine: Reports No Symptoms/Complaints Hematological/Lymphatic: Reports No Symptoms/Complaints Allergic/Immunologic: Reports No Symptoms/Complaints Physical Exam General Physical Exam Narrative: Obvious discomfort. Edentulous. Injected conjunctiva. Dull dull to percussion lower abdomen with distended bladder. No peritoneal findings. Plugged Carbone catheter. Ice tea colored urine in the bag. Limitations: no limitations Head Head exam: Present atraumatic and normocephalic Eye Eye exam: Present normal apperance, PERRL and EOMI; Absent scleral icterus or conjunctival injection Pupils: Present normal accommodation ENT ENT exam: Present normal exam and normal orophraynx Neck Neck exam: Present normal inspection and full ROM; Absent tenderness or meningismus Respiratory Respiratory exam: Present normal lung sounds bilaterally; Absent respiratory distress, wheezes, rales, rhonchi or chest wall tenderness Cardiovascular Cardiovascular Exam: Present regular rate, normal rhythm, normal heart sounds and no murmur GI/Abdominal GI/Abdominal exam: Present Abd soft, bowel sounds present all quadrents, distended, tenderness and normal bowel sounds Rectal Rectal exam: Present deferred exam: Present normal inspection and other (Nondraining Carbone catheter in place. No hernias.) Extremities Exam Extremities exam: Present normal inspection, Full ROM without tenderness, capillary refill brisk, full ROM and capillary refill brisk; Absent tenderness, pedal edema or calf tenderness Back Exam Back exam: Presen t normal inspection and full ROM Neurological Exam Neurological exam: Present alert, oriented X3, CN II-XII intact and normal gait Psychiatric Psychiatric exam: Present normal affect Skin Skin exam: Present warm, dry and intact; Absent petechiae Vital Signs Vital Signs: Vital Signs 01/16/21 19:17 01/16/21 20:33 Temperature 98.3 F Pulse Rate 93 76 Respiratory Rate 18 16 Blood Pressure 130/61 O2 Sat by Pulse Oximetry 96 94 L MDM (comprehensive) Lab Data Labs: Laboratory Results Last 24 hours 01/16/21 20:30: Urine Color [place] A, Urine Appearance Cloudy A, Urine pH 6.0, Ur Specific [place] 1.007, Urine Protein 100 mg/dl H, Urine Ketones Negative, Urine Blood Large A, Urine Nitrate Negative, Urine Bilirubin Negative, Urine Urobilinogen 0.2 eu/dl, Ur Leukocyte Esterase Small A, Add Ur Microanalysis Microscopic added, Urine RBC 31-40 H, Urine WBC 1-2, Ur Squamous Epith Cells Few, Urine Cindy teria Small amount H, Urine Glucose Negative Medical Decision Making Free Text/Narative:: Nurses were able to irrigate his catheter for a few scant clots and he drained a fair amount of iced tea colored urine. No indication for repeat laboratory studies. I did inform him that his PSA was elevated and with his smoking history he certainly is a candidate for bladder cancer and needs to follow-up with the urologist as soon as possible. He wanted a syringe to do this at home for himself as he does not like coming to the emergency room but I indicated to him that he could actually cause a significant infection and significant and dangerous effects if he did not know exactly what he was doing and I suggested that if he plugs up again that he unfortunately does need to come back to the emergency room. He has a very young who recently delivered a baby. As I am talking to him I noticed that she has significant swelling to her legs. I asked her to take her blood pressure at home and call her dolly operator first thing in the morning to make sure that she was not developing preeclampsia. I explained to both of them that he definitely needs urologic evaluation as soon as possible. Discharge Plan Admission/Discharge Dx Primary DC Diagnosis: Catheter problem hematuria ED Provider: Jose Taylor ED Status: Discharged Time Seen by Provider: 01/16/21 19:53 Triaged At: 01/16/21 19:17 Condition Condition: Stable Discharge Detail Disposition: Home, Self-Care Med Rec New Prescriptions: No Action sulfamethoxazole-trimethoprim [Bactrim DS] 800-160 mg tablet 1 tab PO BID Qty: 7 RF: 0 ciprofloxacin HCl [Cipro] 500 mg tablet 500 mg PO BID Qty: 20 RF: 0 Probiotic (B. coagulans) 10 billion cell capsule,delayed release(DR/EC) 1 cell PO BID Qty: 60 RF: 0 tamsulosin [Flomax] 0.4 mg capsule 0.4 mg PO DAILY Qty: 10 RF: 0 Nitroglycerin (Nitrek (Nitroglycerin)) 0.4 mg Transdermal PRN Qty: 1 RF: 0 (DME) lancing device with lancets [Accu-Chek Multiclix Lancet] Kit 1 ea miscellaneous DAILY Qty: 1 RF: 5 metformin 500 mg tablet 500 mg PO BID Qty: 60 RF: 5 omeprazole magnesium 20 mg capsule,delayed release(DR/EC) 1 tab PO DAILY Qty: 30 RF: 5 Blood Sugar Diagnostic (Test Strip) 1 strip IN DAILY Qty: 1 RF: 5 niacin 500 mg tablet 3 tab PO BID Qty: 180 RF: 5 omega-3 acid ethyl esters [Lovaza] 1 gram capsule 2 g PO BID Qty: 120 RF: 5 albuterol sulfate [ProAir HFA] 8.5 GM HFA aerosol inhaler 2 puff Inhalation Q4HPRN PRN (Reason: Shortness Of Breath) Qty: 1 RF: 5 isosorbide mononitrate 20 MG tablet 20 mg PO TID Qty: 90 RF: 5 sertraline [Zoloft] 50 MG tablet 50 mg PO DAILY Qty: 30 RF: 5 fluticasone propion-salmeterol [Advair Diskus] 1 EACH blister with device 1 puff Inhalation BID Qty: 1 RF: 5 Spiriva with HandiHaler 18 MCG capsule, w/inhalation device 1 cap Inhalation DAILY Qty: 30 RF: 5 ferrous sulfate 324 MG tablet,delayed release (DR/EC) 324 mg PO BID Qty: 60 RF: 11 aspirin 325 MG tablet 325 mg PO DAILY Qty: 30 RF: 5 oxycodone-acetaminophen [Percocet] 1 EACH tablet 1 - 2 tab PO Q6HPRN PRN (Reason: SOB) Qty: 240 RF: 0 pregabalin [Lyrica] 50 MG capsule 50 mg PO BID Qty: 60 RF: 0 albuterol sulfate [ProAir HFA] 8.5 GM HFA aerosol inhaler 2 puff Inhalation Q4HPRN PRN (Reason: SOB) Qty: 1 RF: 0 lisinopril 5 MG tablet 5 mg PO DAILY Qty: 30 RF: 0 epinephrine [EpiPen] 0.3 MG/0.3 ML auto-injector 0.3 mg IM PRN Qty: 1 RF: 0 Follow Up Care/Instructions Diet/Activity/Wound Care..: Return to the emergency room if your catheter fails to drain. [facility]. You must be referred to a urologist to discuss your elevated PSA that I found in the computer and the possibility that she could have bladder cancer. Follow-up as needed. *Discharge Patient* Discharge Orders: Discharge Order (Routine); Ordered 01/16/21 Ordered By: Jose Taylor Discharge Date/Time: 01/16/21 22:03 Interventions Interventions: ED Discharge Instructions Last Done: 01/16/21 22:21 ED Urogenital Last Done: 01/16/21 20:28 Report Signers: <Electronically signed by Jose Taylor MD> Jose Taylor MD 01/17/21 0117 Jose Taylor MD SIGNATURE DA Report Cosigners: D: BENJI 01/17/21111 T: BENJI 01/17/21111 CC: Karine Montes De Oca Name Value Range Interpretation Code Description Data Martine rce(s) Supporting Document(s) ID Date Data Source [id number] 01/16/2021 09:04:00 PM EDT [facility] Reason for ordering culture: Abnormal fi ndings UA@01/16/212035: UA W/ MICRO added. RFLXG = UMIC CIF.Method of Collection:: Cath Specimen @01/16/212103: Urine culture added. RFL XG = CULT.ADD. Reason for ordering culture: Abnormal fi ndings UA@01/16/212035: UA W/ MICRO added. RFLXG = UMIC CIF.Method of Collection:: Cath Specimen Name Value Range Interpretation Code Description Data Martine rce(s) Supporting Document(s) Color of Urine Abnormal (applies to non-numeric results) [facility] @Review & document. Appearance of Urine CLEAR Abnormal (applies to non-nu meric results) [facility] pH of Urine by Test strip 6.0 5-8 [facility] Specific gravity of Urine by Refractometry 1.007 1.005-1.030 [facility] Leukocyte esterase [Presence] in Urine by Test strip NEGATIVE Abnormal (applies to non-numeric results) [facility] @DO MICRO!!!!A Culture has been added to this specimen per established criteria Nitrite [Presence] in Urine by Test strip NEGATIVE [facility] Protein [Presence] in Urine by Test strip NEGATIVE Above high normal [facility] @DO MICRO!!!! Glucose [Mass/volume] in Urine by Automated test strip NEGATIVE NEG ATIVE [facility] Ketones [Presence] in Urine by Test strip NEGATIVE [facility] Urobilinogen [Presence] in Urine 0.2-1 EU/dl [facility] Bilirubin.total [Presence] in Urine by Automated test strip NEGATIVE [facility] Erythrocytes [#/volume] in Urine by Test strip LARGE N EGATIVE Abnormal (applies to non-numeric results) [facility] @DO MICRO!!!!A Culture has been added to this specimen per established criteria URINE MICROSCOPIC? (CIF) Microscopic Added [facility] ID Date Data Source [id number] 01/18/2021 06:49:00 AM EDT [facility] Reason for ordering culture: Abnormal fi ndings UA@01/16/212035: UA W/ MICRO added. RFLXG = UMIC CIF.Method of Collection:: Cath Specimen @01/16/212103: Urine culture added. RFL XG = CULT.ADD. Reason for ordering culture: Abnormal fi ndings UA@01/16/212035: UA W/ MICRO added. RFLXG = UMIC CIF.Method of Collection:: Cath Specimen Name Value Range Interpretation Code Description Data Martine rce(s) Supporting Document(s) Urine culture result No growth [facility] ID Date Data Source [id number] 01/16/2021 09:04:00 PM EDT [facility] Reason for ordering culture: Abnormal fi ndings UA@01/16/212035: UA W/ MICRO added. RFLXG = UMIC CIF.Method of Collection:: Cath Specimen @01/16/212103: Urine culture added. RFL XG = CULT.ADD. Reason for ordering culture: Abnormal fi ndings UA@01/16/212035: UA W/ MICRO added. RFLXG = UMIC CIF.Method of Collection:: Cath Specimen Name Value Range Interpretation Code Description Data Martine rce(s) Supporting Document(s) Erythrocytes [#/volume] in Urine by Manual count 31-40 /hpf 0-5 Above high normal [facility] Leukocytes [#/volume] in Urine by Manual count 1-2 /hpf 0-5 [facility] Cells [Type] in Urine sediment by Light microscopy [facility] Bacteria [Presence] in Urine sediment by Light microscopy NEGATIVE Above high normal [facility] ID Date Data Source [id number] 01/14/2021 10:37:00 PM EDT [facility] ED Physician Documentation NAME: MCKINLEY KNE SR : 1950 AGE: 70 MR#: [id number] SERVICE DATE: 01/14/[address]: Donny Gambino MD PRIMARY CARE DR: Karine Montes De Oca ROOM#: HPI (Adult, General) General Chief Complaint: Urogenital Stated Complaint: BLOOD IN CATHETER Time Seen by Provider: 01/14/21 21:25 History of Present Illness Narrative: 70-year-old white male seen 4 days ago in this emergency department for acute urinary retention with a known history of PSA 1 year ago at the SD of 21 (with decision not to f/u) for which a 16 coud catheter was placed and he was referred to Dr. Toro in2 days home he did not call after signing out AMA at that time. Patient now complaining of gross painless hematuria via the Carbone catheter at the present time. patient had no fever or chills or flank pain or other symptoms however, but he did develop discomfort in the suprapubic and abdominal region while in the emergency department after and during irrigation of the Carbone. During this procedure several small clots were removed and the dark red homogeneous urine content of the leg bagdid improve to a wine denise colored with better output. Hence after consultation with urology the Carbone was removed and the patient observed to determine whether or not he could void ROS is otherwise acutely noncontributory EMH as per previous chart from 4 days ago , , Allergies/Home Meds Allergies Allergy/AdvReac Type Severity Reaction Status Date / Time BEE STINGS [BEE STING] Allergy Severe ANGIOEDEMA Verified 01/14/21 20:05 NKDA Allergy Unknown Uncoded 01/14/21 20:05 Home Medications Medication Instructions Recorded Confirmed Last Taken Type Nitroglycerin (Nitrek 0.4 mg TRANSDERMAL PRN #1 err.other 06/18/12 Unknown Rx (Nitroglycerin)) lancing device with lancets #1 pkg 02/08/13 Unknown Rx [Accu-Chek Multiclix Lancet] metformin 500 mg PO BID #60 tab 07/07/13 Unknown Rx omeprazole magnesium 1 tab PO DAILY #30 cap 07/07/13 Unknown Rx Blood Sugar Diagnostic (Test Strip) 1 strip IN DAILY #1 box 08/08/13 Unknown Rx niacin 3 tab PO BID #180 tab 08/08/13 Unknown Rx omega-3 acid ethyl esters [Lovaza] 2 g PO BID #120 cap 08/08/13 Unknown Rx albuterol sulfate [Proair Hfa] 2 puff INHALATION Q4HPRN PRN #1 ea 09/06/13 Unknown History isosorbide mononitrate 20 mg PO TID #90 tab 10/27/13 Unknown History sertraline [Zoloft] 50 mg PO DAILY #30 tab 10/27/13 Unknown History fluticasone propion-salmeterol 1 puff INHALATION BID #1 ea 10/28/13 Unknown History [Advair 250-50 Diskus] ferrous sulfate 324 mg PO BID #60 tab 11/25/13 Unknown History tiotropium bromide [Spiriva] 1 cap INHALATION DAILY #30 cap 11/25/13 Unknown History aspirin 325 mg PO DAILY #30 tab 12/05/13 Unknown History oxycodone-acetaminophen [Percocet 1 - 2 tab PO Q6HPRN PRN #240 tab 12/09/13 Unknown History 7.5-325 Mg Tablet] pregabalin [Lyrica] 50 mg PO BID #60 err.none 12/09/13 Unknown History albuterol sulfate [Proair Hfa] 2 puff INHALATION Q4HPRN PRN #1 ea 12/27/13 Unknown History lisinopril 5 mg PO DAILY #30 tab 01/02/14 Unknown History epinephrine [Epipen 2-Golden] 0.3 mg IM PRN #1 ea 01/12/14 Unknown History sulfamethoxazole-trimethoprim 1 tab PO BID #7 tab 01/10/21 Unknown Rx [Bactrim DS] Bacillus coag ulans [Probiotic (B. 1 cell PO BID #60 cap 01/12/21 Unknown Rx coagulans)] ciprofloxacin HCl [Cipro] 500 mg PO BID #20 tab 01/12/21 Unknown Rx tamsulosin [Flomax] 0.4 mg PO DAILY #10 cap 01/15/21 Unknown Rx ER plan Plan: The ED orders and below data - see PMH (from Triage) Patient Medical History PMH Reviewed/Updated as Needed: Yes PMH/PSH from Triage: Medical History (Updated 01/12/21 @ 18:59 by Anat Jerome NP) Chronic obstructive lung disease (Medical) Coronary Artery Disease (Medical 05/30/09) One srent Depressive disorder (Medical) Diabetes mellitus (Medical) Fat Lesion in liver (Medical) HX:MRSA (Medical) Hyperlipidemia (Medical) Insomnia (Medical) Iron deficiency anemia (Medical) Prostate Problem (Medical 01/2011) PSa 14.9 Severe low back pain (Medical) Tobacco use disorder, continuous (Medical) Surgical History (Updated 12/28/18 @ 11:59 by [email or web address] [place]) History of - surgery (Surgical) (L) repair Stented coronary artery (Surgical 05/30/09) one stent Hx Drug Resistant Infections Hx MRSA: (Methicillin-resistant Staphylococcus aureus): No Hx VRE (Vancomycin-resistant enterococci): No Hx C.Diff: No Hx CRKP: No Hx Other Resistant Infection?: No Isolation: Standard precautions Hx Recent Travel Out of the country within 10 days (where): No Hx Fever: No Hx Fever with a rash?: No Nurse screening for coronavirus: Recent Travel outside the No country (where) Has patient experienced No coronavirus symptoms Social History Does patient have suicidal/homicidal thoughts or ideation?: No Are you in a relationship with/Does anyone hit you, yell/swear at you, steal from you?: No Substance Use Smoking Status: Current every day smoker Tobacco Use Hx Chewing Tobacco Use: No Vaccination History Hx/Date of Tetanus, Diphtheria Vaccination: Yes Hx/Date of Influenza Vaccination: No Hx/Date of Pneumococcal Vaccination: No PFSH Medical History Chronic obstructive lung disease Coronary Artery Disease (05/30/09) Depressive disorder Diabetes mellitus Fat Lesion in liver HX:MRSA Hyperlipidemia Insomnia Iron deficiency anemia Prostate Problem ( 01/2011) Severe low back pain Tobacco use disorder, continuous Surgical History History of - surgery Stented coronary artery (05/30/09) Family History Mother Diabetes Hypertension Obesity Father No problems noted. Sister No problems noted. Social History Does the Patient have a Healthcare Proxy: Yes (- Lis Ken) Does Patient have a DNR?: No Does Patient have a Living Will?: No Hx Recent Travel (where): No Smoking Status: Current every day smoker ROS Review of Systems Constitutional: Denies fever, chills, sweats or malaise Eyes: Denies vision change or eye pain ENT: Denies mouth pain, mouth swelling, dental pain, ear pain, nasal pain, throat pain, throat swelling or recent head trauma Respiratory: Denies cough, SOB, stridor, wheezing or hemoptysis Cardiovascular: Denies chest pain, paroxysmal noc dyspnea, dyspnea on exertion, leg cramps w/walking or pain in feet/toes at night Gastrointestinal: Denies nausea, vomiting, abdominal pain, diarrhea or constipation Genitourinary-Male: Reports hematuria; Denies dysuria, frequency, retention, urgency, penile discharge or testicular issue Musculoskeletal: Denies neck pain, shoulder pain, arm pain, back pain or hand pain Skin/Breasts: Denies rash or pruritus Neurologic: Denies headache, incoordination, change in speech, confusion or abnormal gait Endocrine: Denies Excessive sweating, Intolerance to cold, Polydipsia, Polyuria or Unexplained weight loss Hematological/Lymphatic: Denies easy bleeding Allergic/Immunologic: Denies rash, night sweats, wheals or flare Physical Exam General General appearance: alert, in no apparent distress and anxious Head Head exam: Present atraumatic and normal inspection Eye Eye exam: Present normal apperance, PERRL and EOMI; Absent scleral icterus Pupils: Present normal accommodation ENT ENT exam: Present normal exam and normal orophraynx Neck Neck exam: Present normal inspection and supple; Absent meningismus or lymphadenopathy Respiratory Respiratory exam: Present normal lung sounds bilaterally; Absent respiratory distress or prolonged expiratory Cardiovascular Cardiovascular Ex am: Present regular rate, normal rhythm, normal heart sounds and no murmur; Absent rubs, gallop, clicks, JVD, S3 or S4 GI/Abdominal GI/Abdominal exam: Present Abd soft, bowel sounds present all quadrents, soft, distended (Bladder area only minimally), normal bowel sounds and pulsatile mass (NT ); Absent guarding, rebound or organomegaly Rectal Rectal exam: Present deferred exam: Present normal inspection, circumcision and other (Fully is intact and draining properly initially); Absent testicular tenderness, urethral discharge or scrotal swelling Extremities Exam Extremities exam: Present capillary refill brisk; Absent tenderness or calf tenderness Back Exam Back exam: Present normal inspection; Absent CVA tenderness (R), CVA tenderness (L), paraspinal tenderness or vertebral tenderness Neurological Exam Neurological exam: Present alert, oriented X3, CN II-XII intact and normal gait; Absent motor sensory deficit Psychiatric Psychiatric exam: Present normal affect and normal mood Skin Skin exam: Present warm and dry; Absent rash or cyanosis Vital Signs Vital Signs: Vital Signs 01/14/21 20:02 01/14/21 21:01 01/15/21 00:48 Temperature 98.7 F 97.8 F 98.0 F Pulse Rate 88 82 80 Respiratory Rate 16 18 18 Blood Pressure 146/72 135/77 139/60 O2 Sat by Pulse Oximetry 97 96 97 MDM (comprehensive) Lab Data Labs: 01/14/21 21:50 01/14/21 21:50 Laboratory Results Last 24 hours 01/14/21 21:50: WBC 7.6, RBC 3.85 L, Hgb 11.4 L, Hct 36.0 L, MCV 94, MCH 30, MCHC 32 L, RDW 13, Plt Count 272, MPV 9.7, Immature Gran % (Auto) 0.5, Neut % (Auto) 70.4, Lymph % (Auto) 17.2, [place] % (Auto) 8.9, Eos % (Auto) 2.5, Baso % (Auto) 0.5, Lymph # (Auto) 1.3, Abs Immat Gran (auto) 0.0, Add Manual Diff No, Absolute Neutrophils 5.3, Monocytes # 0.7, Absolute Eosinophils 0.2, Absolute Basophils 0.0 01/14/21 21:50: PT 10.7, INR 1.0, PTT (Cecil) 26.8 07/12/21 21:50: Sodium 141, Potassium 4.6, Chloride 110 H, Carbon Dioxide 26, Anion Gap 10, BUN 29 H, Creatinine 1.6 H, GFR Calculation 43, Glucose 98, Calcium 8.7 01/14/21 22:10: Urine Color Red, Urine Appearance Bloody A, Urine pH 6.0, Ur Specific Larsen 1.017, Urine Protein 300 mg/dl H, Urine Ketones Negative, Urine Blood Large H, Urine Nitrite Positive H, Urine Bilirubin Small H, Urine Ictotest Negative, Urine Urobilinogen 0.2 eu/dl, Ur Leukocyte Esterase Moderate H, Urine RBC Tntc H, Urine WBC 1-2, Micro UA Comment Microscopic added, Urine Glucose Negative Medical Decision Making Free Text/Narative:: EDMD procedure note -using sterile technique and a 60 cc Alfonso syringe and sterile saline catheter and bladder was irrigated manually by myself removing several small clots with improvement of function and transition of a dark homogeneous venous urine mixed to that of a light denise wine color . [address] Toro/Nadir - especially in light of the 2.4 g loss in Hb over 4 d above ssx - patient can be managed as an outpatient and they will see him in the office within the next couple of days. If he is able to void then he can go home without a catheter on Flomax; if unable to void the catheter needs to be replaced prior to discharge and patient maintained on Flomax 1145 c - Pt unable to void 20 Carbone catheter was placed with irrigation of of small clots which indeed Then yielded. 1900 output after the patient had large oral intake after patient again became asymptomatic and the Carbone catheter was left in with a leg bag discharged home as above and per below data , , Critical Care Time Critical Care Time Critical Care Time: Yes ED Critical Care Time - [facility]: 31-74 Minutes Total Critical Care Time: 33 Plan Plan Plan: Per above and discharge data Visit Medications Administered ED medications:: Medications Discontinued Medications Generic Name Dose Route Start Last Admin Trade Name Freq PRN Reason Stop Dose Admin Tamsulosin HCl 0.4 mg 01/14/21 22:28 01/14/21 22:37 Tamsulosin Hcl 0.4 Mg Capsule PO 01/14/21 22:29 0.4 mg ONCE ONE Administration Discharge Plan Admission/Discharge Dx Primary DC Diagnosis: Temp Indwel Carbone/ Gross Painless Hematuria ( 2.1g Hb in 4d)/ Hx as prior ED Provider: Donny Gambino ED Status: Discharged Time Seen by Provider: 01/14/21 21:25 Triaged At: 01/14/21 19:35 Condition Condition: Stable Discharge Detail Disposition: Home, Self-Care Med Rec New Prescriptions: New tamsulosin [Flomax] 0.4 mg capsule 0.4 mg PO DAILY Qty: 10 RF: 0 No Action sulfamethoxazole-trimethoprim [Bactrim DS] 800-160 mg tablet 1 tab PO BID Qty: 7 RF: 0 ciprofloxacin HCl [Cipro] 500 mg tablet 500 mg PO BID Qty: 20 RF: 0 Probiotic (B. coagulans) 10 billion cell capsule,delayed r elease(DR/EC) 1 cell PO BID Qty: 60 RF: 0 Nitroglycerin (Nitrek (Nitroglycerin)) 0.4 mg Transdermal PRN Qty: 1 RF: 0 (DME) lancing device with lancets [Accu-Chek Multiclix Lancet] Kit 1 ea miscellaneous DAILY Qty: 1 RF: 5 metformin 500 mg tablet 500 mg PO BID Qty: 60 RF: 5 omeprazole magnesium 20 mg capsule,delayed release(DR/EC) 1 tab PO DAILY Qty: 30 RF: 5 Blood Sugar Diagnostic (Test Strip) 1 strip IN DAILY Qty: 1 RF: 5 niacin 500 mg tablet 3 tab PO BID Qty: 180 RF: 5 omega-3 acid ethyl esters [Lovaza] 1 gram capsule 2 g PO BID Qty: 120 RF: 5 albuterol sulfate [ProAir HFA] 8.5 GM HFA aerosol inhaler 2 puff Inhalation Q4HPRN PRN (Reason: Shortness Of Breath) Qty: 1 RF: 5 isosorbide mononitrate 20 MG tablet 20 mg PO TID Qty: 90 RF: 5 sertraline [Zoloft] 50 MG tablet 50 mg PO DAILY Qty: 30 RF: 5 fluticasone propion-salmeterol [Advair Diskus] 1 EACH blister with device 1 puff Inhalation BID Qty: 1 RF: 5 Spiriva with HandiHaler 18 MCG capsule, w/inhalation device 1 cap Inhalation DAILY Qty: 30 RF: 5 ferrous sulfate 324 MG tablet,delayed release (DR/EC) 324 mg PO BID Qty: 60 RF: 11 aspirin 325 MG tablet 325 mg PO DAILY Qty: 30 RF: 5 oxycodone-acetaminophen [Percocet] 1 EACH tablet 1 - 2 tab PO Q6HPRN PRN (Reason: SOB) Qty: 240 RF: 0 pregabalin [Lyrica] 50 MG capsule 50 mg PO BID Qty: 60 RF: 0 albuterol sulfate [ProAir HFA] 8.5 GM HFA aerosol inhaler 2 puff Inhalation Q4HPRN PRN (Reason: SOB) Qty: 1 RF: 0 lisinopril 5 MG tablet 5 mg PO DAILY Qty: 30 RF: 0 epinephrine [EpiPen] 0.3 MG/0.3 ML auto-injector 0.3 mg IM PRN Qty: 1 RF: 0 Discharge Education Printouts: Urinary Retention in Men (ED), Carbone Catheter Placement and Care (ED), Hematuria (ED) Follow Up Visit/Referrals: AMADO TORO [PHYSICIAN] - KARINE MONTES DE OCA [Primary Care Provider] - Medications Medication reconciliation performed by provider at discharge: Yes Follow Up Care/Instructions Diet/Activity/Wound Care..: see Dx's see Rx cont other present meds regimes for now Call Dr Toro / Nadir office in am for appt in 1-2 d RTED if sx recur or any fever pain increased bleeding or no urine output as discussed , , *Discharge Patient* Discharge Orders: Discharge Order (Routine); Ordered 01/15/21 Ordered By: Donny Gambino Discharge Date/Time: 01/15/21 00:48 Interventions Interventions: ED Discharge Instructions Last Done: 01/15/21 00:50 ED Urogenital Last Done: 01/14/21 20:03 Report Signers: <Electronically signed by Donny Gambino MD> Donny Gambino MD 01/15/21 0202 Donny Gambino MD SIGNATURE DA Report Cosigners: D: PRIYA 01/14/212236 T: PRIYA 01/14/212236 CC: Karine Tavon Name Value Range Interpretation Code Description Data Martine rce(s) Supporting Document(s) ID Date Data Source [id number] 01/14/2021 11:07:00 PM EDT [facility] @01/14/21 2245: UA W/ MICRO added. RFLXG = UMIC.@01/14/21 2306: ICTO added. RFLXG = PBILI.Method of Collection:: Cath Specimen @01/14/21 2245: UA W/ MICRO added. RFLXG = UMIC.@01/14/21 2306: ICTO added. RFLXG = PBILI.Method of Collection:: Cath Specimen @01/14/21 2245: UA W/ MICRO added. RFLXG = UMIC.@01/14/21 2306: ICTO added. RFLXG = PBILI.Method of Collection:: Cath Specimen Name Value Range Interpretation Code Description Data [facility] rce(s) Supporting Document(s) Color of Urine [facility] Appearance of Urine CLEAR Abnormal (applies to non-nu meric results) [facility] pH of Urine by Test strip 6.0 5-8 [facility] Specific gravity of Urine by Refractometry 1.017 1.005-1.030 [facility] Leukocyte esterase [Presence] in Urine by Test strip NEGATIVE Above high normal [facility] @DO MICRO!!!! Nitrite [Presence] in Urine by Test strip NEGATIVE Above high normal [facility] RESULT MAY BE INVALID DUE TO COLOR OF UR INE@DO MICRO!!!! Protein [Presence] in Urine by Test strip NEGATIVE Above high normal [facility] @DO MICRO!!!! Glucose [Mass/volume] in Urine by Automated test strip NEGATIVE NEG ATIVE [facility] Ketones [Presence] in Urine by Test strip NEGATIVE [facility] Urobilinogen [Presence] in Urine 0.2-1 EU/dl [facility] Bilirubin.total [Presence] in Urine by Automated test strip NEGATIVE Above high normal [facility] @ DO URINE PAD BILI Erythrocytes [#/volume] in Urine by Test strip LARGE NEGATIV E Above high normal [facility] @DO MICRO!!!! URINE MICROSCOPIC ADDED Microscopic Added [facility] ID Date Data Source [id number] 01/16/2021 08:19:00 AM EDT [facility] @01/14/215: UA W/ MICRO added. RFLXG = UMIC.@01/14/21 230: ICTO added. RFLXG = PBILI.Method of Collection:: Cath Specimen @01/14/212244: UA W/ MICRO added. RFLXG = UMIC.@01/14/212305: ICTO added. RFLXG = PBILI.Method of Collection:: Cath Specimen @01/14/212244: UA W/ MICRO added. RFLXG = UMIC.@01/14/21 230: ICTO added. RFLXG = PBILI.Method of Collection:: Cath Specimen Name Value Range Interpretation Code Description Data Martine rce(s) Supporting Document(s) Urine culture result No growth [facility] ID Date Data Source [id number] 01/14/2021 11:07:00 PM EDT [facility] @01/14/212244: UA W/ MICRO added. RFLXG = UMIC.@01/14/21 230: ICTO added. RFLXG = PBILI.Method of Collection:: Cath Specimen @01/14/212244: UA W/ MICRO added. RFLXG = UMIC.@01/14/21 230: ICTO added. RFLXG = PBILI.Method of Collection:: Cath Specimen @01/14/212244: UA W/ MICRO added. RFLXG = UMIC.@01/14/21 230: ICTO added. RFLXG = PBILI.Method of Collection:: Cath Specimen Name Value Range Interpretation Code Description Data Martine rce(s) Supporting Document(s) Bilirubin.total [Presence] in Unspecified specimen [facility] @Reenter manual test result: NEG@by Dipti Chambers at 01/14/212305. ID Date Data Source [id number] 01/14/2021 11:07:00 PM EDT [facility] @01/14/212244: UA W/ MICRO added. RFLXG = UMIC.@01/14/212305: ICTO added. RFLXG = PBILI.Method of Collection:: Cath Specimen @01/14/212244: UA W/ MICRO added. RFLXG = UMIC.@01/14/212305: ICTO added. RFLXG = PBILI.Method of Collection:: Cath Specimen @01/14/212244: UA W/ MICRO added. RFLXG = UMIC.@01/14/212305: ICTO added. RFLXG = PBILI.Method of Collection:: Cath Specimen Name Value Range Interpretation Code Description Data Martine rce(s) Supporting Document(s) Erythrocytes [#/volume] in Urine by Manual count TNTC 0-5 Above high normal [facility] Leukocytes [#/volume] in Urine by Manual count 1-2 /hpf 0-5 [facility] ID Date Data Source [id number] 01/14/2021 09:57:00 PM EDT [facility] Name Value Range Interpretation Code Description Data Martine rce(s) Supporting Document(s) Leukocytes [#/volume] in Blood by Automated count 7.6 10*3/uL 4.45-10 .71 N [facility] Erythrocytes [#/volume] in Blood by Automated count 3.85 10*6/uL 4.3-6.1 Below low normal [facility] Hemoglobin [Moles/volume] in Blood 11.4 g/dL 13-18 Below low no rmal [facility] Hematocrit [Volume Fraction] of Blood by Automated count 36.0 % 42-52 Below low normal [facility] Erythrocyte mean corpuscular volume [Ent itic volume] in Cord blood by Automated count 94 fL 80-96 N [facility] ital Erythrocyte mean corpuscular hemoglobin [Entitic mass] by Au tomated count 30 pg 27-31 N [facility] Erythrocyte mean corpuscular hemoglobin concentration [Mass/volume] in Cord blood 32 g/dL 33-37 Below low normal [facility] Erythrocyte distribution width [Entitic volume] by Automated count 13 % 11-15 N [facility] Platelets [#/volume] in Blood by Automated count 272 10*3/uL 130-472 N [facility] Platelet mean volume [Entitic volume] in Blood 9.7 fL 9.1-13.1 N [facility] Neutrophils/100 leukocytes in Blood by Automated count 70.4 % 41- 77 N [facility] Neutrophils [#/volume] in Blood by Automated count 5.3 U 1.7-7.6 N [facility] Lymphocytes/100 leukocytes in Blood by Automated count 17.2 % 14- 46 N [facility] Lymphocytes [#/volume] in Blood by Automated count 1.3 U 0.6-4.6 N [facility] Monocytes/100 leukocytes in Blood by Automated count 8.9 % 4-12 N [facility] Monocytes [#/volume] in Blood by Automated count 0.7 U 0.2-1.2 N [facility] Eosinophils/100 leukocytes in Blood by Automated count 2.5 % 0-7 N [facility] Eosinophils [#/volume] in Blood by Automated count 0.2 U 0.0-0.5 N [facility] Basophils/100 leukocytes in Blood by Automated count 0.5 % 0.4-1 .3 N [facility] Basophils [#/volume] in Blood by Automated count 0.0 U 0.0-0.2 N [facility] NUCLEATED RED BLOOD CELL 0 % [facility] NUCLEATED RED BLOOD CELL# 0 U [facility] Immature granulocytes [Presence] in Blood by Automated count 0-2 N [facility] Immature granulocytes [#/volume] in Blood by Automated count 0.0 U 0-0.1 [facility] Manual Differential panel - Blood NO [facility] ID Date Data Source [id number] 01/14/2021 10:19:00 PM EDT [facility] Name Value Range Interpretation Code Description Data Martine rce(s) Supporting Document(s) Prothrombin Time (Patient) 10.7 s 9.6-12.3 N [facility] INR 1.0 0.9-1.1 [facility] THE INR IS OPERATIONALLY DEFINED FOR DIVINE SH PLASMA FROMPATIENTS STABILIZED ON ORAL ANTICOAGULANTS.ROUTINE ANTICOAGULANT THERAPY 2.0-3.0RECURRENT SYSTEMIC EMBOLISM/HEART VALVE REPLACEMENT 2.5-3.5 aPTT.lupus sensitive (LA screen) 26.8 s 22.7-31.6 [facility] ID Date Data Source [id number] 01/14/2021 10:31:00 PM EDT [facility] Name Value Range Interpretation Code Description Data Martine rce(s) Supporting Document(s) Urea nitrogen [Mass/volume] in Serum or Plasma 29 mg/dL 9-23 Above high normal [facility] Sodium [Moles/volume] in Serum or Plasma 141 mmol/L 132-146 [facility] Potassium [Moles/volume] in Serum or Plasma 4.6 mmol/L 3.5-5.5 [facility] Chloride [Moles/volume] in Serum or Plasma 110 mmol/L 99-109 Above high normal [facility] Carbon dioxide, total [Moles/volume] in Serum or Plasma 26 mmol/L 20 -31 N [facility] Anion gap in Serum or Plasma 10 mmol/L 8-16 N [facility] Glucose [Mass/volume] in Serum or Plasma 98 mg/dL 74-106 N [facility] Creatinine 1.6 mg/dL 0.5-1.1 Above high normal [facility] Glomerular filtration rate/1.73 sq M.pre dicted [Volume Rate/Area] in Serum or Plasma 43 ml/min ABOVE 60 [facility] ital Calcium [Mass/volume] in Serum or Plasma 8.7 mg/dL 8.5-10.1 [facility] ID Date Data Source [id number] 01/12/2021 06:45:00 PM EDT [facility] ED Physician Documentation NAME: MCKINLEY KEN : 1950 AGE: 70 MR#: [id number] SERVICE DATE: 01/12/[address]: Tino Desir MD PRIMARY CARE DR: Karine Montes De Oca ROOM#: HPI (Adult, General) <Anat Jerome NP - Last Filed: 01/12/21 18:59> General Chief Complaint: Urogenital Stated Complaint: CATHETER FALLING OUT Resident LT, travel outisde home, exposure to hot tubs:: No Time Seen by Provider: 01/12/21 16:29 Source: patient and old records Exam Limitations: no limitations History of Present Illness Narrative: 70 yr old male patient reports catheter is falling out today. denies trauma or fever, other urinary/abdominal symptoms. Indwelling carbone placed 01/10/21 in this Edfor difficulty in urinating. Pt reported today with leg bag and giacomo urine. States that he knows PSA is elevated and is not going to have further treatment as [facility]. Denies rectal bleeding or black stools. History of Present Illness Timing/Duration: 1-3 hours Past Medical History Past Medical History: Nursing Past Medical History Has Been Reviewed Allergies/Home Meds Allergies Allergy/AdvReac Type Severity Reaction Status Date / Time BEE STINGS [BEE STING] Allergy Severe ANGIOEDEMA Verified 01/16/21 20:44 NKDA Allergy Unknown Uncoded 01/16/21 20:44 Home Medications Medication Instructions Recorded Confirmed Last Taken Type Nitroglycerin (Nitrek 0.4 mg TRANSDERMAL PRN #1 err.other 06/18/12 Unknown Rx (Nitroglycerin)) lancing device with lancets #1 pkg 02/08/13 Unknown Rx [Accu-Chek Multiclix Lancet] metformin 500 mg PO BID #60 tab 07/07/13 Unknown Rx omeprazole magnesium 1 tab PO DAILY #30 cap 07/07/13 Unknown Rx Blood Sugar Diagnostic (Test Strip) 1 strip IN DAILY #1 box 08/08/13 Unknown Rx niacin 3 tab PO BID #180 tab 08/08/13 Unknown Rx omega-3 acid ethyl esters [Lovaza] 2 g PO BID #120 cap 08/08/13 Unknown Rx albuterol sulfate [Proair Hfa] 2 puff INHALATION Q4HPRN PRN #1 ea 09/06/13 Unknown History isosorbide mononitrate 20 mg PO TID #90 tab 10/27/13 Unknown History sertraline [Zoloft] 50 mg PO DAILY #30 tab 10/27/13 Unknown History fluticasone propion-salmeterol 1 puff INHALATION BID #1 ea 10/28/13 Unknown History [Advair 250-50 Diskus] ferrous sulfate 324 mg PO BID #60 tab 11/25/13 Unknown History tiotropium bromide [Spiriva] 1 cap INHALATION DAILY #30 cap 11/25/13 Unknown History aspirin 325 mg PO DAILY #30 tab 12/05/13 Unknown History oxycodone-acetaminophen [Percocet 1 - 2 tab PO Q6HPRN PRN #240 tab 12/09/13 Unknown History 7.5-325 Mg Tablet] pregabalin [Lyrica] 50 mg PO BID #60 err.none 12/09/13 Unknown History albuterol sulfate [Proair Hfa] 2 puff INHALATION Q4HPRN PRN #1 ea 12/27/13 Unknown History lisinopril 5 mg PO DAILY #30 tab 01/02/14 Unknown History epinephrine [Epipen 2-Golden] 0.3 mg IM PRN #1 ea 01/12/14 Unknown History sulfamethoxazole-trimethoprim 1 tab PO BID #7 tab 01/10/21 Unknown Rx [Bactrim DS] Bacillus coagulans [Probiotic (B. 1 cell PO BID #60 cap 01/12/21 Unknown Rx coagulans)] ciprofloxacin HCl [Cipro] 500 mg PO BID #20 tab 01/12/21 Unknown Rx tamsulosin [Flomax] 0.4 mg PO DAILY #10 cap 01/15/21 Unknown Rx Medication list updated and reviewed:: Yes Pain Assessment Pain Intensity: 0 ER plan Plan of care and ER treatment: An ER treatment plan was discussed with patient and family, Patient encouraged to ask questions about plan and ER treatments and Patient agrees with ER plan of care PMH (from Triage) <Anat Jerome NP - Last Filed: 01/12/21 18:59> Patient Medical History PMH Reviewed/Updated as Needed: Yes PMH/PSH from Triage: Medical History (Updated 01/17/21 @ 14:40 by David Woodard) Chronic obstructive lung disease (Medical) Coronary Artery Disease (Medical 05/30/09) One srent Depressive disorder (Medical) Diabetes mellitus (Medical) Fat Lesion in liver (Medical) HX:MRSA (Medical) Hyperlipidemia (Medical) Insomnia (Medical) Iron deficiency anemia (Medical) Prostate Problem (Medical 01/2011) PSa 14.9 Severe low back pain (Medical) Tobacco use disorder, continuous (Medical) Surgical History (Updated 12/28/18 @ 11:59 by [email or web address] [place]) History of - surgery (Surgical) (L) repair Stented coronary artery (Surgical 05/30/09) one stent Female History Lactating mother:: No Hx Drug Resistant Infections Hx MRSA: (Methicillin-resistant Staphylococcus aureus): No Hx VRE (Vancomycin-resistant enterococci): No Hx C.Diff: No Hx CRKP: No Hx Other Resistant Infection?: No Isolation: Standard precautions Hx Recent Travel Out of the country within 10 days (where): No Hx Fever: No Hx Fever with a rash?: No Nurse screening for coronavirus: Recent Travel outside the No country (where) Has patient experienced No coronavirus symptoms Social History Does patient have suicidal/homicidal thoughts or ideation?: No Are you in a relationship with/Does anyone hit you, yell/swear at you, steal from you?: No Substance Use Second Hand Smoke Exposure: No Smoking Status: Current every day smoker Tobacco Use Tobacco Products:: Cigarettes 1/2 PPD Hx Chewing Tobacco Use: No Vaccination History Hx/Date of Tetanus, Diphtheria Vaccination: Yes Hx/Date of Influenza Vaccination: No Hx/Date of Pneumococcal Vaccination: No Immunizations Up to Date: Yes Immunizations Comment: no covid vacccine <Tino Desir MD - Last Filed: 01/24/21 05:54> Patient Medical History PMH/PSH from Triage: Medical History (Updated 01/17/21 @ 14:40 by David Woodard) Chronic obstructive lung disease (Medical) Coronary Artery Disease (Medical 05/30/09) One srent Depressive disorder (Medical) Diabetes mellitus (Medical) Fat Lesion in liver (Medical) HX:MRSA (Medical) Hyperlipidemia (Medical) Insomnia (Medical) Iron deficiency anemia (M edical) Prostate Problem (Medical 01/2011) PSa 14.9 Severe low back pain (Medical) Tobacco use disorder, continuous (Medical) Surgical History (Updated 12/28/18 @ 11:59 by [email or web address] [place]) History of - surgery (Surgical) (L) repair Stented coronary artery (Surgical 05/30/09) one stent Hx Recent Travel Nurse screening for coronavirus: Recent Travel outside the No country (where) Has patient experienced No coronavirus symptoms PFSH <Anat Jerome NP - Last Filed: 01/12/21 18:59> Medical History Chronic obstructive lung disease Coronary Artery Disease (05/30/09) Depressive disorder Diabetes mellitus Fat Lesion in liver HX:MRSA Hyperlipidemia Insomnia Iron deficiency anemia Prostate Problem ( 01/2011) Severe low back pain Tobacco use disorder, continuous Surgical History History of - surgery Stented coronary artery (05/30/09) Family History Mother Diabetes Hypertension Obesity Father No problems noted. Sister No problems noted. Social History Does the Patient have a Healthcare Proxy: Yes (-Lis Ken) Does Patient have a DNR?: No Does Patient have a Living Will?: No Hx Recent Travel (where): No Smoking Status: Current every day smoker Sickle cell No Sickle Cell Screening:: Not indicated ROS <Anat Jerome NP - Last Filed: 01/12/21 18:59> Review of Systems Constitutional: Denies fever, chills, sweats, weakness, weight loss or weight gain Eyes: Denies vision change, eye discharge/drng, redness, conjunctiva inflammation, floaters or wears glasses ENT: Denies mouth pain, mouth swelling, dry mouth, ear pain, hearing loss, ear discharge, nasal pain, nasal congestion, epistaxis, throat pain, throat swelling, hoarseness, pain upon swallowing or recent head trauma Respiratory: Denies cough, sputum, orthopnea, SOB w/exertion rest, SOB with excertion, SOB at rest, SOB, stridor or wheezing Cardiovascular: Denies chest pain, palpitations, orthopnea, hypertension, edema, syncope or known heart murmurs Gastrointestinal: Reports No Symptoms/Complaints Genitourinary-Male: Reports prostate issue and other (reports that he feels as if catheter is falling out); Denies dysuria, frequency, incontinence or hematuria Musculoskeletal: Denies neck pain, arm pain, back pain, thigh or calf cramps, muscle weakness, muscle tenderness, joint swelling, sciatica, muscle pain or joint pain Skin/Breasts: Denies rash, lesions, hives, pruritus, bruising, change in color, sensitivity to sun, change in hair/nails, nipple discharge or hair loss Neurologic: Denies weakness, numbness, headache, incoordination, change in speech, confusion, dizziness, vertigo, lightheadedness, seizures or memory loss Psychiatric: Reports No Symptoms/Complaints Endocrine: Reports No Symptoms/Complaints Hematological/Lymphatic: Reports No Symptoms/Complaints Allergic/Immunologic: Reports No Symptoms/Complaints Physical Exam <Anat eJrome NP - Last Filed: 01/12/21 18:59> General Limitations: no limitations General appearance: alert and in no apparent distress Head Head exam: Present atraumatic, normocephalic and normal inspection Eye Eye exam: Present normal a pperance, PERRL and EOMI; Absent nystagmus Pupils: Present normal accommodation ENT ENT exam: Present normal exam, normal orophraynx, mucous membranes moist and TM's normal bilaterally Neck Neck exam: Present normal inspection, full ROM and supple; Absent tenderness or lymphadenopathy Respiratory Respiratory exam: Present normal lung sounds bilaterally; Absent respiratory distress, wheezes, rales, rhonchi, stridor or accessory muscle use Cardiovascular Cardiovascular Exam: Present regular rate, normal rhythm and no murmur GI/Abdominal GI/Abdominal exam: Present Abd soft, bowel sounds present all quadrents; Absent distended, tenderness or guarding Rectal Rectal exam: Present normal inspection, normal rectal tone and heme (-) stool exam: Present normal inspection and circumcision; Absent testicular tenderness, urethral discharge or scrotal swelling External exam: Present normal external exam Extremities Exam Extremities exam: Present normal inspection and Full ROM without tenderness, capillary refill brisk; Absent pedal edema Back Exam Back exam: Present normal inspection and full ROM; Absent tenderness, CVA tenderness (R), CVA tenderness (L), paraspinal tenderness or vertebral tenderness Neurological Exam Neurological exam: Present alert, altered, oriented X3, CN II-XII intact and normal gait Psychiatric Psychiatric exam: Present normal affect and normal mood Skin Skin exam: Present warm, dry, intact and normal color; Absent rash, cyanosis or diaphoretic Vital Signs Vital Signs: Vital Signs 01/12/21 17:00 Temperature 97.7 F Pulse Rate 69 Respiratory Rate 18 Blood Pressure 124/68 O2 Sat by Pulse Oximetry 96 <Tino Desir MD - Last Filed: 01/24/21 05:54> Vital Signs Vital Signs: Vital Signs 01/12/21 17:00 Temperature 97.7 F Pulse Rate 69 Respiratory Rate 18 Blood Pressure 124/68 O2 Sat by Pulse Oximetry 96 MDM (comprehensive) <Anat Jerome NP - Last Filed: 01/12/21 18:59> Lab Data Labs: 01/12/21 16:52 01/12/21 16:52 Microbiology 01/12/21 16:52 Venous blood Blood Culture - Final No growth. 01/12/21 16:52 Venous blood Blood Culture - Final No growth. 01/12/21 17:50 Urine,cath Urine Culture - Final Medical Decision Making Free Text/Narative:: labs and condition discussed with Dr. Patten. Impression: UTI. will discharge home with 10 days of cipro after 1 gram rocephin im here. carbone to drain and follow up with pcp as scheduled. Differential Diagnosis Differential Diagnosis: abdominal obstructiooon/inguinal hernia/rectal bleed Core Measures Measure Exclusions: not indicated NEXUS Criteria Focal neurologic deficit present?: No Midline spinal tenderness present?: No Altered level of consciousness present?: No Intoxication present?: No Distracting injury present?: No <Tino Desir MD - Last Filed: 01/24/21 05:54> Lab Data Labs: 01/12/21 16:52 01/12/21 16:52 Microbiology 01/12/21 16:52 Venous blood Blood Culture - Final No growth. 01/12/21 16:52 Venous blood Blood Culture - Final No growth. 01/12/21 17:50 Urine,cath Urine Culture - Final Critical Care Time <Anat Jerome NP - Last Filed: 01/12/21 18:59> Critical Care Time Critical Care Time: No Procedures (comprehensive) <Anat Jerome NP - Last Filed: 01/12/21 18:59> Stool Hemoccult Procedural Steps Taken: stool placed in appropriate test area, developer placed on stool and control areas and controls appropriately positive and negative Hemoccult result: negative Plan <Anat Jerome NP - Last Filed: 01/12/21 18:59> Plan Plan of care: Pain control discussed with patient, Follow up appointments discussed, Patient encouraged to ask questions about plan, Patient agrees with plan of care and Person receiving instructions verbalizes understanding of plan Patient specific education resources provided: Yes Visit Medications Administered ED medications:: Medications Discontinued Medications Generic Name Dose Route Start Last Admin Trade Name Freq PRN Reason Stop Dose Admin Ceftriaxone Sodium 1,000 mg/ 0 mg 01/12/21 18:44 01/12/21 18:59 Lidocaine HCl 2.1 ml IM 01/12/21 18:45 1,000 mg 1T ONE Administration <Tino Desir MD - Last Filed: 01/24/21 05:54> Visit Medications Administered ED medications:: Medications Discontinued Medications Generic Name Dose Route Start Last Admin Trade Name Freq PRN Reason Stop Dose Admin Ceftriaxone Sodium 1,000 mg/ 0 mg 01/12/21 18:44 01/12/21 18:59 Lidocaine HCl 2.1 ml IM 01/12/21 18:45 1,000 mg 1T ONE Administration Discharge Plan Admission/Discharge Dx Primary DC Diagnosis: UTI ED Provider: Tino Desir ED Midlevel Provider: Anat Jerome ED Status: Discharged Time Seen by Provider: 01/12/21 16:29 Triaged At: 01/12/21 14:15 Condition Condition: Good Discharge Detail Disposition: Home, Self-Care Med Rec New Prescriptions: New ciprofloxacin HCl [Cipro] 500 mg tablet 500 mg PO BID Qty: 20 RF: 0 Probiotic (B. coagulans) 10 billion cell capsule,delayed release(DR/EC) 1 cell PO BID Qty: 60 RF: 0 No Action sulfamethoxazole-trimethoprim [Bactrim DS] 800-160 mg tablet 1 tab PO BID Qty: 7 RF: 0 tamsulosin [Flomax] 0.4 mg capsule 0.4 mg PO DAILY Qty: 10 RF: 0 Nitroglycerin (Nitrek (Nitroglycerin)) 0.4 mg Transdermal PRN Qty: 1 RF: 0 (DME) lancing device with lancets [Accu-Chek Multiclix Lancet] Kit 1 ea miscellaneous DAILY Qty: 1 RF: 5 metformin 500 mg tablet 500 mg PO BID Qty: 60 RF: 5 omeprazole magnesium 20 mg capsule,delayed release(DR/EC) 1 tab PO DAILY Qty: 30 RF: 5 Blood Sugar Diagnostic (Test Strip) 1 strip IN DAILY Qty: 1 RF: 5 niacin 500 mg tablet 3 tab PO BID Qty: 180 RF: 5 omega-3 acid ethyl esters [Lovaza] 1 gram capsule 2 g PO BID Qty: 120 RF: 5 albuterol sulfate [ProAir HFA] 8.5 GM HFA aerosol inhaler 2 puff Inhalation Q4HPRN PRN (Reason: Shortness Of Breath) Qty: 1 RF: 5 isosorbide mononitrate 20 MG tablet 20 mg PO TID Qty: 90 RF: 5 sertraline [Zoloft] 50 MG tablet 50 mg PO DAILY Qty: 30 RF: 5 fluticasone propion-salmeterol [Advair Diskus] 1 EACH blister with device 1 puff Inhalation BID Qty: 1 RF: 5 Spiriva with HandiHaler 18 MCG capsule, w/inhalation device 1 cap Inhalation DAILY Qty: 30 RF: 5 ferrous sulfate 324 MG tablet,delayed release (DR/EC) 324 mg PO BID Qty: 60 RF: 11 aspirin 325 MG tablet 325 mg PO DAILY Qty: 30 RF: 5 oxycodone- acetaminophen [Percocet] 1 EACH tablet 1 - 2 tab PO Q6HPRN PRN (Reason: SOB) Qty: 240 RF: 0 pregabalin [Lyrica] 50 MG capsule 50 mg PO BID Qty: 60 RF: 0 albuterol sulfate [ProAir HFA] 8.5 GM HFA aerosol inhaler 2 puff Inhalation Q4HPRN PRN (Reason: SOB) Qty: 1 RF: 0 lisinopril 5 MG tablet 5 mg PO DAILY Qty: 30 RF: 0 epinephrine [EpiPen] 0.3 MG/0.3 ML auto-injec tor 0.3 mg IM PRN Qty: 1 RF: 0 Discharge Education Printouts: Urinary Tract Infection in Men (ED) Follow Up Visit/Referrals: KARINE MONTES DE OCA [Primary Care Provider] - Diet:: general Discharge Problem: Urinary tract infectious disease UTI Medications Medication reconciliation performed by provider at discharge: Yes Follow Up Care/Instructions Diet/Activity/Wound Care..: general diet/no activity restrictions Quality Indicators Conditions Present During Course of Hospitalization: None Apply *Discharge Patient* Discharge Orders: Discharge Order (Routine); Ordered 01/12/21 Ordered By: Anat Jerome Discharge Date/Time: 01/12/21 19:11 Interventions Interventions: ED Discharge Instructions Last Done: 01/12/21 19:11 ED Urogenital Last Done: 01/12/21 17:00 Report Signers: <Electronically signed by Anat Jerome NP> Anat Jerome NP 01/12/21 5969 Anat Jerome NP SIGNATURE DA Report Cosigners: <<Signature on File>> Tino Desir MD 01/24/21 0554 <Electronically signed by Tino Desir MD> Tino Desir MD 01/24/21 0554 D: [facility] 01/12/211844 T: [facility] 01/12/211844 CC: Karine Montes De Oca Name Value Range Interpretation Code Description Data Martine rce(s) Supporting Document(s) ID Date Data Source [id number] 01/12/2021 06:29:00 PM EDT [facility] Reason for ordering culture: Abnormal fi ndings UA@01/12/211814: UA W/ MICRO added. RFLXG = UMIC CIF.Method of Collection:: Voided @01/12/211828: Urine culture added. RFL XG = CULT.ADD. Reason for ordering culture: Abnormal fi ndings UA@01/12/211814: UA W/ MICRO added. RFLXG = UMIC CIF.Method of Collection:: Voided Name Value Range Interpretation Code Description Data [facility] rce(s) Supporting Document(s) Color of Urine [facility] Appearance of Urine CLEAR [facility] pH of Urine by Test strip 5.0 5-8 [facility] Specific gravity of Urine by Refractometry 1.022 1.005-1.030 [facility] Leukocyte esterase [Presence] in Urine by Test strip NEGATIVE [facility] (app[facility] to [facility] Culture has been added to this specimen per established criteria Nitrite [Presence] in Urine by Test strip NEGATIVE [facility] Protein [Presence] in Urine by Test strip NEGATIVE Above high normal [facility] @DO MICRO!!!! Glucose [Mass/volume] in Urine by Automated test strip NEGATIVE NEG ATIVE [facility] Ketones [Presence] in Urine by Test strip NEGATIVE [facility] Urobilinogen [Presence] in Urine 0.2-1 EU/dl [facility] Bilirubin.total [Presence] in Urine by Automated test strip NEGATIVE [facility] Erythrocytes [#/volume] in Urine by Test strip MODERATE N EGATIVE Abnormal (applies to non-numeric results) [facility]A Culture has been added to this specimen per established criteria URINE MICROSCOPIC? (CIF) Microscopic Added [facility] ID Date Data Source [id number] 01/14/2021 06:45:00 AM EDT [facility] Reason for ordering culture: Abnormal fi ndings UA@01/12/21 1815: UA W/ MICRO added. RFLXG = UMIC CIF.Method of Collection:: Voided @01/12/21 1829: Urine culture added. RFL XG = CULT.ADD. Reason for ordering culture: Abnormal fi ndings UA@01/12/21 1815: UA W/ MICRO added. RFLXG = UMIC CIF.Method of Collection:: Voided Name Value Range Interpretation Code Description Data Martine rce(s) Supporting Document(s) Urine culture result No growth [facility] ID Date Data Source [id number] 01/12/2021 06:29:00 PM EDT [facility] Reason for ordering culture: Abnormal fi ndings UA@01/12/21 1815: UA W/ MICRO added. RFLXG = UMIC CIF.Method of Collection:: Voided @01/12/211828: Urine culture added. RFL XG = CULT.ADD. Reason for ordering culture: Abnormal fi ndings UA@01/12/21 1815: UA W/ MICRO added. RFLXG = UMIC CIF.Method of Collection:: Voided Name Value Range Interpretation Code Description Data Martine rce(s) Supporting Document(s) Erythrocytes [#/volume] in Urine by Manual count 6-10 /hpf 0-5 Above high normal [facility] Leukocytes [#/volume] in Urine by Manual count 3-5 /hpf 0-5 [facility] Cells [Type] in Urine sediment by Light microscopy [facility] Bacteria [Presence] in Urine sediment by Light microscopy NEGATIVE Above high normal [facility] Mucus [Presence] in Urine sediment by Light microscopy [facility] ID Date Data Source [id number] 01/12/2021 04:59:00 PM EDT [facility] Name Value Range Interpretation Code Description Data Martine rce(s) Supporting Document(s) Leukocytes [#/volume] in Blood by Automated count 10.3 10*3/uL 4.45-1 0.71 N [facility] Erythrocytes [#/volume] in Blood by Automated count 3.89 10*6/uL 4.3-6.1 Below low normal [facility] Hemoglobin [Moles/volume] in Blood 11.8 g/dL 13-18 Below low no rmal [facility] Hematocrit [Volume Fraction] of Blood by Automated count 36.7 % 42-52 Below low normal [facility] Erythrocyte mean corpuscular volume [Ent itic volume] in Cord blood by Automated count 94 fL 80-96 N [facility] ital Erythrocyte mean corpuscular hemoglobin [Entitic mass] by Au tomated count 30 pg 27-31 N [facility] Erythrocyte mean corpuscular hemoglobin concentration [Mass/volume] in Cord blood 32 g/dL 33-37 Below low normal [facility] Erythrocyte distribution width [Entitic volume] by Automated count 13 % 11-15 N [facility] Platelets [#/volume] in Blood by Automated count 249 10*3/uL 130-472 N [facility] Platelet mean volume [Entitic volume] in Blood 10.1 fL 9.1-13.1 N [facility] Neutrophils/100 leukocytes in Blood by Automated count 77.3 % 41-77 Above high normal [facility] Neutrophils [#/volume] in Blood by Automated count 8.0 U 1.7-7.6 Above high normal [facility] Lymphocytes/100 leukocytes in Blood by Automated count 12.3 % 14-46 Below low normal [facility] Lymphocytes [#/volume] in Blood by Automated count 1.3 U 0.6-4.6 N [facility] Monocytes/100 leukocytes in Blood by Automated count 7.6 % 4-12 N [facility] Monocytes [#/volume] in Blood by Automated count 0.8 U 0.2-1.2 N [facility] Eosinophils/100 leukocytes in Blood by Automated count 1.7 % 0-7 N [facility] Eosinophils [#/volume] in Blood by Automated count 0.2 U 0.0-0.5 N [facility] Basophils/100 leukocytes in Blood by Automated count 0.5 % 0.4-1 .3 N [facility] Basophils [#/volume] in Blood by Automated count 0.1 U 0.0-0.2 N [facility] NUCLEATED RED BLOOD CELL 0 % [facility] NUCLEATED RED BLOOD CELL# 0 U [facility] Immature granulocytes [Presence] in Blood by Automated count 0-2 N [facility] Immature granulocytes [#/volume] in Blood by Automated count 0.1 U 0-0.1 N [facility] Manual Differential panel - Blood NO [facility] ID Date Data Source [id number] 01/17/2021 04:55:00 PM EDT [facility] Name Value Range Interpretation Code Description Data Martine rce(s) Supporting Document(s) Bacteria identified in Blood by Culture [facility] NO GROWTH AFTER 5 DAYS ID Date Data Source [id number] 01/12/2021 05:27:00 PM EDT [facility] Special Instructions: Lab may order repe at test if initial test elevatedPhysician If elevated, reflex second test in 4-6 hrs Name Value Range Interpretation Code Description Data Martine rce(s) Supporting Document(s) Urea nitrogen [Mass/volume] in Serum or Plasma 39 mg/dL 9-23 Above high normal [facility] Sodium [Moles/volume] in Serum or Plasma 140 mmol/L 132-146 N [facility] Potassium [Moles/volume] in Serum or Plasma 4.1 mmol/L 3.5-5.5 [facility] Chloride [Moles/volume] in Serum or Plasma 109 mmol/L 99-109 [facility] Carbon dioxide, total [Moles/volume] in Serum or Plasma 26 mmol/L 20 -31 N [facility] Anion gap in Serum or Plasma 9 mmol/L 8-16 N [facility] Glucose [Mass/volume] in Serum or Plasma 110 mg/dL 74-106 Above high normal [facility] Creatinine 1.8 mg/dL 0.5-1.1 Above high normal [facility] Glomerular filtration rate/1.73 sq M.pre dicted [Volume Rate/Area] in Serum or Plasma 37 ml/min ABOVE 60 [facility] ital Alanine aminotransferase [Enzymatic acti vity/volume] in Serum or Plasma by With P-5'-P 21 U/L 10-49 N [facility] ital Aspartate aminotransferase [Enzymatic ac tivity/volume] in Serum or Plasma by With P-5'-P 16 U/L 0-33 N [facility] pital Alkaline phosphatase [Enzymatic activity/volume] in Serum or Plasma 90 U/L 45-129 N [facility] Calcium [Mass/volume] in Serum or Plasma 9.1 mg/dL 8.5-10.1 [facility] Bilirubin.total [Mass/volume] in Serum or Plasma 0.2 mg/dL 0.3-1.2 Below low normal [facility] Albumin [Mass/volume] in Serum or Plasma by Bromocresol purple (BCP) dye binding method 3.7 g/dL 3.2-4.8 N [facility] ital Protein [Mass/volume] in Serum or Plasma 7.6 g/dL 5.7-8.2 N [facility] ID Date Data Source [id number] [facility]12[facility]21 [facility]: Lab may order repe at test if initial test elevatedPhysician If elevated, reflex second test in 4-6 hrs Name Value Range Interpretation Code Description Data Martine rce(s) Supporting Document(s) Lactic w Rfx (if elevated) 1.1 mmol/L 0.5-2.0 [facility] ID Date Data Source [id number] 01/10/2021 07:01:00 AM EDT [facility] [address] [place] [address] [phone] NAME SEX PT STATUS ACCOUNT NUMBER MCKINLEY KEN SR [facility] [id number] ORDERING PHYSICIAN LOCATION MEDICAL RECORD NO. Donny Gambino MD ER [id number] ATTENDING PHYSICIAN DATE OF DATE OF EXAM/TIME KARINE MONTES DE OCA 1950 01/10/21538 TYPE / EXAM CT Abd/pel w/o contrast REASON FOR EXAM abdom flank pain cant void + AAA eval Clinical History/Indication for Exam: abdom flank pain cant void + AAA eval CT ABDOMEN AND PELVIS WITHOUT INTRAVENOUS CONTRAST INDICATION: abdom flank pain cant void + AAA eval TECHNIQUE: Axial computed tomography images of the abdomen and pelvis without intravenous contrast. Sagittal and coronal reformatted images were created and reviewed. This CT exam was performed using one or more of the following dose reduction techniques: automated exposure control,adjustment of the mA and/or kV according to patient size, and/or use of iterative reconstruction technique. COMPARISON: No rel evant prior studies available. FINDINGS: Lung bases: Unremarkable. No mass. No consolidation. Heart: Small pericardial effusion. Mediastinum: Moderate size hiatal hernia. ABDOMEN: Liver: Unremarkable. Gallbladder and bile ducts: Unremarkable. No calcified stones. No ductal dilation. Pancreas: Unremarkable. No ductal dilation. Spleen: Unremarkable. No splenomegaly. Adrenals: Unremarkable. No mass. Kidneys and ureters: Right kidney demonstrates mild hydronephrosis and hydroureter. Left kidney demonstrates hydronephrosis and hydroureter. The left kidney demonstrates perinephric stranding. Stomach and bowel: Copious amount of stool is appreciated in the cecum and ascending colon suggestive of constipation. Diverticulosis of the sigmoid colon with no evidence of diverticulitis. No obstruction. PELVIS: Appendix: No findings to suggest acute appendicitis. Bladder: The bladder is distended. Urinary retention secondary to bladder outlet obstruction is of differential diagnostic consideration. Reproductive: Prostate measures 5.9 cm x 6.3 cm. Bladder outlet obstruction secondary to prostatehyperplasia is of differential diagnostic consideration. ABDOMEN and PELVIS: Intraperitoneal space: Unremarkable. No free air. No significant fluid collection. Bones/joints: No acute fracture. No dislocation. Soft tissues: Unremarkable. Vasculature: Infrarenal abdominal aortic aneurysm measuring 3.4 cm in diameter. Lymph nodes: Unremarkable. No enlarged lymph nodes. IMPRESSION: 1. Prostate measures 5.9 cm x 6.3 cm. The bladder is markedly distended. Bladder outlet obstruction secondary to prostate hyperplasia is of differential diagnostic consideration. 2. Bilateral hydronephrosis with bilateral hydroureter secondary to bladder outlet obstruction. 3. The left kidney demonstrates perinephric stranding. A ruptured calyx is of differential diagnostic consideration. Pyelonephritis involving the left kidney cannot be excluded. 4. Infrarenal abdominal aortic aneurysm measuring 3.4 cm in diameter. Automatic exposure control was used as a dose lowering technique. REPORT SIGNATURE ON FILE 01/10/2021 (07:01 Eastern Time ) Signed by: Ezequiel Pelletier M.D. Reported By Ezequiel Pelletier MD on 01/10/21700 Signed By Ezequiel Pelletier MD on 01/10/21700 Date Time CC: Ezequiel Pelletier M.D.; Karine Montes De Oca Techn: PALHE Trans Dt/Tm: Trans by: DT Prt Dt/Tm: : Total DLP = 449.00 mGy-cm : Total Radiation Dose = 6.7350 mSv Lifetime Dose: 6.7350 mSv Name Value Range Interpretation Code Description Data Martine rce(s) Supporting Document(s) ID Date Data Source [id number] 01/10/2021 06:58:00 AM EDT [facility] [address] [place] [address] [phone] NAME SEX PT STATUS ACCOUNT NUMBER MCKINLEY KEN [facility] ER [id number] ORDERING PHYSICIAN LOCATION MEDICAL RECORD NO. Donny Gambino MD ER [id number] ATTENDING PHYSICIAN DATE OF DATE OF EXAM/TIME KARINE MONTES DE OCA 1950 01/[birth year]/21539 TYPE / EXAM Xray Chest One View REASON FOR EXAM abdominal pain Clinical History/Indication for Exam: abdominal pain RADIOGRAPH OF THE CHEST 1 VIEW INDICATION: abdominal pain COMPARISON: No relevant prior studies available. FINDINGS: Lungs: Unremarkable. No consolidation. Pleural space: Unremarkable. No pneumothorax. Heart: Unremarkable. No cardiomegaly. Mediastinum: Unremarkable. Bones/joints: Unremarkable. IMPRESSION: Normal chest x-ray. REPORT SIGNATURE ON FILE 01/10/2021 (06:58 Eastern Time ) Signed by: Chepe Magdaleno M.D. Reported By Chepe Magdaleno MD on 01/10/21657 Signed By Chepe Magdaleno MD on 01/10/21657 Date Time CC: Chepe Magdaleno MD; Karine Montes De Oca Techn: PALHE Trans Dt/Tm: Trans by: DT Prt Dt/Tm: : Total DLP = 0.00 mGy-cm Fluoroscopy Time (in secs): Name Value Range Interpretation Code Description Data Martine rce(s) Supporting Document(s) ID Date Data Source [id number] 01/10/2021 06:51:00 AM EDT [facility] Reason for ordering culture: Abnormal fi ndings UAMethod of Collection:: Cath Specimen Name Value Range Interpretation Code Description Data Martine rce(s) Supporting Document(s) Color of Urine [facility] Appearance of Urine CLEAR [facility] pH of Urine by Test strip 6.0 5-8 [facility] Specific gravity of Urine by Refractometry 1.013 1.005-1.030 [facility] Leukocyte esterase [Presence] in Urine by Test strip NEGAT GUDELIA [facility] Nitrite [Presence] in Urine by Test strip NEGATIVE [facility] Protein [Presence] in Urine by Test strip NEGATIVE [facility] Glucose [Mass/volume] in Urine by Automated test strip NEGATIVE NEG ATIVE [facility] Ketones [Presence] in Urine by Test strip NEGATIVE [facility] Urobilinogen [Presence] in Urine 0.2-1 EU/dl [facility] Bilirubin.total [Presence] in Urine by Automated test strip NEGATIVE [facility] Erythrocytes [#/volume] in Urine by Test strip NEGATIVE NEGATIVE [facility] URINE MICROSCOPIC? (CIF) NO [facility] ID Date Data Source [id number] 01/10/2021 06:01:00 AM EDT [facility] ED Physician Documentation NAME: MCKINLEY KEN : 1950 AGE: 70 MR#: [id number] SERVICE DATE: 01/10/[address]: Donny Gambino MD PRIMARY CARE DR: Karine Montes De Oca ROOM#: HPI (Adult, General) General Chief Complaint: GI Stated Complaint: BACK PAIN, ABDOMINAL PAIN, TROUBLE URINATING Time Seen by Provider: 01/10/21 05:29 History of Present Illness Narrative: 70-year-old white male complaining of inability to void since noon yesterday now with increasing suprapubic and bilateral flank pain to the point of severity. Denies history of kidney stones or prostate problems or known AAA denies any current fever or chills or earlier dysuria , no vomiting diarrhea constipation or other pain or symptoms No chest pain cough or shortness of breath Last recent [facility] PSA = 21 says pt ROS otherwise acutely noncontributory PMH PSH and EMR data is appreciated , , Past Medical History Past Medical History: Nursing Past Medical History Has Been Reviewed Allergies/Home Meds Allergies Allergy/AdvReac Type Severity Reaction Status Date / Time BEE STINGS [BEE STING] Allergy Severe ANGIOEDEMA Verified 01/10/21 05:24 NKDA Allergy Unknown Uncoded 01/10/21 05:24 Home Medications Medication Instructions Recorded Confirmed Last Taken Type Nitroglycerin (Nitrek 0.4 mg TRANSDERMAL PRN #1 err.other 06/18/12 Unknown Rx (Nitroglycerin)) lancing device with lancets #1 pkg 02/08/13 Unknown Rx [Accu-Chek Multiclix Lancet] metformin 500 mg PO BID #60 tab 07/07/13 Unknown Rx omeprazole magnesium 1 tab PO DAILY #30 cap 07/07/13 Unknown Rx Blood Sugar Diagnostic (Test Strip) 1 strip IN DAILY #1 box 08/08/13 Unknown Rx niacin 3 tab PO BID #180 tab 08/08/13 Unknown Rx omega-3 acid ethyl esters [Lovaza] 2 g PO BID #120 cap 08/08/13 Unknown Rx albuterol sulfate [Proair Hfa] 2 puff INHALATION Q4HPRN PRN #1 ea 09/06/13 Unknown History isosorbide mononitrate 20 mg PO TID #90 tab 10/27/13 Unknown History sertraline [Zoloft] 50 mg PO DAILY #30 tab 10/27/13 Unknown History fluticasone propion-salmeterol 1 puff INHALATION BID #1 ea 10/28/13 Unknown History [Advair 250-50 Diskus] ferrous sulfate 324 mg PO BID #60 tab 11/25/13 Unknown History tiotropium bromide [Spiriva] 1 cap INHALATION DAILY #30 cap 11/25/13 Unknown History aspirin 325 mg PO DAILY #30 tab 12/05/13 Unknown History oxycodone-acetaminophen [Percocet 1 - 2 tab PO Q6HPRN PRN #240 tab 12/09/13 Unknown History 7.5-325 Mg Tablet] pregabalin [Lyrica] 50 mg PO BID #60 err.none 12/09/13 Unknown History albuterol sulfate [Proair Hfa] 2 puff INHALATION Q4HPRN PRN #1 ea 12/27/13 Unknown History lisinopril 5 mg PO DAILY #30 tab 01/02/14 Unknown History epinephrine [Epipen 2-Golden] 0.3 mg IM PRN #1 ea 01/12/14 Unknown History sulfamethoxazole-trimethoprim 1 tab PO BID #7 tab 01/10/21 Unknown Rx [Bactrim DS] Medication list updated and reviewed:: Yes Pain Assessment Pain Location: As above- cramping sharp -localized-8 out of 10 now- ER plan Plan of care and ER treatment: Patient encouraged to ask questions about plan and ER treatments and Patient agrees with ER plan of care Plan: see ED orders PMH (from Triage) Patient Medical History PMH Reviewed/Updated as Needed: Yes PMH/PSH from Triage: Medical History Chronic obstructive lung disease (Medical) Coronary Artery Disease (Medical 05/30/09) One srent Depressive disorder (Medical) Diabetes mellitus (Medical) Fat Lesion in liver (Medical) HX:MRSA (Medical) Hyperlipidemia (Medical) Insomnia (Medical) Iron deficiency anemia (Medical) Prostate Problem (Medical 01/2011) PSa 14.9 Severe low back pain (Medical) Tobacco use disorder, continuous (Medical) Surgical History (Updated 12/28/18 @ 11:59 by [email or web address] [place]) History of - surgery (Surgical) (L) repair Stented coronary artery (Surgical 05/30/09) one stent Hx Drug Resistant Infections Hx Other Resistant Infection?: No Isolation: Standard precautions Hx Recent Travel Out of the country within 10 days (where): No Hx Fever: No Hx Fever with a rash?: No Nurse screening for coronavirus: Recent Travel outside the No country (where) Has patient experienced No coronavirus symptoms Social History Does patient have suicidal/homicidal thoughts or ideation?: No Are you in a relationship with/Does anyone hit you, yell/swear at you, steal from you?: No Substance Use Second Hand Smoke Exposure: No Vaccination History Hx/Date of Tetanus, Diphtheria Vaccination: No Hx/Date of Influenza Vaccination: No Hx/Date of Pneumococcal Vaccination: No Immunizations Up to Date: No (pt states "i don't get those, last time i ended up in the hospital") PFSH Medical History Chronic obstructive lung disease Coronary Artery Disease (05/30/09) Depressive disorder Diabetes mellitus Fat Lesion in liver HX:MRSA Hyperlipidemia Insomnia Iron deficiency anemia Prostate Problem ( 01/2011) Severe low back pain Tobacco use disorder, continuous Surgical History (Updated 12/28/18 @ 11:59 by [email or web address] [place]) History of - surgery Stented coronary artery (05/30/09) Family History Mother Diabetes Hypertension Obesity Father No problems noted. Sister No problems noted. Social History Does the Patient have a Healthcare Proxy: No Does Patient have a DNR?: No Does Patient have a Living Will?: No Hx Recent Travel (where): No Sickle cell Sickle cell susceptibility: N/A ROS Review of Systems ROS Narrative: See HPI ; other data patient to uncomfortable to reliably and properly answer at this time Physical Exam General General appearance: alert, anxious and in distress Head Head exam: Present atraumatic, normocephalic and normal inspection Eye Eye exam: Present normal apperance, PERRL and EOMI; Absent scleral icterus Pupils: Present normal accommodation ENT ENT exam: Present normal exam, normal orophraynx and mucous membranes moist Neck Neck exam: Present normal inspection and supple; Absent tenderness, meningismus or lymphadenopathy Respiratory Respiratory exam: Present normal lung sounds bilaterally and decreased breath sounds; Absent respiratory distress or prolonged expiratory Cardiovascular Cardiovascular Exam: Present regular rate, normal rhythm, normal heart sounds and no murmur; Absent rubs GI/Abdominal GI/Abdominal exam: Present soft, normal bowel sounds and organomegaly (bladder - but scanner = 150 - 200 ml ); Absent guarding, rebound, rigid or pulsatile mass Rectal Rectal exam: Present deferred exam: Present normal inspection and other (deferred); Absent testicular tenderness Extremities Exam Extremities exam: Present full ROM and capillary refill brisk; Absent tenderness or calf tenderness Back Exam Back exam: Present normal inspection, CVA tenderness (R) and CVA tenderness (L); Absent paraspinal tenderness or vertebral tenderness Neurological Exam Neurological exam: Present alert, oriented X3, CN II-XII intact and normal gait; Absent motor sensory deficit Psychiatric Psychiatric exam: Present normal affect, agitated and anxious Skin Skin exam: Present warm and dry; Absent rash or cyanosis Vital Signs Vital Signs: Vital Signs 01/10/21 05:06 Temperature 98.0 F Pulse Rate 78 Respiratory Rate 20 Blood Pressure 148/78 O2 Sat by Pulse Oximetry 98 MDM (compreh ensive) Lab Data Labs: 01/10/21 05:55 01/10/21 05:55 Laboratory Results Last 24 hours 01/10/21 05:55: PT 10.5, INR 1.0, PTT (Edi) 26.4 01/10/21 05:55: WBC 16.9 H, RBC 4.53, Hgb 13.5, Hct 41.4 L, MCV 91, MCH 30, MCHC 33, RDW 13, Plt Count 290, MPV 10.3, Immature Gran % (Auto) 0.5, Neut % (Auto) 90.5 H, Lymph % (Auto) 3.9 L, [place] % (Auto) 4.8, Eos % (Auto) 0.1, Baso % (Auto) 0.2 L, Lymph # (Auto) 0.7, Abs Immat Gran (auto) 0.1, Add Manual Diff Manual diff added, Total Counted 100, Neutrophils (Manual) 87 H, Absolute Neutrophils 15.3 H, Lymphocytes (Manual) 8 L, Monocytes (Manual) 5, Monocytes # 0.8, Absolute Eosinophils 0.0, Absolute Basophils 0.0, Platelet Estimate Appears normal, RBC Morphology Appears normal 01/10/21 05:55: Sodium 133, Potassium 4.5, Chloride 101, Carbon Dioxide 24, Anion Gap 13, BUN 29 H, Creatinine 1.8 H, GFR Calculation 37, Glucose 127 H, Calcium 9.6, Total Bilirubin 0.6, AST 22, ALT 30, Alkaline Phosphatase 103, Troponin I Less than 0.015, Serum Total Protein 8.5 H, Albumin 4.4, Amylase 90, Lipase 78 01/10/21 05:55: Lactic Acid 1.2 01/10/21 06:24: Urine Color Yellow, Urine Appearance Clear, Urine pH 6.0, Ur Specific Larsen 1.013,Urine Protein Negative, Urine Ketones Negative, Urine Blood Negative, Urine Nitrate Negative, Urine Bilirubin Negative, Urine Urobilinogen 0.2 eu/dl, Ur Leukocyte Esterase Negative, Add Ur Microanalysis No, Urine Glucose Negative EKG Data -: EKG Interpreted by Me (79 rsr nsst nl axis intervals ) Radiology Data Radiology impressions: CXR CT ABD PL is pending at [facility] Medical Decision Making Free Text/Narative:: carbone UO = 800 nl clear Plan Visit Medications Administered ED medications:: Medications Discontinued Medications Generic Name Dose Route Start Last Admin Trade Name Freq PRN Reason Stop Dose Admin Ketorolac Tromethamine 30 mg 01/10/21 05:39 01/10/21 06:41 Ketorolac Tromethamine 30 Mg/Ml Sdv IVP 01/10/21 05:40 30 mg 1T ONE Administration Discharge Plan Admission/Discharge Dx Primary DC Diagnosis: Acute Urinary Retention/ Leukocytosis/ RYANNE/ AAA / Hx Elev PSA / AMA DC ED Provider: Donny Gambino ED Status: Physician Time Seen by Provider: 01/10/21 05:29 Triaged At: 01/10/21 05:06 Condition Condition: Undetermined Discharge Detail Disposition: Against Medical Advice Med Rec New Prescriptions: New sulfamethoxazole-trimethoprim [Bactrim DS] 800-160 mg tablet 1 tab PO BID Qty: 7 RF: 0 No Action Nitroglycerin (Nitrek (Nitroglycerin)) 0.4 mg Transdermal PRN Qty: 1 RF: 0 (DME) lancing device with lancets [Accu-Chek Multiclix Lancet] Kit 1 ea miscellaneous DAILY Qty: 1 RF: 5 metformin 500 mg tablet 500 mg PO BID Qty: 60 RF: 5 omeprazole magnesium 20 mg capsule,delayed release(DR/EC) 1 tab PO DAILY Qty: 30 RF: 5 Blood Sugar Diagnostic (Test Strip) 1 strip IN DAILY Qty: 1 RF: 5 niacin 500 mg tablet 3 tab PO BID Qty: 180 RF: 5 omega-3 acid ethyl esters [Lovaza] 1 gram capsule 2 g PO BID Qty: 120 RF: 5 albuterol sulfate [ProAir HFA] 8.5 GM HFA aerosol inhaler 2 puff Inhalation Q4HPRN PRNQty: 1 RF: 5 isosorbide mononitrate 20 MG tablet 20 mg PO TID Qty: 90 RF: 5 sertraline [Zoloft] 50 MG tablet 50 mg PO DAILY Qty: 30 RF: 5 fluticasone propion-salmeterol [Advair Diskus] 1 EACH blister with device 1 puff Inhalation BID Qty: 1 RF: 5 tiotropium bromide [Spiriva with HandiHaler] 18 MCG capsule, w/inhalation device 1 cap Inhalation DAILY Qty: 30 RF: 5 ferrous sulfate 324 MG tablet,delayed release (DR/EC) 324 mg PO BID Qty: 60 RF: 11 aspirin 325 MG tablet 325 mg PO DAILY Qty: 30 RF: 5 oxycodone-acetaminophen [Percocet] 1 EACH tablet 1 - 2 tab PO Q6HPRN PRNQty: 240 RF: 0 pregabalin [Lyrica] 50 MG capsule 50 mg PO BID Qty: 60 RF: 0 albuterol sulfate [ProAir HFA] 8.5 GM HFA aerosol inhaler 2 puff Inhalation Q4HPRN PRNQty: 1 RF: 0 lisinopril 5 MG tablet 5 mg PO DAILY Qty: 30 RF: 0 epinephrine [EpiPen] 0.3 MG/0.3 ML auto-injector 0.3 mg IM PRN Qty: 1 RF: 0 Discharge Education Printouts: Acute Kidney Injury (DC), Urinary Retention in Men (ED), Carbone Catheter Placement and Care (ED), Abdominal Pain (ED) Follow Up Visit/Referrals: AMADO TORO [PHYSICIAN] - KARINE MONTES DE OCA [Primary Care Provider] - Medications Medication reconciliation performed by provider at discharge: Yes Follow Up Care/Instructions Diet/Activity/Wound Care..: Patient insists on AMA because his is delivering a baby upstairs in [place] as we speak. Cant change his mi nd Patient invited to return to the emergency department to refill his total evaluation at any time. See DX is See Rx including Carbone care Advised to see his PCP at [facility] soon as possible and urologist within the next 2 to 3 days to have his Carbone removed and renal function rechecked such as Dr. Toro Patient also to return emergency department in the event of any increased pain fever chills or new symptoms or inability to void , , Report Signers: <Electronically signed by Donny Gambino MD> Donny Gambino MD 01/10/21719 Donny Gambino MD SIGNATURE DA Report Cosigners: D: PRIYA 01/10/21600 T: PRIYA 01/10/21600 CC: Karine Montes De Oca Name Value Range Interpretation Code Description Data Martine rce(s) Supporting Document(s) ID Date Data Source [id number] 01/10/2021 06:37:00 AM EDT [facility] @01/10/21 0612: MANUAL DIFF added. RFLXG = DIFF. Special Instructions: Lab may order repe at test if initial test elevatedPhysician If elevated, reflex second test in 4-6 hrs @01/10/21 0612: MANUAL DIFF added. RFLXG = DIFF. Name Value Range Interpretation Code Description Data Martine rce(s) Supporting Document(s) Leukocytes [#/volume] in Blood by Automated count 16.9 10*3/uL 4.45-10.71 Above high normal [facility] Erythrocytes [#/volume] in Blood by Automated count 4.53 10*6/uL 4.3- 6.1 N [facility] Hemoglobin [Moles/volume] in Blood 13.5 g/dL 13-18 N [facility] Hematocrit [Volume Fraction] of Blood by Automated count 41.4 % 42-52 Below low normal [facility] Erythrocyte mean corpuscular volume [Ent itic volume] in Cord blood by Automated count 91 fL 80-96 N [facility] ital Erythrocyte mean corpuscular hemoglobin [Entitic mass] by Au tomated count 30 pg 27-31 N [facility] Erythrocyte mean corpuscular hemoglobin concentration [Mass/volume] in Cord blood 33 g/dL 33-37 N [facility] ital Erythrocyte distribution width [Entitic volume] by Automated count 13 % 11-15 N [facility] Platelets [#/volume] in Blood by Automated count 290 10*3/uL 130-472 N [facility] Platelet mean volume [Entitic volume] in Blood 10.3 fL 9.1-13.1 N [facility] Neutrophils/100 leukocytes in Blood by Automated count 90.5 % 41-77 Above high normal [facility] @PERFORM SLIDE SCAN IF NOT AGREE MAN DIF F@DOCUMENT SLIDE SCAN COMMENT Neutrophils [#/volume] in Blood by Automated count 15.3 U 1.7-7.6 Above high normal [facility] Lymphocytes/100 leukocytes in Blood by Automated count 3.9 % 14-46 Below low normal [facility] Lymphocytes [#/volume] in Blood by Automated count 0.7 U 0.6-4.6 N [facility] Monocytes/100 leukocytes in Blood by Automated count 4.8 % 4-12 N [facility] Monocytes [#/volume] in Blood by Automated count 0.8 U 0.2-1.2 N [facility] Eosinophils/100 leukocytes in Blood by Automated count 0.1 % 0-7 N [facility] Eosinophils [#/volume] in Blood by Automated count 0.0 U 0.0-0.5 N [facility] Basophils/100 leukocytes in Blood by Automated count 0.2 % 0.4-1.3 Below low normal [facility] Basophils [#/volume] in Blood by Automated count 0.0 U 0.0-0.2 N [facility] NUCLEATED RED BLOOD CELL 0 % [facility] NUCLEATED RED BLOOD CELL# 0 U [facility] Immature granulocytes [Presence] in Blood by Automated count 0-2 N [facility] Immature granulocytes [#/volume] in Blood by Automated count 0.1 U 0-0.1 N [facility] Manual Differential panel - Blood Manual Diff Added [facility] ID Date Data Source [id number] 01/10/2021 06:43:00 AM EDT [facility] @01/10/21 0612: MANUAL DIFF added. RFLXG = DIFF. Special Instructions: Lab may order repe at test if initial test elevatedPhysician If elevated, reflex second test in 4-6 hrs @01/10/21 0612: MANUAL DIFF added. RFLXG = DIFF. Name Value Range Interpretation Code Description Data Martine rce(s) Supporting Document(s) Lactic w Rfx (if elevated) 1.2 mmol/L 0.5-2.0 N [facility] ID Date Data Source [id number] 01/10/2021 06:52:00 AM EDT [facility] @01/10/21 0612: MANUAL DIFF added. RFLXG = DIFF. Special Instructions: Lab may order repe at test if initial test elevatedPhysician If elevated, reflex second test in 4-6 hrs @01/10/21 0612: MANUAL DIFF added. RFLXG = DIFF. Name Value Range Interpretation Code Description Data Martine rce(s) Supporting Document(s) Urea nitrogen [Mass/volume] in Serum or Plasma 29 mg/dL 9-23 Above high normal [facility] Sodium [Moles/volume] in Serum or Plasma 133 mmol/L 132-146 N [facility] Potassium [Moles/volume] in Serum or Plasma 4.5 mmol/L 3.5-5.5 N [facility] Chloride [Moles/volume] in Serum or Plasma 101 mmol/L 99-109 N [facility] Carbon dioxide, total [Moles/volume] in Serum or Plasma 24 mmol/L 20 -31 N [facility] Anion gap in Serum or Plasma 13 mmol/L 8-16 N [facility] Glucose [Mass/volume] in Serum or Plasma 127 mg/dL 74-106 Above high normal [facility] Creatinine 1.8 mg/dL 0.5-1.1 Above high normal [facility] Glomerular filtration rate/1.73 sq M.pre dicted [Volume Rate/Area] in Serum or Plasma 37 ml/min ABOVE 60 [facility] Alanine aminotransferase [Enzymatic acti vity/volume] in Serum or Plasma by With P-5'-P 30 U/L 10-49 N [facility] ital Aspartate aminotransferase [Enzymatic ac tivity/volume] in Serum or Plasma by With P-5'-P 22 U/L 0-33 N [facility] pital Alkaline phosphatase [Enzymatic activity/volume] in Serum or Plasma 103 U/L 45-129 N [facility] Calcium [Mass/volume] in Serum or Plasma 9.6 mg/dL 8.5-10.1 [facility] Bilirubin.total [Mass/volume] in Serum or Plasma 0.6 mg/dL 0.3-1.2 [facility] Albumin [Mass/volume] in Serum or Plasma by Bromocresol purple (BCP) dye binding method 4.4 g/dL 3.2-4.8 [facility] ital Protein [Mass/volume] in Serum or Plasma 8.5 g/dL 5.7-8.2 Above high normal [facility] ID Date Data Source [id number] 01/15/2021 06:00:00 AM EDT [facility] @01/10/21 0612: MANUAL DIFF added. RFLXG = DIFF. Special Instructions: Lab may order repe at test if initial test elevatedPhysician If elevated, reflex second test in 4-6 hrs @01/10/21 0612: MANUAL DIFF added. RFLXG = DIFF. Name Value Range Interpretation Code Description Data Martine rce(s) Supporting Document(s) Bacteria identified in Blood by Culture [facility] NO GROWTH AFTER 5 DAYS ID Date Data Source [id number] 01/10/2021 06:37:00 AM EDT [facility] @01/10/21 0612: MANUAL DIFF added. RFLXG = DIFF. Special Instructions: Lab may order repe at test if initial test elevatedPhysician If elevated, reflex second test in 4-6 hrs @01/10/21 0612: MANUAL DIFF added. RFLXG = DIFF. Name Value Range Interpretation Code Description Data Martine rce(s) Supporting Document(s) Cells counted [#] 100 [facility] Neutrophils [#/volume] in Blood by Manual count 87 % 41-77 Above high normal [facility] Lymphocytes [#/volume] in Blood by Manual count 8 % 14-46 Below low normal [facility] Monocytes [#/volume] in Blood by Manual count 5 % 4-12 N [facility] Platelets [#/volume] in Blood by Estimate APPEARS NORMAL NORMAL [facility] Morphology [Interpretation] in Blood Narrative APPEARS NORMAL NORMAL [facility] ID Date Data Source [id number] 01/10/2021 06:52:00 AM EDT [facility] @01/10/21 0612: MANUAL DIFF added. RFLXG = DIFF. Special Instructions: Lab may order repe at test if initial test elevatedPhysician If elevated, reflex second test in 4-6 hrs @01/10/21 0612: MANUAL DIFF added. RFLXG = DIFF. Name Value Range Interpretation Code Description Data Martine rce(s) Supporting Document(s) Amylase [Enzymatic activity/volume] in Serum or Plasma 90 U/L 30- 118 N [facility] ID Date Data Source [id number] 01/10/2021 06:52:00 AM EDT [facility] @01/10/21 0612: MANUAL DIFF added. RFLXG = DIFF. Special Instructions: Lab may order repe at test if initial test elevatedPhysician If elevated, reflex second test in 4-6 hrs @01/10/21 0612: MANUAL DIFF added. RFLXG = DIFF. Name Value Range Interpretation Code Description Data Martine rce(s) Supporting Document(s) Lipase [Enzymatic activity/volume] in Serum or Plasma 78 U/L 73-3 93 N [facility] ID Date Data Source [id number] 01/10/2021 06:52:00 AM [facility] @01/10/21 0612: MANUAL DIFF added. RFLXG = DIFF. Special Instructions: Lab may order repe at test if initial test elevatedPhysician If elevated, reflex second test in 4-6 hrs @01/10/21 0612: MANUAL DIFF added. RFLXG = DIFF. Name Value Range Interpretation Code Description Data Martine rce(s) Supporting Document(s) Troponin I.cardiac [Mass/volume] in Serum or Plasma Less Than 0.015 0.00-0.09 [facility] Less than 0.09 NG/ML Negative0.10 - 0.77 NG/ML High Risk0.78 NG/ML or Greater PositiveThe WHO defined the cutoff (definition for diagnosis of AR)for this method as 0.78 ng/ml. ID Date Data Source [id number] 01/10/2021 07:39:00 AM [facility] Name Value Range Interpretation Code Description Data Martine rce(s) Supporting Document(s) Prostate specific Ag [Mass/volume] in Serum or Plasma 53.40 ng/m L 0.0-4.0 Above high normal [facility] @Review & document.Repeated by: Alison Branch 01/10/21 0739.Result Confirmation: 53.4 ng/mL ID Date Data Source [id number] 01/10/2021 06:31:00 AM [facility] Name Value Range Interpretation Code Description Data Martine rce(s) Supporting Document(s) Prothrombin Time (Patient) 10.5 s 9.6-12.3 N [facility] INR 1.0 0.9-1.1 N [facility] THE INR IS OPERATIONALLY DEFINED FOR DIVINE SH PLASMA FROMPATIENTS STABILIZED ON ORAL ANTICOAGULANTS.ROUTINE ANTICOAGULANT THERAPY 2.0-3.0RECURRENT SYSTEMIC EMBOLISM/HEART VALVE REPLACEMENT 2.5-3.5 aPTT.lupus sensitive (LA screen) 26.4 s 22.7-31.6 [facility] Procedure Social History Code Duration Value Status Description Data Source(s ) Smoking 05/06/2021 12:00:00 AM EDT Current Smoker completed Curre nt Smoker eCW1 ([facility]) Smoking 05/06/2021 12:00:00 AM EDT Current Smoker completed Curre nt Smoker eCW1 ([facility]) Smoking 05/06/2021 12:00:00 AM EDT Current Smoker completed Curre nt Smoker eCW1 ([facility]) Smoking 04/04/2021 12:00:00 AM EDT Current Smoker completed Curre nt Smoker eCW1 ([facility]) Alcohol intake 03/13/2021 12:00:00 AM EDT Current drinker of al cohol (finding) completed Current drinker of alcohol (finding) [facility] Tobacco use and exposure 03/13/2021 12:00:00 AM EDT Never used co mpleted Never used [facility] Cigarette pack-years 03/13/2021 12:00:00 AM EDT UNK completed [facility] Cigarettes smoked current (pack per day) - Reported 03/13/20 12:00:00 AM EDT UNK completed [facility] Smoking 03/13/2021 12:00:00 AM EDT Current every day smoker co mpleted Current every day smoker [facility] Smoking 03/05/2021 12:00:00 AM EDT Current Smoker completed Curre nt Smoker eCW1 ([facility]) Smoking 03/05/2021 12:00:00 AM EDT Current Smoker completed Curre nt Smoker eCW1 ([facility]) Smoking 02/22/2021 12:00:00 AM EDT Current Smoker completed Curre nt Smoker eCW1 ([facility]) 01/26/2021 12:49:55 PM EDT Current every day smoker co mpleted Current every day smoker [facility] Smoking 01/26/2021 12:49:00 PM EDT Current every day smoker co mpleted Current every day smoker [facility] 01/25/2021 03:24:04 PM EDT Current every day smoker co mpleted Current every day smoker [facility] Smoking 01/25/2021 03:24:00 PM EDT Current every day smoker co mpleted Current every day smoker [facility] Smoking 01/22/2021 12:00:00 AM EDT Current Smoker completed Curre nt Smoker eCW1 ([facility]) Smoking 01/22/2021 12:00:00 AM EDT Current Smoker completed Curre nt Smoker eCW1 ([facility]) Smoking 01/22/2021 12:00:00 AM EDT Current Smoker completed Curre nt Smoker eCW1 ([facility]) Smoking 01/22/2021 12:00:00 AM EDT Current Smoker completed Curre nt Smoker eCW1 ([facility]) Smoking 01/22/2021 12:00:00 AM EDT Current Smoker completed Curre nt Smoker eCW1 ([facility]) 01/17/2021 02:40:11 PM EDT Current every day smoker co mpleted Current every day smoker [facility] Smoking 01/17/2021 02:40:00 PM EDT Current every day smoker co mpleted Current every day smoker [facility] 01/16/2021 08:28:00 PM EDT Current every day smoker co mpleted Current every day smoker [facility] Smoking 01/16/2021 08:28:00 PM EDT Current every day smoker co mpleted Current every day smoker [facility] 01/14/2021 10:38:58 PM EDT Current every day smoker co mpleted Current every day smoker [facility] Smoking 01/14/2021 10:38:00 PM EDT Current every day smoker co mpleted Current every day smoker [facility] 01/12/2021 06:56:49 PM EDT Current every day smoker co mpleted Current every day smoker [facility] Smoking 01/12/2021 06:56:00 PM EDT Current every day smoker co mpleted Current every day smoker [facility] Vital Signs ID Date Data Source UNK Name Value Range Interpretation Code Description Data Source(s) Body weight 165 [lb_av] 165 [lb_av] eCW1 ([facility]) Body height 72 [in_i] 72 [in_i] eCW1 ([facility]) Body weight 74.84 kg 74.84 kg eCW1 ([facility]) Body mass index (BMI) [Ratio] 22.38 kg/m2 22.38 kg/m2 eCW1 ([facility]) Heart rate 88 /min 88 /min eCW1 ([facility]) Respiratory rate 18 /min 18 /min eCW1 ([facility]) Body temperature 97.6 [degF] 97.6 [degF] eCW1 ( [facility]) Systolic blood pressure 126 mm[Hg] 126 mm[Hg] e CW1 ([facility]) Diastolic blood pressure 74 mm[Hg] 74 mm[Hg] eCW1 ([facility]) Body weight 165 [lb_av] 165 [lb_av] eCW1 ([facility]) Body height 72 [in_i] 72 [in_i] eCW1 ([facility]) Body mass index (BMI) [Ratio] 22.38 kg/m2 22.38 kg/m2 eCW1 ([facility]) Heart rate 92 /min 92 /min eCW1 ([facility]) Respiratory rate 18 /min 18 /min eCW1 ([facility]) Body temperature 97.0 [degF] 97.0 [degF] eCW1 ( [facility]) Systolic blood pressure 128 mm[Hg] 128 mm[Hg] e CW1 ([facility]) Diastolic blood pressure 66 mm[Hg] 66 mm[Hg] eCW1 ([facility]) Systolic blood pressure 132 mm[Hg] 132 mm[Hg] M [facility] Diastolic blood pressure 75 mm[Hg] 75 mm[Hg] [facility] Heart rate 94 /min 94 /min [facility] Body temperature 36.5 Ariadne 36.5 Ariadne [facility] Respiratory rate 20 /min 20 /min [facility] Body height 177.8 cm 177.8 cm [facility] Body weight 74.299 kg 74.299 kg [facility] Body mass index (BMI) [Ratio] 23.50 kg/m2 23.50 kg/m2 [facility] Body weight 165 [lb_av] 165 [lb_av] eCW1 ([facility]) Body weight 74.84 kg 74.84 kg eCW1 ([facility]) Body height 72 [in_i] 72 [in_i] eCW1 ([facility]) Body mass index (BMI) [Ratio] 22.38 kg/m2 22.38 kg/m2 eCW1 ([facility]) Heart rate 97 /min 97 /min eCW1 ([facility]) Respiratory rate 18 /min 18 /min eCW1 ([facility]) Systolic blood pressure 124 mm[Hg] 124 mm[Hg] e CW1 ([facility]) Diastolic blood pressure 80 mm[Hg] 80 mm[Hg] eCW1 ([facility]) Body weight 165 [lb_av] 165 [lb_av] eCW1 ([facility]) Body height [in_i] eCW1 ([facility]) Body mass index (BMI) [Ratio] 22.38 kg/m2 22.38 kg/m2 eCW1 ([facility]) Heart rate 71 /min 71 /min eCW1 ([facility]) Respiratory rate 17 /min 17 /min eCW1 ([facility]) Systolic blood pressure 127 mm[Hg] 127 mm[Hg] e CW1 ([facility]) Diastolic blood pressure 82 mm[Hg] 82 mm[Hg] eCW1 ([facility]) Body weight 165 [lb_av] 165 [lb_av] eCW1 ([facility]) Body height [in_i] eCW1 ([facility]) Body mass index (BMI) [Ratio] 22.38 kg/m2 22.38 kg/m2 eCW1 ([facility]) Heart rate 98 /min 98 /min eCW1 ([facility]) Respiratory rate 18 /min 18 /min eCW1 ([facility]) Body temperature 97.4 [degF] 97.4 [degF] eCW1 ( [facility]) Systolic blood pressure 117 mm[Hg] 117 mm[Hg] e CW1 ([facility]) Diastolic blood pressure 85 mm[Hg] 85 mm[Hg] eCW1 ([facility]) Patient Treatment Plan of Care Planned Activity Planned Date Details Description Data Source (s) Levofloxacin 500 MG Oral Tablet 05/10/2021 12:00:00 AM EDT eCW1 ([facility]) Ciprofloxacin 500 MG Oral Tablet [Cipro] 01/18/2021 12:00:00 AM EDT eCW1 ([facility]) Sodium Phosphate, Dibasic 59.3 MG/ML / S odium Phosphate, Monobasic 161 MG/ML Enema 01/18/2021 12:00:00 AM EDT eCW1 ([facility]) Tamsulosin hydrochloride 0.4 MG Oral Capsule 01/15/2021 12:00:00 AM EDT [facility]
[2021-05-13] MEDS ORDERED: fentaNYL 100 MCG/2 ML INJECTION (J3010) As Ordered ONE ×3 (13:25→15:50)
[2021-05-13] MEDS ORDERED: MIDAZOLAM INJ 2MG/2ML VIAL (J2250 PER 1MG) As Ordered ONE (13:25)
[2021-05-13] MEDS ORDERED: LIDOCAINE 2% 100MG/5ML SDV (FOR ANES.) As Ordered ONE (13:25)
[2021-05-13] MEDS ORDERED: ROCURONIUM BROMIDE 50 MG/5 ML VIAL As Ordered ONE (13:25)
[2021-05-13] MEDS ORDERED: propofoL 200 MG/20 ML VIAL As Ordered ONE (13:25)
[2021-05-13] MEDS ORDERED: ONDANSETRON 4MG/2ML VIAL As Ordered ONE (13:26)
[2021-05-13] MEDS ORDERED: dexameTHASONE 4 MG/ML 1ML VIAL (J1100 PER 1MG) As Ordered ONE (13:26)
[2021-05-13] MEDS ORDERED: ACETAMINOPHEN 1000MG 100ML IV BTL (OFIRMEV) (J0131 PER 10MG) As Ordered ONE (14:44)
[2021-05-13] MEDS ORDERED: SUGAMMADEX SODIUM 500 MG/5 ML VIAL (BRIDION) As Ordered ONE (14:59)
[2021-05-13] MEDS ORDERED: PHENYLephrine 500MCG 5ML (100MCG/ML) SYRINGE As Ordered ONE (15:17)
[2021-05-13] MEDS ORDERED: ePHEDrine SULFATE 25 MG/5 ML(5MG/ML) SYRINGE As Ordered ONE (15:17)
[2021-05-13] MEDS ORDERED: FUROSEMIDE 100MG/10ML VIAL (J1940) As Ordered ONE (16:11)
[2021-05-13] MEDS ORDERED: ONDANSETRON 4MG/2ML VIAL IV PRN (16:55)
[2021-05-13] MEDS ORDERED: oxyCODONE 5MG TAB PO PRN (16:55)
[2021-05-13] MEDS ORDERED: LR 1,000 ML IV SCH (16:55)
[2021-05-13] MEDS ORDERED: fentaNYL 100 MCG/2 ML INJECTION (J3010) IV PRN (16:55)
[2021-05-13] MEDS ORDERED: ACETAMINOPHEN TAB 650MG DOSE (2X325MG) PO PRN (17:00)
--- NOTE | 2021-05-13 18:10 | RO ---
OPERATIVE NOTE DATE OF OPERATION: 05/13/2021 PREOPERATIVE DIAGNOSES: Benign prostatic hyperplasia with urinary retention. POSTOPERATIVE DIAGNOSIS: Benign prostatic hyperplasia with urinary retention. PROCEDURE: Cystoscopy, button transurethral electrovaporization of the prostate. SURGEON: Amado Nj MD HOSPITAL CHIEF EXECUTIVE OFFICER: None. ANESTHESIA: General. OPERATIVE INDICATIONS: This is a 70-year-old male with benign prostatic hyperplasia with urinary retention, here for treatment. DESCRIPTION OF PROCEDURE: The patient was brought to the operating room and general anesthesia was induced. Prophylactic antibiotics were infused. He was placed in the dorsal lithotomy position, and prepped and draped in the usual sterile fashion. A resectoscope was inserted in the urethral meatus and advanced into the bladder using a visual obturator. Of note, the patient had trilobar benign prostatic hyperplasia with a very prominent median lobe. I made note of the location of the ureteral orifices as well as the verumontanum. I then started vaporizing hyperplastic tissue first on the median lobe and then circumferentially at the bladder neck. I then vaporized hyperplastic tissue on both lateral lobes. I kept doing this until there was a clear channel established. Throughout the procedure, I made sure not to vaporize close to the ureteral orifices or distal to the verumontanum. Once there was a clear channel established, hemostasis was obtained using the coagulation current. Once satisfied with hemostasis, the resectoscope was removed and an 18 [place] Valdez catheter was inserted into the bladder. The balloon was filled with 15 mL of sterile water and then the catheter was connected to gravity drainage. At this point, the patient was taken out of the dorsal lithotomy position, awakened from anesthesia and transported to the recovery room in stable condition. ESTIMATED BLOOD LOSS: 25 mL COMPLICATIONS: None. SPECIMENS: None. PLAN: The patient will follow up in urology clinic in approximately one week for catheter removal voiding trial. ALISON
== END 2021-05-13 18:05 | disposition home or self-care (01) ==
LOC: M SDC 12:52
PROVIDERS: ATTEND Urology
DX: N40.1 Benign prostatic hyperplasia with lower urinary tract symptoms (principal); F17.218 Nicotine dependence, cigarettes, with other nicotine-induced disorders; E11.9 Type 2 diabetes mellitus without complications; E78.5 Hyperlipidemia, unspecified; Z98.61 Coronary angioplasty status; Z79.899 Other long term (current) drug therapy
CPT/HCPCS: 52601; J0131; J0690; J1100; J1940; J2250; J2370; J2405; J3010